=== PATIENT | female | born 1935 | race Caucasian/White ===

== ENCOUNTER → 2018-03-02 11:13 | Outpatient (CLI) | payer MEDICARE, OTHER, SELFPAY ==
[2018-03-02 14:13] LABS: Absolute Lymphocyte Count 1.22 X10^3/ul (0.83-4.51); Absolute Neutrophil Count 3.7 X10^3/uL (2.0-7.7); Basophil# 0.04 X10^3/uL; Basophil% 0.7 % (0-1); Eosinophil# 0.12 X10^3/uL; Eosinophils% 2.2 % (0-5); Hematocrit 35.4 % (37-47); Lymphocyte # 1.22 X10^3/ul (4.0); Lymphocyte % 21.9 % (19-41); Mean Corp Hgb Conc 31.1 g/gl (32-36); Mean Corpuscular Hgb 29.2 pg (27.0-32.0); Mean Corpuscular Volume 93.9 fL (81-99); Mean Platelet Vol. 10.4 fl (6.2-12.0); Monocyte# 0.52 X10^3/uL; Monocyte% 9.4 % (0-10); Neutrophil # 3.65 X10^3/uL (2.7-7.7); Neutrophil % 65.6 % (47-70); Platelet Count 183 K/mm3 (150-450); RBC Distribution Width CV 14.4 % (11.6-14.6); RBC Distribution Width SD 47.5 fl (35.1-43.9); Red Blood Count 3.77 M/mm3 (4.2-5.4); White Blood Count 5.6 K/mm3 (4.4-11.0)
[2018-03-02 14:16] LABS: POSITIVE COUNT NO; POSITIVE DIFFERENTIAL NO; POSITIVE MORPHOLOGY NO
[2018-03-02 14:40] LABS: ALB/GLOB Ratio 1.1 RATIO (0.9-2.4); AST(SGOT) 18 U/L (15-37); Alanine Aminotransfer ALT/SGPT 23 U/L (13-56); Albumin, Serum 3.8 g/dL (3.2-5.0); Alkaline Phosphatase 70 U/L (45-117); Anion Gap 8 (5-15); BUN 26 mg/dL (7-18); Calcium,Total 8.9 mg/dL (8.5-10.1); Chloride 106 mmol/L (98-107); Cholesterol 193 mg/dL (200); Creatinine, Serum 0.93 mg/dL (0.55-1.02); EST Glomerular Filtration Rate 61 mL/min (>60); Est Glom Filt Rate - Afr Amer 74 mL/min (>60); Globulin 3.5 g/dL (2.2-4.2); Glucose 104 mg/dL (74-106); High Density Lipoprotein 77 mg/dL; Protein, Total 7.3 g/dL (6.4-8.2); Sodium Level 142 mmol/L (136-145); Thyroid Stim Hormone (TSH) 1.25 uIU/mL (0.358-3.74); Triglycerides 66 mg/dL; Very Low Density Lipoprotein 13 mg/dL (5-40)
== END ==
PROVIDERS: Family Provider Family Medicine; PCP Family Medicine; Visit Provider Family Medicine
DX: Z02.9 Encounter for administrative examinations, unspecified (principal); E03.9 Hypothyroidism, unspecified; I10 Essential (primary) hypertension
CPT/HCPCS: 36415; 80053; 80061; 84443; 85025

== ENCOUNTER 2018-03-26 10:16 | Emergency (ER) | payer MEDICARE, OTHER, SELFPAY ==
[2018-03-26 10:18] VITALS: BP 164/95; PULSE 63; RESP 18; TEMP 36.3; O2SAT 97; BMI 37.1
--- NOTE | 2018-03-26 10:36 | ED.VISSUMM ---
- ER Visit Summary Date of Service: 03/26/18 Chief Complaint: [] Left knee pain History of Present Illness: The patient is a 83 F [] diabetes and hypertension all of which are stable, arthritis, she has chronic pain to the left knee she seen multiple physicians in the past including orthopedics was told to follow-up, she brought in by grandson no recent injury simply wants to be reevaluated for the knee pain she also complains of pain for over a year and her calf she has no history of DVT recent trauma no fever no cough usually walks with a cane she has angulation to both knees that is not new or different Physical Examination: [] Able to walk to the the bed her heart tones are distant the lungs are clear the abdomen is obese but soft nontender she only complaint is left knee her knee is angulated bilaterally she has full range of motion of both knees she has no real pain with movement of the knees there is some mild swelling there is no warmth or tenderness to suggest knee effusion infection she indicates the knees are usually to this degree she complains of pain to the calf is very mild the distal foot exam is unremarkable normal pulses capillary refill and sensation she is able dorsi and plantarflex at the ankle the toes are normal she is hip flexion extension is normal she able to stand and walk and she is a cane to support herself and her gait is stable and normal Test Results: [] Emergency Department Course and Treatment: [] Duplex scanning is not currently available at [facility] explained this to the patient her's grandson, do not wish to wait for the tach to be called in for the skin to be done, she has never had a DVT before, she is complaining of this calf pain for years, they prefer and understand need for outpatient management for this ultrasound to be obtained, x-rays obtained that shows DJD nothing acute Has been seen in the past by orthopedics for this condition cannot remember who saw her at this time will refer her back to her primary care physician, should have an outpatient duplex scan, she is referred to Dr. Levy adult secondary education instructor for orthopedics and return for change in symptoms, she continues Tylenol for her pain Treatment Plan: [] Disposition: [] Home stable Impression: [] Acute recurrent left knee pain history of arthritis This note was generated with [employer] software. It may contain incorrect words, spelling, and punctuation that were not noted in review of the chart prior to signing ED Disposition - Plan for ED Patient: Chief Complaint: Lower Extremity Injury Instructions: ED Meniscal Injury Knee Poss Referrals: Efrain Corbin MD [Primary Care Provider] - Maximus Levy MD [STAFF PHYSICIAN] -
--- NOTE | 2018-03-26 10:39 | ED.DCSUM_ITS ---
- ER Visit Summary Date of Service: 03/26/18 Chief Complaint: [] Left knee pain History of Present Illness: The patient is a 83 F [] diabetes and hypertension all of which are stable, arthritis, she has chronic pain to the left knee she seen multiple physicians in the past including orthopedics was told to follow-up , she brought in by grandson no recent injury simply wants to be reevaluated for the knee pain she also complains of pain for over a year and her calf she has no history of DVT recent trauma no fever no cough usually walks with a cane she has angulation to both knees that is not new or different Physical Examination: [] Able to walk to the the bed her heart tones are distant the lungs are clear the abdomen is obese but soft nontender she only complaint is left knee her knee is angulated bilaterally she has full range of motion of both knees she has no real pain with movement of the knees there is some mild swelling there is no warmth or tenderness to suggest knee effusion infection she indicates the knees are usually to this degree she complains of pain to the calf is very mild the distal foot exam is unremarkable normal pulses capillary refill and sensation she is able dorsi and plantarflex at the ankle the toes are normal she is hip flexion extension is normal she able to stand and walk and she is a cane to support herself and her gait is stable and normal Test Results: [] Emergency Department Course and Treatment: [] Duplex scanning is not currently available at [facility] explained this to the patient her's grandson, do not wish to wait for the tach to be called in for the skin to be done, she has never had a DVT before, she is complaining of this calf pain for years, they prefer and understand need for outpatient management for this ultrasound to be obtained, x-rays obtained that shows DJD nothing acute Has been seen in the past by orthopedics for this condition cannot remember who saw her at this time will refer her back to her primary care physician, should have an outpatient duplex scan, she is referred to Dr. Levy mounter [employer] for orthopedics and return for change in symptoms, she continues Tylenol for her pain Treatment Plan: [] Disposition: [] Home stable Impression: [] Acute recurrent left knee pain history of arthritis This note was generated with [employer] software. It may contain incorrect words, spelling, and punctuation that were not noted in review of the chart prior to signing ED Disposition - Plan for ED Patient: Chief Complaint: Lower Extremity Injury Instructions: ED Meniscal Injury Knee Poss Referrals: Efrain Corbin MD [Primary Care Provider] - Maximus eLvy MD [STAFF PHYSICIAN] -
--- NOTE | 2018-03-26 10:39 | ED.DEP ---
ED Disposition - Plan for ED Patient: Chief Complaint: Lower Extremity Injury Instructions: ED Meniscal Injury Knee Poss Referrals: Efrain Coribn MD [Primary Care Provider] - Maximus Levy MD [STAFF PHYSICIAN] -
--- NOTE | 2018-03-26 11:05 | RAD_ITS ---
STUDY: X-RAY - LEFT KNEE REASON FOR EXAM: Female, 83 years old. Chronic knee pain TECHNIQUE: 6 view(s) of the knee. COMPARISON: None. FINDINGS: There is demineralization of the visualized distal femur. There is demineralization of the tibia and fibula. There is arthrosis of the proximal tibiofibular articulation. There is severe degenerative arthrosis of the medial femorotibial compartment with severe joint space narrowing. There is severe degenerative arthrosis of the lateral femorotibial compartment with severe joint space narrowing. Normal patellofemoral articulation. There is a chronic remodeled compressed appearance of the lateral compartment. The soft tissue structures are unremarkable. RAD/Knee 4 or More Views IMPRESSION: Advanced left knee arthrosis. Chronic compression of the lateral compartment without acute fracture or obvious joint effusion. Electronically Signed: Nora Fagan MD at 11:31 EDT Tel , Service support ,
[2018-03-26 12:14] VITALS: BP 163/76; PULSE 68; RESP 18; O2SAT 95
== END 2018-03-26 12:14 | disposition home or self-care (01) ==
LOC: ED 11:34
PROVIDERS: Emergency Provider Emergency Medicine; Family Provider Family Medicine; PCP Family Medicine
DX: M17.12 Unilateral primary osteoarthritis, left knee (principal); G89.29 Other chronic pain; I10 Essential (primary) hypertension; E11.9 Type 2 diabetes mellitus without complications; Z79.82 Long term (current) use of aspirin; Z79.84 Long term (current) use of oral hypoglycemic drugs; Z79.899 Other long term (current) drug therapy
CPT/HCPCS: 73564; 99282

== ENCOUNTER → 2018-03-27 10:48 | Outpatient (CLI) | payer MEDICARE, OTHER, SELFPAY ==
--- NOTE | 2018-03-27 11:15 | VDLE_ITS ---
Reason For Study: Pain LLE Procedure LEFT Exam performed in department. GSV is normal. A preliminary report was called and/or faxed CFV is compressible, spontaneous, phasic, to Dr. Corbin. competent, and demonstrates normal augmentation. FV is compressible, spontaneous, phasic, competent and demonstrates normal augmentation. POP V is compressible, spontaneous, phasic, competent and demonstrates normal augmentation. T/P Trunk is compressible. PTV is compressible. LT PerV is compressible. Hypoechoic, non vascular structure noted Lt Pop Fossa measuring 3.60cm x 7.06cm and extending into the prox calf measuring 2.05cm x 7.08cm Lt SSV is partially compressible with bright intraluminal echoes consistent with chronic SVT. Interpretation Summary Deep veins of the left lower extremity are patent and compressible segmentally. There is no evidence of left lower extremity deep vein thrombosis. Valvular competence appears intact within the proximal deep venous system on the left . The left greater saphenous vein appears patent and compressible segmentally. Chronic venous changes are noted in the left small saphenous vein, which is partially compressible and demonstrates bright intraluminal echogenicity. A non-vascular, hypoechoic structure is noted in the left popliteal space, with measurements as documented above. This probably represents a popliteal cyst. Clinical correlation is advised. Ordering Physician: Miriam Massey Referring Physician: Efrain Villegas Performed By: Arielle Rivers, KELSY, RVT
== END ==
PROVIDERS: Family Provider Family Medicine; PCP Family Medicine; Visit Provider Emergency Medicine
DX: M79.662 Pain in left lower leg (principal)
CPT/HCPCS: 93971

== ENCOUNTER 2018-07-17 20:27 | Emergency (ER) | payer MEDICARE, OTHER, SELFPAY ==
[2018-07-17 20:29] VITALS: BP 149/78; PULSE 75; RESP 15; TEMP 36.8; O2SAT 97; BMI 35.5
--- NOTE | 2018-07-17 20:47 | ED.DEP ---
ED Disposition - Plan for ED Patient: Chief Complaint: Rash Instructions: Apixaban Oral tablet Referrals: Efrain Corbin MD [Primary Care Provider] -
--- NOTE | 2018-07-17 20:55 | ED.VISSUMM ---
- ER Visit Summary Date of Service: 07/17/18 Chief Complaint: Concern for rash History of Present Illness: The patient is a 83 F presenting with itching of her left ankle which started earlier today. She is concerned about a possibility of a rash on her left ankle. She started Eliquis recently and was advised to watch for rash. She has no difficulty breathing or swallowing. Itching on her ankle has now resolved. She has no fever. Denies chest pain or shortness of breath. Denies other complaints. Physical Examination: Vitals are stable. Patient is afebrile. Alert no acute distress. HEENT exam is unremarkable. No pharyngeal edema or tongue swelling. Neck is supple. Lungs are clear and equal bilaterally. Heart is regular rate and rhythm. Abdomen is soft nontender nondistended. Extremities are unremarkable. No rash. Normal distal pulses. Skin is warm and dry. No focal neurologic deficit. Remainder of exam is unremarkable. Emergency Department Course and Treatment: Her itching is now resolved. No rash is seen. Patient is advised signs and symptoms for which to return to the ED. She is advised to return to the ED if she has any worsening complaints. Advised follow-up with primary care physician. Disposition: Discharge home Impression: Left ankle itching, resolved This note was generated with [employer] dictation software. It may contain incorrect words, spelling, and punctuation that were not noted in review of the chart prior to signing ED Disposition - Plan for ED Patient: Chief Complaint: Rash Instructions: Apixaban Oral tablet Referrals: Efrain Corbin MD [Primary Care Provider] -
[2018-07-17 21:08] VITALS: BP 130/70
== END 2018-07-17 21:09 | disposition home or self-care (01) ==
LOC: ED 20:50
PROVIDERS: Emergency Provider Emergency Medicine; Family Provider Family Medicine; PCP Family Medicine
DX: L29.9 Pruritus, unspecified (principal); I10 Essential (primary) hypertension; E78.00 Pure hypercholesterolemia, unspecified; E11.9 Type 2 diabetes mellitus without complications; E03.9 Hypothyroidism, unspecified; Z79.82 Long term (current) use of aspirin; Z79.84 Long term (current) use of oral hypoglycemic drugs; Z79.899 Other long term (current) drug therapy
CPT/HCPCS: 99282

== ENCOUNTER → 2018-09-05 11:32 | Outpatient (CLI) | payer MEDICARE, OTHER, SELFPAY ==
[2018-09-05 14:18] LABS: AST(SGOT) 15 U/L (15-37); Alanine Aminotransfer ALT/SGPT 22 U/L (13-56); Albumin, Serum 3.7 g/dL (3.2-5.0); Alkaline Phosphatase 74 U/L (45-117); Anion Gap 9 (5-15); BUN 26 mg/dL (7-18); Bilirubin, Direct 0.19 mg/dL (0.00-0.30); Calcium,Total 9.5 mg/dL (8.5-10.1); Chloride 103 mmol/L (98-107); Cholesterol 227 mg/dL (200); Creatinine, Serum 1.04 mg/dL (0.55-1.02); EST Glomerular Filtration Rate 54 mL/min (>60); Est Glom Filt Rate - Afr Amer 65 mL/min (>60); Globulin 3.8 g/dL (2.2-4.2); Glucose 135 mg/dL (74-106); High Density Lipoprotein 90 mg/dL; Potassium 3.9 mmol/L (3.5-5.1); Protein, Total 7.5 g/dL (6.4-8.2); Sodium Level 141 mmol/L (136-145); Triglycerides 83 mg/dL; Very Low Density Lipoprotein 17 mg/dL (5-40)
[2018-09-05 14:34] LABS: Microalbumin:Creatinine Ratio 63.8 mg/g CRE (<30 mg/g CRE)
== END ==
PROVIDERS: Family Provider Family Medicine; PCP Family Medicine; Visit Provider Family Medicine
DX: E11.9 Type 2 diabetes mellitus without complications (principal)
CPT/HCPCS: 36415; 80048; 80061; 80076; 82043; 82570

== ENCOUNTER → 2019-02-09 12:16 | Outpatient (CLI) | payer MEDICARE, OTHER, SELFPAY ==
[2019-02-09 14:20] LABS: Anion Gap 7 (5-15); BUN 26 mg/dL (7-18); BUN/Creat Ratio 26.8 RATIO (10-20); Calcium,Total 9.5 mg/dL (8.5-10.1); Chloride 104 mmol/L (98-107); Creatinine, Serum 0.97 mg/dL (0.55-1.02); EST Glomerular Filtration Rate 58 mL/min (>60); Est Glom Filt Rate - Afr Amer 70 mL/min (>60); Glucose 127 mg/dL (74-106); Potassium 4.2 mmol/L (3.5-5.1); Sodium Level 141 mmol/L (136-145)
== END ==
PROVIDERS: Family Provider Family Medicine; PCP Family Medicine; Referring Provider Family Medicine; Visit Provider Family Medicine
DX: M79.89 Other specified soft tissue disorders (principal)
CPT/HCPCS: 36415; 80048

== ENCOUNTER 2019-05-20 15:34 | Inpatient (IN) | payer MEDICARE, OTHER, SELFPAY ==
[2019-05-20 15:36] VITALS: BP 156/83; PULSE 79; RESP 18; TEMP 37; O2SAT 97; BMI 34.8
--- NOTE | 2019-05-20 15:37 | RAD_ITS ---
STUDY: X-RAY - LEFT KNEE REASON FOR EXAM: Female, 84 years old. Fall, pain. TECHNIQUE: 3 view(s) of the knee. COMPARISON: None. FINDINGS: Normal visualized distal femur. Normal visualized proximal tibia and fibula. Normal proximal tibiofibular articulation. There is severe degenerative arthrosis of the medial femorotibial compartment with severe joint space narrowing. There is severe degenerative arthrosis of the lateral femorotibial compartment with severe joint space narrowing. There is severe degenerative arthrosis of the patellofemoral articulation. Moderate suprapatellar effusion is present. RAD/Knee 3 Views IMPRESSION: Severe tricompartmental osteoarthrosis with moderate suprapatellar effusion. No evidence of acute fracture. Electronically Signed: Carl Hernandez DO at 16:07 EDT , Service support ,
--- NOTE | 2019-05-20 16:50 | ED.DCSUM_ITS ---
- ER Visit Summary Date of Service: 05/20/19 Chief Complaint: Left knee injury History of Present Illness: The patient is a 84 F who was using her walker today trying to get around a fan that was in the door frame when she tripped over the cord and fell. She notes an injury to the left knee. EMS notes that the knee has been swelling since they have seen her. She is unable to get up off the floor on her own. Son called EMS. She denies any pain in the back of the neck of the head. No arm symptoms. Patient was recently placed on Ultram for severe arthritis in the knees but has not been taking it for the past couple days opting for Tylenol. Physical Examination: Afebrile vital signs are stable Gen: Well-nourished well-developed obese Head: Normocephalic atraumatic Eyes: Perrl EOMI ENT: TMs clear no rhinorrhea moist mucous membranes Neck: Supple no lymphadenopathy no JVD nontender CVS: Regular rate rhythm no murmurs normal S1-S2 Respiratory: No distress clear to auscultation bilaterally chest nontender Abdomen: Soft nontender nondistended normal bowel sounds no masses Back: Nontender Extremity: Extensor mechanism appears intact. Patient has tenderness over the anterior aspect of the knee. There appears to be some suprapatellar swelling. No breaks in the skin. No ice deformity. No obvious ligamentous laxity but the patient guards. Skin: Normal color no rash Neuro: alert orientated ?3 CN II-XII intact normal strength sensation reflexes gait cerebellar Psych: Normal affect normal mood Test Results: X-rays reveal severe tricompartmental arthritic changes but no fracture. No large joint effusion. Emergency Department Course and Treatment: Tom wrap was applied and attempted to ambulate the patient. She was unable to bear any weight. I informed the patient that we could admit her to observation but she would most likely need a rehab facility until she was able to care for herself and it may not be paid for given her insurance. Social work did see the patient and reiterated this as lorrie lynch. Impression: 1. Left knee contusion 2. Left knee suprapatellar traumatic bursitis 3. Inability to walk This note was generated with [employer] dictation software. It may contain incorrect words, spelling, and punctuation that were not noted in review of the chart prior to signing ED Disposition - Plan for ED Patient: Referrals: Efrain Corbin MD [Primary Care Provider] -
--- NOTE | 2019-05-20 17:09 | ED.RN ---
THIS RN AND DANIEL RN MADE AMBULATION ATTEMPT WITH PT. PT UNABLE TO STAND WITH WALKER STATING I CANNOT PUT ANY PRESSURE ON THIS KNEE. PT ASSISTED BACK INTO BED. DR. WILLINGHAM INFORMED.
--- NOTE | 2019-05-20 17:25 | CM.ED ---
Social Work Assessment Referral Date: 05/20/19 Date of Assessment: 05/20/19 Informant: NURSEITZEL AND DR. WILLINGHAM Reason for Consult: HALFWAY PLACEMENT Information obtained from: PATIENT AND PATIENT'S SON, SURAJ ([phone]) Living Arrangements: PATIENT LIVES HOME ALONE IN A 2 STORY HOME. DME: 2 WALKERS Employment/Financial: RETIRED/ OVER INCOME FOR MEDICAID Supports: LIMITED SUPPORT Social/Family Stressors: PATIENT HAD FALL THIS DAY, UNABLE TO AMBULATE. FAMILY UNABLE TO ASSIST WITH CARE. Mental Health History: PATIENT ADMITS TO OF ANXIETY AND STATES WAS PRESCRIBED MEDICATION IN THE PAST. Substance Abuse History: NONE Interventions: SOCIAL SERVICE ASSESSMENT REVIEWED LIST OF NURSING HOMES EDUCATION PROVIDED ON MEDICARE COVERAGE TO HALFWAY AND POSSIBLE PRIVATE PAY Assessment: PATIENT IS A 84 Y/O FEMALE WHO LIVES HOME ALONE. PATIENT REPORTS SUFFERED FROM A FALL THIS DAY AND IS UNABLE TO AMBULATE, UNABLE TO RETURN HOME. DISCUSSED HALFWAY PLACEMENT WITH PATIENT AND WITH DR. WILLINGHAM. ANTICIPATE ADMISSION. EDUCATION PROVIDED ON POSSIBLE NEED FOR PRIVATE PAY TO HALFWAY. PATIENT AND SON VERBALIZE UNDERSTANDING. CORPORATE VP ADVERTISING & ONLINE TO FOLLOW UP ON WEDNESDAY FOR SAFE AND APPROPRIATE D/C PLANNING. PATIENT REQUESTING REFERRAL TO [facility]. PLAN: ADMIT
[2019-05-20 17:43] LABS: Absolute Lymphocyte Count 1.41 X10^3/ul (0.83-4.51); Absolute Neutrophil Count 6.1 X10^3/uL (2.0-7.7); Basophil# 0.02 X10^3/uL; Basophil% 0.2 % (0-1); Eosinophil# 0.11 X10^3/uL; Eosinophils% 1.3 % (0-5); Hemoglobin 10.9 g/dl (12.0-15.0); Lymphocyte # 1.41 X10^3/ul (4.0); Lymphocyte % 17.1 % (19-41); Mean Corp Hgb Conc 31.1 g/gl (32-36); Mean Corpuscular Hgb 28.4 pg (27.0-32.0); Mean Corpuscular Volume 91.1 fL (81-99); Mean Platelet Vol. 10.1 fl (6.2-12.0); Monocyte# 0.65 X10^3/uL; Monocyte% 7.9 % (0-10); Neutrophil # 6.05 X10^3/uL (2.7-7.7); Neutrophil % 73.4 % (47-70); Platelet Count 184 K/mm3 (150-450); RBC Distribution Width SD 49.5 fl (35.1-43.9); Red Blood Count 3.84 M/mm3 (4.2-5.4); White Blood Count 8.3 K/mm3 (4.4-11.0)
[2019-05-20 17:47] LABS: POSITIVE COUNT NO; POSITIVE DIFFERENTIAL NO; POSITIVE MORPHOLOGY NO
[2019-05-20 17:58] LABS: Anion Gap 4 (5-15); BUN 19 mg/dL (7-18); BUN/Creat Ratio 20.2 RATIO (10-20); Calcium,Total 9.1 mg/dL (8.5-10.1); Chloride 107 mmol/L (98-107); Creatinine, Serum 0.94 mg/dL (0.55-1.02); EST Glomerular Filtration Rate 60 mL/min (>60); Est Glom Filt Rate - Afr Amer 73 mL/min (>60); Estimated Creatinine Clearance 46.56 ml/min; Glucose 140 mg/dL (74-106); Potassium 3.5 mmol/L (3.5-5.1); Sodium Level 141 mmol/L (136-145)
[2019-05-20 18:13] VITALS: BP 166/96; PULSE 89; RESP 18; TEMP 36.6; O2SAT 98
[2019-05-20 18:15] VITALS: BP 166/96; PULSE 89; RESP 16; TEMP 36.6; O2SAT 98
--- NOTE | 2019-05-20 18:51 | PCM.HP.STD ---
Problem List (1) Left knee pain Status: Acute Qualifiers: Chronicity: acute Qualified Code(s): M25.562 - Pain in left knee History of Present Illness Date of Admission: 05/20/19 Chief Complaint: left knee pain The patient is a 84 year old F who fell today when trying to walk around a fan and tripped over a cord and fell. Patient fell on her left knee. Patient had swelling. Presented to the emergency room and had an x-ray that showed possible effusion superior to the patella. The try to get her up but she was unable to do so. The talk to the patient, in the emergency room about going to a nursing home facility and stated that she would want to do so and stated that she was aware that she would have to be financially responsible to go to such a facility. The hospital service was contacted to bring the patient in and keep her here to facilitate transfer to a nursing home facility. [] Past Medical History Past Medical History (Chronic Problems): Chronic Problems (Last Reviewed 07/04/18 @ 11:00 by Solange Francois) Type 2 diabetes, controlled, with neuropathy (Chronic) No BG for review. Reports she had her labs done with Dr. Davis. A1c 7.2 which is good for her age and her being on meformin. No low BG readings reported. Cr and GFR normal. Is on asa daily BP controlled On maynor inhibitor On vit D On omega 3 Historically refused statin drugs Medical History: Medical History (Last Reviewed 05/20/19 @ 18:53 by Srini Ruvalcaba DO) Cataracts, bilateral H26.9 Diabetes type 1, controlled E10.9 Type 2 Dx : Last exacerbation : DKA : Hypoglycemic episode : ER visit : Gallstones K80.20 Heart murmur R01.1 Hyperlipidemia E78.5 Hypothyroid E03.9 IBS (irritable bowel syndrome) K58.9 Osteoarthritis M19.90 Seasonal allergies J30.2 HTN (hypertension) I10 Allergies Penicillins Allergy (Severe, Verified 05/20/19 15:35) Unknown red dye Allergy (Severe, Verified 05/20/19 15:35) Unknown Home Medications: Ambulatory Orders Medication Instructions Recorded aspirin 81 mg tablet,delayed 81 mg PO DAILY 11/18/17 release coenzyme Q10 200 mg capsule 200 mg PO QDAY 11/18/17 glucosamine 500 mg-msm 100 mg-vit 1 cap PO DAILY 11/18/17 C 20 ww-bmyqx-pxuk-primrose capsule lisinopril 20 1 tab PO QDAY 11/18/17 mg-hydrochlorothiazide 25 mg tablet metoprolol tartrate 50 mg tablet 50 mg PO QDAY 11/18/17 Cholecalciferol (Vitamin D3) 1,000 unit PO DAILY 03/26/18 [Vitamin D3] Cyanocobalamin (Vitamin B-12) 500 mcg PO DAILY 03/26/18 [Vitamin B-12] Loratadine [Claritin] 10 mg PO DAILY 03/26/18 [place]-3/Dha/Epa/Fish Oil [Fish Oil 1 ea PO DAILY 03/26/18 1,400 mg Softgel] Potassium 99 mg PO DAILY 03/26/18 blood sugar diagnostic strips See Dose Instructions .ROUTE 05/30/18 .MEDSUPPLY #120 ea apixaban 2.5 mg tablet 2.5 mg PO BID 07/04/18 losartan 50 mg-hydrochlorothiazide 1 tab PO QDAY 07/04/18 12.5 mg tablet meloxicam 15 mg tablet 15 mg PO QDAY 07/04/18 multivitamin chewable tablet 1 tab PO QDAY 07/04/18 vitamins A,C,K-yetz-koregp 14,320 1 cap PO QDAY cap 07/04/18 unit-226 mg-200 unit capsule Levothyroxine Sodium [Synthroid] 100 mcg PO DAILY 05/20/19 Lorazepam [Ativan] 0.5 mg PO TID PRN PRN 05/20/19 Metformin HCl 500 mg PO DINNER 05/20/19 metFORMIN HCl [Glucophage] 1,500 mg PO BREAKFAST 05/20/19 Surgical History: Surgical History (Last Reviewed 05/20/19 @ 18:54 by Srini Ruvalcaba DO) History of total abdominal hysterectomy Z98.890, Z90.710 Hx of cholecystectomy Z98.890, Z90.49 Lives: Alone Smoking Status: Never smoker Tobacco Use: Non-smoker Alcohol: None Drugs: None - *Family History Maternal Family History: Family History (Last Reviewed 05/20/19 @ 18:54 by Srini Ruvalcaba DO) Grandmother Cancer CVA (cerebral vascular accident) Mother Diabetes Heart disease Father Heart disease Review of Systems Constitutional: Denies: Chills, Fever, Weight Change Eyes: Denies: Blurred vision, Double vision HEENT: Denies: Head Aches, Sinus Congestion, Sinus Drainage Cardiovascular: Denies: Chest Pain, Palpitations Respiratory: Denies: Cough, Shortness of breath at rest, Sputum production Gastrointestinal: Denies: Abdominal Pain, Nausea, Vomiting Genitourinary: Denies: Dysuria Musculoskeletal: Reports: Neck Pain - Chronic, - - Left knee pain Skin: Denies: Rash, Wounds Neurological: Denies: Numbness, Tingling, Focal weakness Psychiatric: Denies: Anxiety, Depression Hematologic/ Lymphatic: Denies: Easy Bruising, Easy Bleeding, Hx of blood clot Comment: A 10 point review of systems were negative except as mentioned in the history of present illness and the other review of systems. VTE Information - Inpt Only VTE Present on Admission: No VTE Mechan Device Prophylaxis: None VTE Pharm Prophylaxis ordered?: No Reason prophylaxis not ordered:: Procedure Not Indicated Patient Problems: Active and Suspected Problems (Last Reviewed 07/04/18 @ 11:00 by Solange Francois) Left knee pain (Acute) - Physical Exam General: Alert, Cooperative, No apparent distress, - - [place] RESERVATION HEENT: Atraumatic, Normocephalic Oral: Moist Mucosa, No Gingival or Mucosal Lesions/ Ulcerations Neck: No Nodes, Thyroid Normal Size and Texture Lungs: Clear to auscultation, Normal air movement, No rhonchi, No wheeze, No rales Cardiovascular: Regular rate, Regular Rhythm, Normal S1, Normal S2, No murmurs Abdomen: Bowel Sounds Present, Soft, Non Tender, Non-Distended Extremities: No edema, No Calf Tenderness Skin: No rashes, No breakdown Musculoskeletal: - - Left knee pain and effusion. Bilateral knee effusions actually. Tender palpation anteriorly on the left knee. Psych/Mental Status: Normal Affect, Appropriate Vital Signs Temp Pulse Resp BP Pulse Ox 36.6 C 89 16 166/96 H 98 05/20/19 18:15 05/20/19 18:15 05/20/19 18:15 05/20/19 18:15 05/20/19 18:15 Oxygen Delivery Method Room Air Weight: 107.1 kg Body Mass Index (BMI) 34.8 Laboratory Tests Past 24 Hrs 05/20/19 05/20/19 17:26 17:26 WBC 8.3 RBC 3.84 L Hgb 10.9 L Hct 35.0 L MCV 91.1 MCH 28.4 MCHC 31.1 L RDW 15.0 H RDW Differential 49.5 H Plt Count 184 MPV 10.1 Immature Gran % (Auto) 0.100 Neut % (Auto) 73.4 H Lymph % (Auto) 17.1 L [place] % (Auto) 7.9 Eos % (Auto) 1.3 Baso % (Auto) 0.2 Absolute Neuts (auto) 6.1 Absolute Lymphs (auto) 1.41 Total Counted Not Reportable Sodium 141 Potassium 3.5 Chloride 107 Carbon Dioxide 30.0 Anion Gap 4 L BUN 19 H Creatinine 0.94 Estim Creat Clear Calc 46.56 Est GFR (MDRD) Af Amer 73 Est GFR (MDRD) Non-Af 60 BUN/Creatinine Ratio 20.2 H Glucose 140 H Calcium 9.1 Assessment/Plan All Active Problems (Last Reviewed 07/04/18 @ 11:00 by Solange Francois) Left knee pain (Acute) 1. Left knee contusion No fracture but may be a prepatellar bursitis Supportive management. Patient on tramadol at home and will continue. Patient was on meloxicam but that would be discontinued being the fact that she is already on aspirin and apixaban. PRN acetaminophen Ice and elevation 2. Debility: Secondary to above. Physical and occasional therapy evaluate and treat. Plan is for the patient to go to a nursing home facility. Patient and her son were made aware that she will be under observation status and likely will not meet the admission criteria for 3 midnights and they are aware that they will likely be financially responsible for going to a nursing home facility. 3. VTE prophylaxis: Patient is already anticoagulated on apixaban. I do not know why the patient is on apixaban I will see any records that indicate indication why. 4. Diabetes mellitus type 2: Continue with metformin and add sliding scale insulin for while she is here 5. Advanced care planning: Talked with patient about CPR and patient is unsure if she would want that or not. Encouraged her to talk further with her son and other family members about it. Patient will be full CODE STATUS at this time. Code Visit OBSV E&M: 79530 Initial observation care L2
[2019-05-20 18:59] VITALS: BMI 38.2; BMI 38.3
[2019-05-20] MEDS: MELATONIN 3 MG TABLET PO (21:56)
[2019-05-20] MEDS: traMADol 50 MG Tablet PO (21:56)
[2019-05-20] MEDS: APIXABAN 2.5 MG TABLET PO (21:57)
[2019-05-20 23:36] LABS: Bedside Glucose 184 mg/dL (70-110)
[2019-05-21] VITALS (7 sets, daily range): BP systolic 121–154; BP diastolic 67–87; PULSE 60–87; RESP 16–18; TEMP 36.5–36.9; O2SAT 95–97
[2019-05-21] MEDS: Acetaminophen 500 MG Tablet 1000 MG PO ×2 (03:33→09:41)
[2019-05-21] MEDS: Levothyroxine 100 MCG Tablet PO (07:00)
[2019-05-21 07:15] LABS: Bedside Glucose 147 mg/dL (70-110)
[2019-05-21] MEDS: metFORMIN HCl 500 MG Tablet 1500 MG PO (09:35)
[2019-05-21] MEDS: Aspirin E.C. 81 MG Tablet PO (09:35)
[2019-05-21] MEDS: APIXABAN 2.5 MG TABLET PO (09:36)
[2019-05-21] MEDS: Losartan Potassium 50 MG Tablet PO (09:36)
[2019-05-21] MEDS: Loratadine 10 MG Tablet PO (09:36)
[2019-05-21] MEDS: Multivitamins,Therapeutic Tablet 1 TABLET PO (09:36)
[2019-05-21] MEDS: hydroCHLOROthiazide 12.5mg 12.5 MG PO (09:37)
[2019-05-21] MEDS: Omega-3 Acid Ethyl Esters 1 GM Capsule PO (09:37)
[2019-05-21] MEDS: Multivitamin (Healthy Eyes) Capsule 1 CAP PO (09:37)
[2019-05-21] MEDS: Metoprolol Tartrate 50 MG Tablet PO (09:37)
[2019-05-21] MEDS: Cyanocobalamin 500 MCG Tablet PO (09:38)
[2019-05-21] MEDS: traMADol 50 MG Tablet PO ×2 (09:42→15:16)
--- NOTE | 2019-05-21 11:40 | PCM.PN.HOSP ---
Patient Problems: Active and Suspected Problems (Last Reviewed 05/20/19 @ 18:53 by Srini Ruvalcaba DO) Left knee pain (Acute) Subjective: Patient has increased pain and swelling of left knee than her baseline. Patient able to bend only 15 to 30 degrees left knee. Right knee chronic degenerative changes Vitals/I&O's: Vital Signs Temp Pulse Resp BP Pulse Ox 98.1 F 80 18 150/85 H 97 05/21/19 09:33 05/21/19 09:37 05/21/19 09:33 05/21/19 09:33 05/21/19 09:33 Oxygen Delivery Method Room Air Weight: 237 lb Body Mass Index (BMI) 38.2 Intake and Output for Last 24 Hours 05/19/19 05/20/19 05/21/19 23:59 23:59 23:59 Intake Total 338 / 338 Balance 338 / 338 General: Alert, Oriented x3, Cooperative HEENT: Atraumatic, PERRLA, EOMI, Normocephalic, - - Very hard of hearing Neck: Supple, No JVD, Negative Carotid Bruits Lungs: Clear to auscultation, Normal air movement, No rhonchi, No wheeze, No rales Cardiovascular: Regular rate, Regular Rhythm, Normal S1, Normal S2, No murmurs Abdomen: Bowel Sounds Present, Soft, Non Tender, Non-Distended Extremities: No edema, Capillary Refill Less than 3 Seconds Skin: No rashes, No breakdown Musculoskeletal: No Tenderness to Palpation of Joints or Extremities, Arthritic Changes, Tenderness - Tenderness present of left knee. Left knee is swollen, tender and fluid palpable over prepatellar bursa. Does not have redness or erythema or other features suggestive of septic bursitis. Neurological: Cranial nerves II-XII grossly intact, Deep Tendon Reflexes 2+/4 and Symmetrical, Neuro grossly intact Psych/Mental Status: Normal Affect, Appropriate Laboratory Results 05/20/19 17:26: WBC 8.3, RBC 3.84 L, Hgb 10.9 L, Hct 35.0 L, MCV 91.1, MCH 28.4, MCHC 31.1 L, RDW 15.0 H, RDW Differential 49.5 H, Plt Count 184, MPV 10.1, Immature Gran % (Auto) 0.100, Neut % (Auto) 73.4 H, Lymph % (Auto) 17.1 L, [place] % (Auto) 7.9, Eos % (Auto) 1.3, Baso % (Auto) 0.2, Absolute Neuts (auto) 6.1, Absolute Lymphs (auto) 1.41, Total Counted Not Reportable 05/20/19 17:26: Sodium 141, Potassium 3.5, Chloride 107, Carbon Dioxide 30.0, Anion Gap 4 L, BUN 19 H, Creatinine 0.94, Estim Creat Clear Calc 46.56, Est GFR (MDRD) Af Amer 73, Est GFR (MDRD) Non-Af 60, BUN/Creatinine Ratio 20.2 H, Glucose 140 H, Calcium 9.1 05/20/19 22:02: POC Glucose 184 H 05/21/19 06:58: POC Glucose 147 H Current Medications Acetaminophen (Tylenol) 1,000 mg PO Q6H PRN PRN PRN Reason: Mild Pain (1-3)/Temp > 100.7 F Last Admin: 05/21/19 09:41 Dose: 1,000 mg Documented by: Apixaban (Eliquis) 2.5 mg PO BID [facility] Last Admin: 05/21/19 09:36 Dose: 2.5 mg Documented by: Aspirin (Ecotrin) 81 mg PO DAILYCM [facility] Last Admin: 05/21/19 09:35 Dose: 81 mg Documented by: Bisacodyl (Dulcolax) 5 mg PO DAILY PRN PRN PRN Reason: Constipation Cholecalciferol (Vitamin D) 1,000 unit PO DAILY [facility] Last Admin: 05/21/19 09:37 Dose: 1,000 unit Documented by: Cyanocobalamin (Vitamin B12) 500 mcg PO DAILY [facility] Last Admin: 05/21/19 09:38 Dose: 500 mcg Documented by: Dextrose (D50w Syringe) 0 gm IV X1 PRN; Protocol PRN Reason: Hypoglycemia Famotidine (Pepcid) 20 mg PO DAILY [facility] Glucagon () 1 mg IM .X1 PRN PRN Reason: Hypoglycemia Lisinopril/HCTZ (Zestoretic 20/25 Tablet) tablet PO QDAY [facility] Hydrochlorothiazide () 12.5 mg PO DAILY [facility] Last Admin: 05/21/19 09:37 Dose: 12.5 mg Documented by: Ibuprofen (Motrin) 400 mg PO Q8 [facility] Stop: 05/23/19 11:26 Insulin Human Lispro (Humalog Kwikpen (Bkc)) 0 unit SC TIDAC [facility]; Protocol Last Admin: 05/21/19 06:59 Dose: Not Given Documented by: Levothyroxine Sodium (Synthroid) 100 mcg PO DAILY@0600 [facility] Last Admin: 05/21/19 07:00 Dose: 100 mcg Documented by: Loratadine (Claritin) 10 mg PO DAILY [facility] Last Admin: 05/21/19 09:36 Dose: 10 mg Documented by: Losartan Potassium (Cozaar) 50 mg PO DAILY [facility] Last Admin: 05/21/19 09:36 Dose: 50 mg Documented by: Melatonin (Melatonin) 3 mg PO QHS PRN PRN PRN Reason: INSOMNIA Last Admin: 05/20/19 21:56 Dose: 3 mg Documented by: Metformin HCl (Glucophage) 1,500 mg PO BREAKFAST [facility] Last Admin: 05/21/19 09:35 Dose: 1,500 mg Documented by: Metformin HCl (Glucophage) 500 mg PO DINNER [facility] Metoprolol Tartrate (Lopressor (Beta Trevin)) 50 mg PO DAILY [facility] Last Admin: 05/21/19 09:37 Dose: 50 mg Documented by: Multivit[facility] ([facility]itamin) [facility] Last Admin: 05/21/19 09:36 Dose: 1 tablet Documented by: Multivitamins/Minerals (Healthy Eyes) 1 capsule PO DAILY [facility] Last Admin: 05/21/19 09:37 Dose: 1 capsule Documented by: [id number] Ethyl Esters (Lovaza) 1 gm PO DAILY [facility] Last Admin: 05/21/19 09:37 Dose: 1 gm Documented by: Ondansetron HCl (Zofran) 4 mg IV Q8H PRN PRN PRN Reason: NAUSEA/VOMITING Sodium Chloride () 10 - 40 ml IV UD PRN PRN Reason: SALINE FLUSH Tramadol HCl (Ultram) 50 mg PO TID PRN PRN PRN Reason: MODERATE PAIN (4-5/10) Last Admin: 05/21/19 09:42 Dose: 50 mg Documented by: Medical Necessity - Tobacco Use Smoking Status: Never smoker Tobacco Use: Non-smoker Assessment/Plan All Active Problems (Last Reviewed 05/20/19 @ 18:53 by Srini Jopperi, DO) Left knee pain (Acute) The patient is a 84 year old F with history of severe bilateral knee arthritis, on walker/cane at home fell down in bedroom on the left side. The patient lives alone and there is no weakness as well as some she tripped over the cord a friend and fell down. Left knee is more tender and swollen than her baseline swelling. Patient has moderate tricompartmental knee arthritis and gets steroid injection by Dr. Levy. 1. Fall with left knee contusion with swelling most probably prepatellar swelling/bursitis: It seems patient has accumulated more fluid in the prepatellar bursa after fall, most probably reactive does not seem to be infected/septic bursitis. I think it needs therapeutic aspiration to relieve the pressure, tenderness and increased range of motion. Dr. Levy is been consulted. Pain control PT and OT. Need SNF placement. 2. Diabetes mellitus type 2: Check Accu-Cheks before meals and at bedtime. Continue on metformin and sliding scale insulin. 3. DVT prophylaxis: Patient is on Eliquis. On review of records, there is no good indication for Eliquis. Continue Eliquis 2.5 mg twice daily. 4. Patient is very hard of hearing and has poor discrimination score even on getting hearing aid. Need further outpatient audiometry and adjustment of hearing aid. 5. Debility, poor functional capacity and recurrent fall: As mentioned above. Code Visit Inpatient E&M: 07254 Subs Hosp L2
[2019-05-21 12:11] LABS: Bedside Glucose 201 mg/dL (70-110)
[2019-05-21] MEDS: Ibuprofen 400 MG Tablet PO (13:11)
[2019-05-21] MEDS: Famotidine 20 MG Tablet PO (13:13)
--- NOTE | 2019-05-21 14:35 | CON.PCM_ITS ---
Reason for Consult Date of Consultation: 05/21/19 Reason for Consultation: Knee pain, effusion status post fall. Requested by Dr. Andrews History of Present Illness: The patient is a 84 year old F with history of severe left knee osteoarthritis previously treated by me in the office. Patient has had a previous history of corticosteroid injections which did offer some relief. She is also had recent treatment for a left foot fracture which appears to have healed well. Patient notes that yesterday she was walking around the house in her room when she tripped over a cord she fell and hit her knee. After that she had severe swelling of the knee and difficulty with bearing weight. She was brought to the emergency department where she was unable to bear weight and ambulate. She was admitted to the hospital to arrange fpc rehabilitation. Patient notes that today her pain is less than yesterday and her swelling is not as severe. She still notes difficulty with weightbearing. She has associated swelling of the knee. She is able to bend and straighten her knee more than yesterday but has limited range of motion. No fevers chills or night sweats. She is on apixaban for an unknown reason, in fact she question me as to why she was on it and is not in her chart. Patient does report that her swelling, pain and range of motion have improved since admission yesterday. Past Medical History Past Medical History (Chronic Problems): Chronic Problems (Last Reviewed 05/20/19 @ 18:53 by Srini Ruvalcaba DO) Type 2 diabetes, controlled, with neuropathy (Chronic) No BG for review. Reports she had her labs done with Dr. Davis. A1c 7.2 which is good for her age and her being on meformin. No low BG readings reported. Cr and GFR normal. Is on asa daily BP controlled On maynor inhibitor On vit D On omega 3 Historically refused statin drugs Medical History: Medical History (Last Reviewed 05/20/19 @ 18:53 by Srini Ruvalcaba DO) Cataracts, bilateral H26.9 Diabetes type 1, controlled E10.9 Type 2 Dx : Last exacerbation : DKA : Hypoglycemic episode : ER visit : Gallstones K80.20 Heart murmur R01.1 Hyperlipidemia E78.5 Hypothyroid E03.9 IBS (irritable bowel syndrome) K58.9 Osteoarthritis M19.90 Seasonal allergies J30.2 HTN (hypertension) I10 Allergies Penicillins Allergy (Severe, Verified 05/20/19 19:30) Unknown red dye Allergy (Severe, Verified 05/20/19 19:30) Unknown Home Medications: Ambulatory Orders Medication Instructions Recorded coenzyme Q10 200 mg capsule 200 mg PO QDAY 11/18/17 glucosamine 500 mg-msm 100 mg-vit 1 cap PO DAILY 11/18/17 C 20 ku-uawmi-lyrs-primrose capsule lisinopril 20 1 tab PO QDAY 11/18/17 mg-hydrochlorothiazide 25 mg tablet metoprolol tartrate 50 mg tablet 50 mg PO QDAY 11/18/17 Cholecalciferol (Vitamin D3) 1,000 unit PO DAILY 03/26/18 [Vitamin D3] Cyanocobalamin (Vitamin B-12) 500 mcg PO DAILY 03/26/18 [Vitamin B-12] Loratadine [Claritin] 10 mg PO DAILY 03/26/18 [place]-3/Dha/Epa/Fish Oil [Fish Oil 1 ea PO DAILY 03/26/18 1,400 mg Softgel] Potassium 99 mg PO DAILY 03/26/18 blood sugar diagnostic strips See Dose Instructions .ROUTE 05/30/18 .MEDSUPPLY #120 ea apixaban 2.5 mg tablet 2.5 mg PO BID 07/04/18 losartan 50 mg-hydrochlorothiazide 1 tab PO QDAY 07/04/18 12.5 mg tablet meloxicam 15 mg tablet 15 mg PO QDAY 07/04/18 multivitamin chewable tablet 1 tab PO QDAY 07/04/18 vitamins A,C,C-zrrj-iruusg 14,320 1 cap PO QDAY cap 07/04/18 unit-226 mg-200 unit capsule Levothyroxine Sodium [Synthroid] 100 mcg PO DAILY 05/20/19 Lorazepam [Ativan] 0.5 mg PO TID PRN PRN 05/20/19 Metformin HCl 500 mg PO DINNER 05/20/19 metFORMIN HCl [Glucophage] 1,500 mg PO BREAKFAST 05/20/19 Surgical History: Surgical History (Last Reviewed 05/20/19 @ 18:54 by Srini Ruvalcaba DO) History of total abdominal hysterectomy Z98.890, Z90.710 Hx of cholecystectomy Z98.890, Z90.49 Lives: Alone Smoking Status: Never smoker Tobacco Use: Non-smoker Alcohol: None Drugs: None - *Family History Maternal Family History: Family History (Last Reviewed 05/20/19 @ 18:54 by Srini Ruvalcaba DO) Grandmother Cancer CVA (cerebral vascular accident) Mother Diabetes Heart disease Father Heart disease Review of Systems Constitutional: Denies: Chills, Fever, Weight Change HEENT: Reports: Hard of Hearing. Denies: Head Aches, Sinus Congestion, Sinus Drainage Cardiovascular: Denies: Chest Pain, Palpitations Respiratory: Denies: Cough, Shortness of breath at rest, Sputum production Gastrointestinal: Denies: Abdominal Pain, Nausea, Vomiting Genitourinary: Denies: Dysuria Musculoskeletal: Reports: Joint Pain, Joint stiffness, Joint swelling, Joint Tenderness Skin: Denies: Rash, Wounds Neurological: Denies: Numbness, Tingling, Focal weakness Psychiatric: Denies: Anxiety, Depression, Homicidal Ideations, Suicidal Ideations Hematologic/ Lymphatic: Denies: Easy Bruising, Easy Bleeding Patient Problems: Active and Suspected Problems (Last Reviewed 05/20/19 @ 18:53 by Srini Ruvalcaba DO) Left knee pain (Acute) Objective: Left knee x-rays show severe tricompartmental osteoarthritis with large osteophytes and bony erosions. No acute fractures or bony lesions are noted. - Physical Exam General: Alert, Oriented x3, Cooperative Extremities: - - Left lower extremity: Large effusion of the left knee. Tenderness with range of motion. Range of motion is 20-90. Minimal overlying ecchymosis. Neurovascular intact distally. Vital Signs Temp Pulse Resp BP Pulse Ox 98.1 F 80 18 150/85 H 97 05/21/19 09:33 05/21/19 09:37 05/21/19 09:33 05/21/19 09:33 05/21/19 09:33 Oxygen Delivery Method Room Air Weight: 237 lb Body Mass Index (BMI) 38.2 Intake and Output for Last 24 Hours 05/19/19 05/20/19 05/21/19 23:59 23:59 23:59 Intake Total 338 / 338 Balance 338 / 338 Laboratory Tests Past 24 Hrs 05/20/19 05/20/19 17:26 17:26 WBC 8.3 RBC 3.84 L Hgb 10.9 L Hct 35.0 L MCV 91.1 MCH 28.4 MCHC 31.1 L RDW 15.0 H RDW Differential 49.5 H Plt Count 184 MPV 10.1 Immature Gran % (Auto) 0.100 Neut % (Auto) 73.4 H Lymph % (Auto) 17.1 L [place] % (Auto) 7.9 Eos % (Auto) 1.3 Baso % (Auto) 0.2 Absolute Neuts (auto) 6.1 Absolute Lymphs (auto) 1.41 Total Counted Not Reportable Sodium 141 Potassium 3.5 Chloride 107 Carbon Dioxide 30.0 Anion Gap 4 L BUN 19 H Creatinine 0.94 Estim Creat Clear Calc 46.56 Est GFR (MDRD) Af Amer 73 Est GFR (MDRD) Non-Af 60 BUN/Creatinine Ratio 20.2 H Glucose 140 H Calcium 9.1 POC Glucose 05/21/19 05/21/19 05/20/19 12:08 06:58 22:02 POC Glucose 201 H 147 H 184 H Assessment/Plan All Active Problems (Last Reviewed 05/20/19 @ 18:53 by Srini Ruvalcaba DO) Left knee pain (Acute) Severe left knee osteoarthritis with acute hemarthrosis. Acute hemarthrosis likely due to her mild trauma but associated with history of treatment with apixaban and blood thinners. I discussed the patient natural history of the disease process and treatment options. We discussed acute asp iration versus mobilization and physical therapy versus corticosteroid injection for relief of pain. Based on the patient's x-ray showing a large hemarthrosis I do not feel now is an appropriate time for corticosteroid injections with resolution and likely decreased effectiveness. Based on her improvement over the last 24 hours I recommend physical therapy with mobilization. If possible it will benefit patient to discontinue blood thinners if not medically necessary. Patient can be weightbearing as tolerated. I would like to reevaluate the patient in 2 weeks to see how her mobility is improving. We have elected not to aspirate the patient as she has made reported improvements over the last 24 hours. Plan will be for her to be discharged to a rehabilitation facility until her mobility is improved as she lives at home alone. We also discussed possibility that long-term she may need increased assistance. Patient may also benefit from a short course of oral corticosteroids (Medrol Dosepak). Please call orthopedics with any further questions. Disposition: Physical therapy, weightbearing as tolerated, range of motion as tolerated. Pain management per primary service. Consider Medrol Dosepak. Follow-up with orthopedics in 2 weeks. RAD[facility] Office:
[2019-05-21] MEDS: 0.9% NaCl Peripheral Flush Adult/Peds IV ×2 (16:49→21:00)
[2019-05-21 16:51] LABS: Bedside Glucose 149 mg/dL (70-110)
[2019-05-21 20:55] LABS: Bedside Glucose 223 mg/dL (70-110)
[2019-05-22 02:24] VITALS: BP 139/73; PULSE 77; RESP 18; TEMP 36.9; O2SAT 95
[2019-05-22] MEDS: Levothyroxine 100 MCG Tablet PO (06:01)
[2019-05-22] MEDS: 0.9% NaCl Peripheral Flush Adult/Peds IV (06:02)
[2019-05-22 06:50] LABS: Bedside Glucose 177 mg/dL (70-110)
[2019-05-22] MEDS: Omega-3 Acid Ethyl Esters 1 GM Capsule PO (08:45)
[2019-05-22 08:46] VITALS: PULSE 73
[2019-05-22] MEDS: Loratadine 10 MG Tablet PO (08:46)
[2019-05-22] MEDS: Losartan Potassium 50 MG Tablet PO (08:46)
[2019-05-22] MEDS: Famotidine 20 MG Tablet PO (08:46)
[2019-05-22] MEDS: Multivitamins,Therapeutic Tablet 1 TABLET PO (08:46)
[2019-05-22] MEDS: Metoprolol Tartrate 50 MG Tablet PO (08:46)
[2019-05-22] MEDS: hydroCHLOROthiazide 12.5mg 12.5 MG PO (08:46)
[2019-05-22] MEDS: Multivitamin (Healthy Eyes) Capsule 1 CAP PO (08:47)
[2019-05-22] MEDS: Cyanocobalamin 500 MCG Tablet PO (08:47)
[2019-05-22 08:50] VITALS: BP 143/76; PULSE 73; RESP 18; TEMP 36.8; O2SAT 96
[2019-05-22] MEDS: Acetaminophen 500 MG Tablet 1000 MG PO ×2 (09:00→22:57)
[2019-05-22 12:10] LABS: Bedside Glucose 269 mg/dL (70-110)
--- NOTE | 2019-05-22 13:54 | PCM.PN.HOSP ---
Patient Problems: Active and Suspected Problems (Last Reviewed 05/20/19 @ 18:53 by Srini Ruvalcaba DO) Left knee pain (Acute) Subjective: Talk to the patient's daughter DEBROH and discussed about the patient medications. Patient had a concern about Eliquis but she is on from home . When I asked what is the indication of anticoagulant Eliquis, she could not tell me and was told that it was started by outside physician and [facility]. She denies history of A. fib, DVT/PE or arterial thrombosis. She has history of murmur. Vitals/I&O's: Vital Signs Temp Pulse Resp BP Pulse Ox 98.2 F 73 18 143/76 H 96 05/22/19 08:50 05/22/19 08:50 05/22/19 08:50 05/22/19 08:50 05/22/19 08:50 Oxygen Delivery Method Room Air Weight: 237 lb Body Mass Index (BMI) 38.2 Intake and Output for Last 24 Hours 05/20/19 05/21/19 05/22/19 23:59 23:59 23:59 Intake Total 338 / 338 610 / 610 Balance 338 / 338 610 / 610 General: Alert, Oriented x3, Cooperative HEENT: Atraumatic, PERRLA, EOMI, Normocephalic Oral: No Gingival or Mucosal Lesions/ Ulcerations Neck: Supple, No JVD, Negative Carotid Bruits Lungs: Clear to auscultation, No rhonchi, No wheeze, No rales, Diminished - Air entry is diminished bilaterally in lung bases Cardiovascular: Regular rate, Regular Rhythm, Normal S1, Normal S2, Murmur Abdomen: Bowel Sounds Present, Soft, Non Tender Extremities: No edema, Capillary Refill Less than 3 Seconds Skin: No rashes, No breakdown Musculoskeletal: No Tenderness to Palpation of Joints or Extremities, Arthritic Changes Neurological: Cranial nerves II-XII grossly intact, Deep Tendon Reflexes 2+/4 and Symmetrical, Neuro grossly intact Psych/Mental Status: Normal Affect, Appropriate Laboratory Results 05/21/19 16:40: POC Glucose 149 H 05/21/19 20:42: POC Glucose 223 H 05/22/19 06:42: POC Glucose 177 H 05/22/19 11:45: POC Glucose 269 H Current Medications Acetaminophen (Tylenol) 1,000 mg PO Q6H PRN PRN PRN Reason: Mild Pain (1-3)/Temp > 100.7 F Last Admin: 05/22/19 09:00 Dose: 1,000 mg Documented by: Bisacodyl (Dulcolax) 5 mg PO DAILY PRN PRN PRN Reason: Constipation Cholecalciferol (Vitamin D) 1,000 unit PO DAILY [facility] Last Admin: 05/21/19 09:37 Dose: 1,000 unit Documented by: Cyanocobalamin (Vitamin B12) 500 mcg PO DAILY [facility] Last Admin: 05/22/19 08:47 Dose: 500 mcg Documented by: Dextrose (D50w Syringe) 0 gm IV X1 PRN; Protocol PRN Reason: Hypoglycemia Famotidine (Pepcid) 20 mg PO DAILY [facility] Last Admin: 05/22/19 08:46 Dose: 20 mg Documented by: Glipizide (Glucotrol) 5 mg PO BIDAC [facility] Glucagon () 1 mg IM .X1 PRN PRN Reason: Hypoglycemia Hydrochlorothiazide () 12.5 mg PO DAILY [facility] Last Admin: 05/22/19 08:46 Dose: 12.5 mg Documented by: Insulin Glargine (Lantus (Bkc)) 8 units SC QHS [facility] Last Admin: 05/21/19 21:02 Dose: Not Given Documented by: Insulin Human Lispro (Humalog Kwikpen (Bkc)) 0 unit SC TIDAC [facility]; Protocol Last Admin: 05/22/19 12:28 Dose: Not Given Documented by: Levothyroxine Sodium (Synthroid) 100 mcg PO DAILY@0600 [facility] Last Admin: 05/22/19 06:01 Dose: 100 mcg Documented by: Loratadine (Claritin) 10 mg PO DAILY [facility] Last Admin: 05/22/19 08:46 Dose: 10 mg Documented by: Losartan Potassium (Cozaar) 50 mg PO DAILY [facility] Last Admin: 05/22/19 08:46 Dose: 50 mg Documented by: Melatonin (Melatonin) 3 mg PO QHS PRN PRN PRN Reason: INSOMNIA Last Admin: 05/20/19 21:56 Dose: 3 mg Documented by: Metformin [facility] (Glucophage) [facility] Metoprolol Tartrate (Lopressor (Beta Trevin)) 50 mg PO DAILY [facility] Last Admin: 05/22/19 08:46 Dose: 50 mg Documented by: Multivitamins (Multivitamin) [facility] Last Admin: 05/22/19 08:46 Dose: 1 tablet Documented by: Multivitamins/Minerals (Healthy Eyes) 1 capsule PO DAILY [facility] Last Admin: 05/22/19 08:47 Dose: 1 capsule Documented by: [id number] Ethyl Esters (Lovaza) 1 gm PO DAILY [facility] Last Admin: 05/22/19 08:45 Dose: 1 gm Documented by: Ondansetron HCl (Zofran) 4 mg IV Q8H PRN PRN PRN Reason: NAUSEA/VOMITING Oxycodone HCl (Oxyir) 10 mg PO Q4H PRN PRN PRN Reason: SEVERE PAIN (6-10/10) Prednisone () 40 mg PO DAILY@0800 [facility] Sodium Chloride () 10 - 40 ml IV UD PRN PRN Reason: SALINE FLUSH Last Admin: 05/22/19 06:02 Dose: 10 ml Documented by: Tramadol HCl (Ultram) 50 mg PO TID PRN PRN PRN Reason: MODERATE PAIN (4-5/10) Last Admin: 05/21/19 15:16 Dose: 50 mg Documented by: Medical Necessity - Tobacco Use Smoking Status: Never smoker Tobacco Use: Non-smoker Assessment/Plan All Active Problems (Last Reviewed 05/20/19 @ 18:53 by Srini Ruvalcaba DO) Left knee pain (Acute) The patient is a 84 year old F with history of severe bilateral knee arthritis, on walker/cane at home fell down in bedroom on the left side. The patient lives alone and there is no weakness as well as some she tripped over the cord a friend and fell down. Left knee is more tender and swollen than her baseline swelling. Patient has moderate tricompartmental knee arthritis and gets steroid injection by Dr. Levy. 1. Fall with left knee contusion with swelling most probably prepatellar swelling/bursitis: The patient was seen by Dr. Levy. His impression is likely hemarthrosis as the patient was on Eliquis, meloxicam at home. The patient preferred steroid treatment with physical therapy and immobilization. Range of motion has improved. Eliquis and NSAIDs have already been discontinued. Discussed with the patient's daughter Nora and she is unclear about the indication of anticoagulant. It was started in the outside hospital probably in [facility] about 1 or 2 years ago. She denies history of A. fib, DVT/PE arterial thrombosis. Medroxyprogesterone suggested by Dr. Levy started. Plan continue PT OT and discharge to SNF. 2. Diabetes mellitus type 2 with hyperglycemia secondary to Solu-Medrol: Check Accu-Cheks before meals and at bedtime. The patient is refusing for insulin. Subsequently patient started on glipizide 500 mg twice daily and metformin and titrate the dose according to Accu-Cheks. 3. DVT prophylaxis: Patient is on Eliquis. On review of records, there is no good indication for Eliquis. Liquids discontinued. Bilateral SCDs 4. Patient is very hard of hearing and has poor discrimination score even on hearing aid. Need further outpatient audiometry and adjustment of hearing aid. 5. Debility, poor functional capacity and recurrent fall: As mentioned above. Laboratory Results 05/21/19 16:40: POC Glucose 149 H 05/21/19 20:42: POC Glucose 223 H 05/22/19 06:42: POC Glucose 177 H 05/22/19 11:45: POC Glucose 269 H Code Visit Inpatient E&M: 33355 Subs Hosp L3
--- NOTE | 2019-05-22 14:46 | CASEMGMT ---
Social Work Note LINDA met with pt and pt's daughter Anabel present in room. Pt gave this worker permission to speak to her in front of her guest. Pt and Anabel confirm that pt would like to go to [facility] at discharge. SW explained three midnight requirement and that per physician pt is going to be at [facility] until Wednesday. SW explained Medicare guidelines at [facility] and explained that this worker will have to make referral to [facility] to confirm if they are able to accept pt. Pt and Anabel state understanding. Anabel asked about speaking to physician regarding pt's current medications that pt is on. SW informed Anabel that this worker can relay the message to the physician that she would like to speak to physician. Anabel states understanding, provided number [phone]. Anabel does state that pt's son Heladio is HCPOA. LINDA faxed referral to Mary at [facility] and placed a call to Mary regarding referral. SW received message from Mary at [facility] stating she is able to accept pt Wednesday. LINDA attempted to update pt, pt currently with [facility]. LINDA attempted to call pt's son Heladio but no answer and voicemail is full. LINDA placed a call to pt's daughter Anabel and updated her on acceptance to [facility] and that this worker attempted to call Heladio but there was no answer. Anabel states Heladio is currently at work and she will try to call Heladio later today to update him. Plan: [facility] Wednesday Lola Campbell [employer], [employer]
--- NOTE | 2019-05-22 15:17 | CHAPLAIN ---
Type of Pastoral Visit _x__ Initial Visit ___ Follow-up Visit ___ On-call Visit ___ General Patient Visit ___ Spiritual Assessment ___ Family Conference ___ Bereavement ___ Rapid Response ___ Code Blue ___ Other (describe below) Pastoral Care Referral From _x__ Patient ___ Family ___ Nurse ___ Physician ___ Operations Manager Station ___ Motion Picture Scene Builder ___ Other (describe below) Sacrament/Intervention _x__ Active listening ___ Anointing ___ Mandaeism ___ Bereavement ___ Communion _x__ Tiffany exploration ___ _x__ Life review _x__ Prayer ___ Reconciliation ___ Sacrament of Sick _x__ Supportive presence ___ Wedding ___ Other (describe below) Pastoral Comments patient talks about being harassed by phone scammers, not being able to do her steps into home safely and mowing my own lawn; pt repeats several times that [place] [facility]; pt is connected to a local quaker but has not been there in years and no one checks on her; pt is hard of hearing; pt says she has a somewhat strained relationship with her only daughter; pt relies on her son for many things but adds he has his own health problems too
[2019-05-22 15:23] VITALS: BP 135/73; PULSE 64; RESP 18; TEMP 36.5; O2SAT 98
[2019-05-22 16:16] LABS: Bedside Glucose 254 mg/dL (70-110)
[2019-05-22] MEDS: metFORMIN HCl 500 MG Tablet PO (16:16)
[2019-05-22] MEDS: glipiZIDE 5 MG Tablet PO (16:16)
[2019-05-22 20:45] VITALS: BP 113/79; PULSE 69; RESP 18; TEMP 36.7; O2SAT 95
[2019-05-22 22:01] LABS: Bedside Glucose 143 mg/dL (70-110)
[2019-05-23 02:20] VITALS: BP 98/52; PULSE 60; RESP 18; TEMP 36.8; O2SAT 95
[2019-05-23 06:31] LABS: Absolute Lymphocyte Count 2.49 X10^3/ul (0.83-4.51); Absolute Neutrophil Count 6.2 X10^3/uL (2.0-7.7); Basophil# 0.02 X10^3/uL; Basophil% 0.2 % (0-1); Eosinophil# 0.08 X10^3/uL; Eosinophils% 0.8 % (0-5); Hematocrit 33.8 % (37-47); Hemoglobin 10.7 g/dl (12.0-15.0); Lymphocyte # 2.49 X10^3/ul (4.0); Lymphocyte % 25.7 % (19-41); Mean Corp Hgb Conc 31.7 g/gl (32-36); Mean Corpuscular Hgb 28.7 pg (27.0-32.0); Mean Corpuscular Volume 90.6 fL (81-99); Mean Platelet Vol. 9.9 fl (6.2-12.0); Monocyte# 0.87 X10^3/uL; Neutrophil # 6.21 X10^3/uL (2.7-7.7); Neutrophil % 64.1 % (47-70); Platelet Count 185 K/mm3 (150-450); RBC Distribution Width SD 49.2 fl (35.1-43.9); Red Blood Count 3.73 M/mm3 (4.2-5.4); White Blood Count 9.7 K/mm3 (4.4-11.0)
[2019-05-23 06:32] LABS: POSITIVE COUNT NO; POSITIVE DIFFERENTIAL NO; POSITIVE MORPHOLOGY NO
[2019-05-23] MEDS: Levothyroxine 100 MCG Tablet PO (06:39)
[2019-05-23 06:45] LABS: Bedside Glucose 135 mg/dL (70-110)
[2019-05-23 06:50] LABS: Anion Gap 8 (5-15); BUN 38 mg/dL (7-18); BUN/Creat Ratio 37.6 RATIO (10-20); Chloride 106 mmol/L (98-107); Creatinine, Serum 1.01 mg/dL (0.55-1.02); EST Glomerular Filtration Rate 56 mL/min (>60); Est Glom Filt Rate - Afr Amer 67 mL/min (>60); Estimated Creatinine Clearance 38.82 ml/min; Glucose 138 mg/dL (74-106); Potassium 3.6 mmol/L (3.5-5.1); Sodium Level 142 mmol/L (136-145)
[2019-05-23] MEDS: glipiZIDE 5 MG Tablet PO (07:30)
[2019-05-23] MEDS: metFORMIN HCl 500 MG Tablet PO ×2 (07:30→17:40)
[2019-05-23 07:56] VITALS: PULSE 61
[2019-05-23] MEDS: predniSONE 20 MG Tablet 40 MG PO (07:56)
[2019-05-23] MEDS: Multivitamin (Healthy Eyes) Capsule 1 CAP PO (07:56)
[2019-05-23] MEDS: Multivitamins,Therapeutic Tablet 1 TABLET PO (07:56)
[2019-05-23] MEDS: Metoprolol Tartrate 50 MG Tablet PO (07:56)
[2019-05-23] MEDS: Famotidine 20 MG Tablet PO (07:56)
[2019-05-23] MEDS: hydroCHLOROthiazide 12.5mg 12.5 MG PO (07:57)
[2019-05-23] MEDS: Omega-3 Acid Ethyl Esters 1 GM Capsule PO (07:57)
[2019-05-23] MEDS: Loratadine 10 MG Tablet PO (07:57)
[2019-05-23] MEDS: Cyanocobalamin 500 MCG Tablet PO (07:57)
[2019-05-23] MEDS: Losartan Potassium 50 MG Tablet PO (07:57)
[2019-05-23] MEDS: Acetaminophen 500 MG Tablet 1000 MG PO (08:03)
[2019-05-23 08:20] VITALS: BP 139/69; PULSE 61; RESP 18; TEMP 36.7; O2SAT 94
[2019-05-23 11:51] LABS: Bedside Glucose 205 mg/dL (70-110)
--- NOTE | 2019-05-23 12:08 | CASEMGMT ---
Social Work Note LINDA met with pt and pt's daughter Anabel present in room. SW updated pt on acceptance to [facility] and that pt will be discharged to [facility] tomorrow. Pt states that she will need transportation arranged. LINDA informed pt and Anabel that pt should be able to be transported via wheelchair van and pt's insurance doesn't pay for wheelchair van so pt will get a bill for wheelchair van transportation. Anabel states that she should be able to transport pt tomorrow to SNF. Plan: [facility] skilled tomorrow Lola Campbell UG DESIGNER, GEM TECHNICIAN
[2019-05-23 14:20] VITALS: BP 149/79; PULSE 65; RESP 18; TEMP 36.7; O2SAT 95
--- NOTE | 2019-05-23 15:13 | PN_ITS ---
Patient Problems: Active and Suspected Problems (Last Reviewed 05/20/19 @ 18:53 by Srini Ruvalcaba DO) Left knee pain (Acute) Subjective: Patient left knee swelling and pain is much better. Discussed with the patient's daughter, Ms. Melendez patient in the bedroom. Patient blood sugar is much better controlled. Vitals/I&O's: Vital Signs Temp Pulse Resp BP Pulse Ox 98.0 F 61 18 139/69 H 94 05/23/19 08:20 05/23/19 08:20 05/23/19 08:20 05/23/19 08:20 05/23/19 08:20 Oxygen Delivery Method Room Air Weight: 237 lb Body Mass Index (BMI) 38.2 Intake and Output for Last 24 Hours 05/21/19 05/22/19 05/23/19 23:59 23:59 23:59 Intake Total 338 / 338 610 / 810 400 / 400 Balance 338 / 338 610 / 810 400 / 400 General: Alert, Oriented x3, Cooperative HEENT: Atraumatic, PERRLA, EOMI, Normocephalic Neck: Supple, No JVD, Negative Carotid Bruits Lungs: Clear to auscultation, No rhonchi, No wheeze, No rales, Diminished Cardiovascular: Regular rate, Regular Rhythm, Normal S1, Normal S2, Murmur - Systolic murmur present. Abdomen: Bowel Sounds Present, Soft, Non Tender, Non-Distended Extremities: No edema, Capillary Refill Less than 3 Seconds Skin: No rashes, No breakdown Musculoskeletal: No Tenderness to Palpation of Joints or Extremities, Arthritic Changes, Muscle Wasting, - - Bilateral knee arthritis. Left knee swelling has decreased. Range of motion has improved. Neurological: Cranial nerves II-XII grossly intact Psych/Mental Status: Normal Affect, Appropriate Laboratory Results 05/22/19 16:09: POC Glucose 254 H 05/22/19 21:48: POC Glucose 143 H 05/23/19 06:20: WBC 9.7, RBC 3.73 L, Hgb 10.7 L, Hct 33.8 L, MCV 90.6, MCH 28.7, MCHC 31.7 L, RDW 15.0 H, RDW Differential 49.2 H, Plt Count 185, MPV 9.9, Immature Gran % (Auto) 0.200, Neut % (Auto) 64.1, Lymph % (Auto) 25.7, [place] % (Auto) 9.0, Eos % (Auto) 0.8, Baso % (Auto) 0.2, Absolute Neuts (auto) 6.2, Absolute Lymphs (auto) 2.49, Total Counted Not Reportable 05/23/19 06:20: Sodium 142, Potassium 3.6, Chloride 106, Carbon Dioxide 28.0, Anion Gap 8, BUN 38 H, Creatinine 1.01, Estim Creat Clear Calc 38.82, Est GFR (MDRD) Af Amer 67, Est GFR (MDRD) Non-Af 56 L, BUN/Creatinine Ratio 37.6 H, Glucose 138 H, Calcium 9.0 05/23/19 06:37: POC Glucose 135 H 05/23/19 11:36: POC Glucose 205 H Current Medications Acetaminophen (Tylenol) 1,000 mg PO Q6H PRN PRN PRN Reason: Mild Pain (1-3)/Temp > 100.7 F Last Admin: 05/23/19 08:03 Dose: 1,000 mg Documented by: Bisacodyl (Dulcolax) 5 mg PO DAILY PRN PRN PRN Reason: Constipation Cholecalciferol (Vitamin D) 1,000 unit PO DAILY [facility] Last Admin: 05/23/19 07:58 Dose: 1,000 unit Documented by: Cyanocobalamin (Vitamin B12) 500 mcg PO DAILY [facility] Last Admin: 05/23/19 07:57 Dose: 500 mcg Documented by: Dextrose (D50w Syringe) 0 gm IV X1 PRN; Protocol PRN Reason: Hypoglycemia Famotidine (Pepcid) 20 mg PO DAILY [facility] Last Admin: 05/23/19 07:56 Dose: 20 mg Documented by: Glipizide (Glucotrol) 5 mg PO BIDAC [facility] Last Admin: 05/23/19 07:30 Dose: 5 mg Documented by: Glucagon () 1 mg IM .X1 PRN PRN Reason: Hypoglycemia Hydrochlorothiazide () 12.5 mg PO DAILY [facility] Last Admin: 05/23/19 07:57 Dose: 12.5 mg Documented by: Insulin Human Lispro (Humalog Kwikpen (Bkc)) 0 unit SC TIDAC [facility]; Protocol Last Admin: 05/23/19 11:40 Dose: Not Given Documented by: Levothyroxine Sodium (Synthroid) 100 mcg PO DAILY@0600 [facility] Last Admin: 05/23/19 06:39 Dose: 100 mcg Documented by: Loratadine (Claritin) 10 mg PO DAILY [facility] Last Admin: 05/23/19 07:57 Dose: 10 mg Documented by: Losartan Potassium (Cozaar) 50 mg PO DAILY [facility] Last Admin: 05/23/19 07:57 Dose: 50 mg Documented by: Melatonin (Melatonin) 3 mg PO QHS PRN PRN PRN Reason: INSOMNIA Last Admin: 05/20/19 21:56 Dose: 3 mg Documented by: Met[facility] ([facility]ucophage) [facility] Last Admin: 05/23/19 07:30 Dose: 500 mg Documented by: Metoprolol Tartrate (Lopressor (Beta Trevin)) 50 mg PO DAILY [facility] Last Admin: 05/23/19 07:56 Dose: 50 mg Documented by: Multivitamins (Multivitamin) [facility] Last Admin: 05/23/19 07:56 Dose: 1 tablet Documented by: Multivitamins/Minerals (Healthy Eyes) 1 capsule PO DAILY [facility] Last Admin: 05/23/19 07:56 Dose: 1 capsule Documented by: Ohebr-9-Cbrh Ethyl Esters (Lovaza) 1 gm PO DAILY [facility] Last Admin: 05/23/19 07:57 Dose: 1 gm Documented by: Ondansetron HCl (Zofran) 4 mg IV Q8H PRN PRN PRN Reason: NAUSEA/VOMITING Oxycodone HCl (Oxyir) 10 mg PO Q4H PRN PRN PRN Reason: SEVERE PAIN (6-10/10) Prednisone () 40 mg PO DAILY@0800 [facility] Last Admin: 05/23/19 07:56 Dose: 40 mg Documented by: Sodium Chloride () 10 - 40 ml IV UD PRN PRN Reason: SALINE FLUSH Last Admin: 05/22/19 06:02 Dose: 10 ml Documented by: Tramadol HCl (Ultram) 50 mg PO TID PRN PRN PRN Reason: MODERATE PAIN (4-5/10) Last Admin: 05/21/19 15:16 Dose: 50 mg Documented by: Medical Necessity - Tobacco Use Smoking Status: Never smoker Tobacco Use: Non-smoker Assessment/Plan All Active Problems (Last Reviewed 05/20/19 @ 18:53 by Srini Ruvalcaba DO) Left knee pain (Acute) The patient is a 84 year old F with history of severe bilateral knee arthritis, on walker/cane at home fell down in bedroom on the left side. The patient lives alone and there is no weakness as well as some she tripped over the cord a friend and fell down. Left knee is more tender and swollen than her baseline swelling. Patient has moderate tricompartmental knee arthritis and gets steroid injection by Dr. Levy. 1. Fall with left knee contusion with swelling most probably prepatellar swelling/bursitis: The patient was seen by Dr. Levy. His impression is likely hemarthrosis as the patient was on Eliquis, meloxicam at home. The patient preferred steroid treatment with physical therapy and immobilization. Range of motion has improved. Eliquis and NSAIDs have already been discontinued. Discussed with the patient's daughter Nora and she is unclear about the indication of anticoagulant. It was started in the outside hospital probably in [facility] about 1 or 2 years ago. She denies history of A. fib, DVT/PE arterial thrombosis. Solu-Medrol changed to prednisone secondary to hyperglycemia. Plan continue PT OT and discharge to SNF. 2. Diabetes mellitus type 2 with hyperglycemia secondary to Solu-Medrol: Check Accu-Cheks before meals and at bedtime. The patient is refusing for insulin. Subsequently patient started on glipizide 500 mg twice daily and metformin and titrate the dose according to Accu-Cheks. 3. DVT prophylaxis: Patient is on Eliquis. On review of records, there is no good indication for Eliquis. Liquids discontinued. Bilateral SCDs 4. Patient is very hard of hearing and has poor discrimination score even on hearing aid. Need further outpatient audiometry and adjustment of hearing aid. 5. Debility, poor functional capacity and recurrent fall: As mentioned above. Laboratory Results 05/22/19 16:09: POC Glucose 254 H 05/22/19 21:48: POC Glucose 143 H 05/23/19 06:20: WBC 9.7, RBC 3.73 L, Hgb 10.7 L, Hct 33.8 L, MCV 90.6, MCH 28.7, MCHC 31.7 L, RDW 15.0 H, RDW Differential 49.2 H, Plt Count 185, MPV 9.9, Immature Gran % (Auto) 0.200, Neut % (Auto) 64.1, Lymph % (Auto) 25.7, [place] % (Auto) 9.0, Eos % (Auto) 0.8, Baso % (Auto) 0.2, Absolute Neuts (auto) 6.2, Absolute Lymphs (auto) 2.49, Total Counted Not Reportable 05/23/19 06:20: Sodium 142, Potassium 3.6, Chloride 106, Carbon Dioxide 28.0, Anion Gap 8, BUN 38 H, Creatinine 1.01, Estim Creat Clear Calc 38.82, Est GFR (MDRD) Af Amer 67, Est GFR (MDRD) Non-Af 56 L, BUN/Creatinine Ratio 37.6 H, Glucose 138 H, Calcium 9.0 05/23/19 06:37: POC Glucose 135 H 05/23/19 11:36: POC Glucose 205 H Code Visit Inpatient E&M: 78380 Subs Hosp L3
[2019-05-23 16:40] LABS: Bedside Glucose 271 mg/dL (70-110)
[2019-05-23] MEDS: glipiZIDE 5 MG Tablet 10 MG PO (17:40)
[2019-05-23 20:20] VITALS: BP 147/83; PULSE 69; RESP 16; TEMP 37.1; O2SAT 98
[2019-05-23 23:11] LABS: Bedside Glucose 190 mg/dL (70-110)
[2019-05-24] MEDS: traMADol 50 MG Tablet PO (05:34)
[2019-05-24] MEDS: Levothyroxine 100 MCG Tablet PO (05:34)
[2019-05-24 05:40] VITALS: BP 155/84; PULSE 59; RESP 16; TEMP 36.6; O2SAT 98
[2019-05-24 06:50] LABS: Bedside Glucose 127 mg/dL (70-110)
[2019-05-24] MEDS: glipiZIDE 5 MG Tablet 10 MG PO (07:53)
[2019-05-24] MEDS: Loratadine 10 MG Tablet PO (07:53)
[2019-05-24] MEDS: hydroCHLOROthiazide 12.5mg 12.5 MG PO (07:53)
[2019-05-24 07:54] VITALS: PULSE 64
[2019-05-24] MEDS: Cyanocobalamin 500 MCG Tablet PO (07:54)
[2019-05-24] MEDS: Multivitamins,Therapeutic Tablet 1 TABLET PO (07:54)
[2019-05-24] MEDS: Famotidine 20 MG Tablet PO (07:54)
[2019-05-24] MEDS: Metoprolol Tartrate 50 MG Tablet PO (07:54)
[2019-05-24] MEDS: metFORMIN HCl 500 MG Tablet PO (07:54)
[2019-05-24] MEDS: Multivitamin (Healthy Eyes) Capsule 1 CAP PO (07:55)
[2019-05-24] MEDS: Omega-3 Acid Ethyl Esters 1 GM Capsule PO (07:55)
[2019-05-24] MEDS: predniSONE 20 MG Tablet PO (07:55)
[2019-05-24] MEDS: Losartan Potassium 50 MG Tablet PO (07:55)
--- NOTE | 2019-05-24 10:12 | PCM.TXEXTCAR ---
- Diet 05/20/19 18:57 Diet: Calorie Controlled Food consistency:: Regular Liquid Consistency:: Regular/Thin Is pt able to select menu?: No Diet Comments: pt so LUCAS that she will not be able to communicate via phone How many daily calories?: 1800 calorie - Routine Orders/Code Status Suppository Type: Dulcolax 10mg Suppository Frequency: Daily PRN Routine Lab Work: BMP - in 1 week 05/30/19 Code Status: Full Code - Therapies Weight Bearing: Weight bearing as tolerated Extremity Affected:: Bilateral Lower Physical Therapy: Eval and Treat Occupational Therapy: Eval and Treat Speech Therapy: Eval and Treat - Allergies/Procedures Done in Hospital Allergies/Adverse Reactions: Allergies Penicillins Allergy (Severe, Verified 05/20/19 19:30) Unknown red dye Allergy (Severe, Verified 05/20/19 19:30) Unknown - Type of Care/Length of Stay Estimated LOS: Convalescent Care Less Than 30 days Type of Care Needed: Skilled Rehab Potential: Good Prognosis: Good - Additional Orders/Day of Discharge Day of Discharge: 05/24/19 - Follow Up Care Primary Care Physician: Efrain Corbin MD [Primary Care Provider] - Please follow up with your Primary Care Physician in: in 2 week Please Follow Up With: Maximus Levy MD When: in 2 weeks
--- NOTE | 2019-05-24 10:32 | CASEMGMT ---
No LW/POA on chart. LINDA spoke w/son and daughter in room, they state grandson Collins is POA([phone]) is POA and to call him, he will likely have the papers. SW called Collins, asked him about POA forms. He states he thinks pt's son Heladio(Collins's dad) is POA, but is not sure, says that the papers are at the estate planning attorney's office, [employer], and to call there. SW called estate planning attorney's office and left message. If the office calls back, LINDA will request LW/POA papers. HUMBERTO Kenney
[2019-05-24 10:47] VITALS: BP 137/77; PULSE 58; RESP 18; TEMP 36.7; O2SAT 94
--- NOTE | 2019-05-24 11:13 | PCM.DC.SUM ---
Discharge Date and Diagnosis Date of Admission: 05/20/19 Date of Discharge: 05/24/19 - Primary Discharge Diagnosis Active and Suspected Problems (Last Reviewed 05/20/19 @ 18:53 by Srini Ruvalcaba DO) Left knee pain (Acute) - Secondary Discharge Diagnosis Chronic Problems (Last Reviewed 05/20/19 @ 18:53 by Srini Ruvalcaba DO) Type 2 diabetes, controlled, with neuropathy (Chronic) No BG for review. Reports she had her labs done with Dr. Davis. A1c 7.2 which is good for her age and her being on meformin. No low BG readings reported. Cr and GFR normal. Is on asa daily BP controlled On maynor inhibitor On vit D On omega 3 Historically refused statin drugs Hospital Course and Treatment Summary of Care Provided: [] The patient is a 84 year old F with history of severe bilateral knee arthritis, on walker/cane at home fell down in bedroom on the left side. The patient lives alone and there is no weakness as well as some she tripped over the cord a friend and fell down. Left knee is more tender and swollen than her baseline swelling. Patient has moderate tricompartmental knee arthritis and gets steroid injection by Dr. Lvey. 1. Fall with left knee contusion with swelling most probably prepatellar swelling/bursitis: The patient was seen by Dr. Levy. His impression is likely hemarthrosis as the patient was on Eliquis, meloxicam at home. The patient preferred steroid treatment with physical therapy and immobilization. Range of motion has improved. Eliquis and NSAIDs have already been discontinued. Discussed with the patient's daughter Nora and she is unclear about the indication of anticoagulant. It was started in the outside hospital probably in [facility] about 1 or 2 years ago. She denies history of A. fib, DVT/PE arterial thrombosis. Solu-Medrol was changed to prednisone. Advised tapering dose of prednisone 20 mg daily for 5 more days changed to 10 mg once daily for 7 days and then stop follow-up Dr. Levy in 2 weeks. 2. Diabetes mellitus type 2 with hyperglycemia secondary to Solu-Medrol/prednisone: Check Accu-Cheks before meals and at bedtime. The patient is refusing for insulin. Subsequently patient started on glipizide 5 mg twice daily and metformin 500 mg and titrate the dose according to Accu-Cheks. Gradually increased to 10 mg twice daily to control the sugar. Patient is being discharged on prednisone 20 mg daily. Advised Accu-Chek before meals and at bedtime and titrate the dose of glipizide accordingly. 3. DVT prophylaxis: Patient is on Eliquis. On review of records, there is no good indication for Eliquis. Eliquis discontinued. Bilateral SCDs 4. Patient is very hard of hearing and has poor discrimination score even on hearing aid. Need further outpatient audiometry and adjustment of hearing aid. 5. Debility, poor functional capacity and recurrent fall: As mentioned above. Discharge medication reconciliation done. Discharge follow-up instructions completed. Discharge process discussed with the patient and her daughter, Ms. Melendez and all questions were answered to patient's satisfaction. Eliquis is discontinued. Patient is being discharged to SNF. Total time spent, exact 35 minutes on discharge meds reconciliation, examination, review of imaging and blood test and discussion with the patient on follow-up instructions. Subjective: Discussed with the patient's daughter and son present in the room. Patient left knee swelling is decreased. Patient participated in physical therapy. Blood sugars are controlled. Objective: General: Alert, Oriented x3, Cooperative HEENT: Atraumatic, PERRLA, EOMI, Normocephalic Neck: Supple, No JVD, Negative Carotid Bruits Lungs: Clear to auscultation, No rhonchi, No wheeze, No rales, Diminished Cardiovascular: Regular rate, Regular Rhythm, Normal S1, Normal S2, Murmur Systolic murmur present over aortic area. Abdomen: Bowel Sounds Present, Soft, Non Tender, Non-Distended Extremities: No edema, Capillary Refill Less than 3 Seconds Skin: No rashes, No breakdown Musculoskeletal: Arthritic Changes, Muscle Wasting, Bilateral knee arthritis. Tenderness and left knee swelling has decreased. Range of motion has improved. Neurological: Cranial nerves II-XII grossly intact Psych/Mental Status: Normal Affect, Appropriate - Physical Exam Vital Signs Temp Pulse Resp BP Pulse Ox 98.0 F 58 L 18 137/77 H 94 05/24/19 10:47 05/24/19 10:47 05/24/19 10:47 05/24/19 10:47 05/24/19 10:47 Oxygen Delivery Method Room Air Weight: 237 lb Body Mass Index (BMI) 38.2 Intake and Output for Last 24 Hours 05/22/19 05/23/19 05/24/19 23:59 23:59 23:59 Intake Total 610 / 810 400 / 700 300 / 300 Balance 610 / 810 400 / 700 300 / 300 POC Glucose 05/24/19 05/23/19 05/23/19 06:43 23:04 16:36 POC Glucose 127 H 190 H 271 H 05/23/19 11:36 POC Glucose 205 H Home Medications: Medications to take at Discharge coenzyme Q10 200 mg capsule 200 mg PO QDAY 11/18/17 glucosamine 500 mg-msm 100 mg-vit C 20 zo-gjhyh-dijl-primrose capsule 1 cap PO DAILY 11/18/17 metoprolol tartrate 50 mg tablet 50 mg PO QDAY 11/18/17 Cholecalciferol (Vitamin D3) [Vitamin D3] 1,000 unit PO DAILY 03/26/18 Cyanocobalamin (Vitamin B-12) [Vitamin B-12] 500 mcg PO DAILY 03/26/18 Loratadine [Claritin] 10 mg PO DAILY 03/26/18 [place]-3/Dha/Epa/Fish Oil [Fish Oil 1,400 mg Softgel] 1 ea PO DAILY 03/26/18 Potassium 99 mg PO DAILY 03/26/18 blood sugar diagnostic strips See Dose Instructions .ROUTE .MEDSUPPLY #120 ea 05/30/18 apixaban 2.5 mg tablet 2.5 mg PO BID 07/04/18 losartan 50 mg-hydrochlorothiazide 12.5 mg tablet 1 tab PO QDAY 07/04/18 multivitamin chewable tablet 1 tab PO QDAY 07/04/18 vitamins A,C,F-eltj-qapoge 14,320 unit-226 mg-200 unit capsule 1 cap PO QDAY cap 07/04/18 Levothyroxine Sodium [Synthroid] 100 mcg PO DAILY 05/20/19 Lorazepam [Ativan] 0.5 mg PO TID PRN PRN 05/20/19 Metformin HCl 500 mg PO DINNER 05/20/19 metFORMIN HCl [Glucophage] 1,500 mg PO BREAKFAST 05/20/19 Acetaminophen [Tylenol] 1,000 mg PO Q6H PRN PRN tab 05/24/19 Bisacodyl [Dulcolax] 5 mg PO DAILY PRN PRN #0 tab 05/24/19 Meloxicam 7.5 mg PO DAILY PRN PRN #0 05/24/19 Prednisone 10 mg PO UD #17 tab 05/24/19 glipiZIDE [Glucotrol] 10 mg PO BIDAC tab 05/24/19 traMADol [Ultram] 50 mg PO TID PRN PRN #14 tab 05/24/19 Following Prescrptions Were Given to Patient: Prednisone 10 mg PO UD #17 tab Prescription Printed traMADol [Ultram] 50 mg PO TID PRN PRN #14 tab PRN Reason: Moderate Pain (4-5/10) Prescription Printed Primary Care Physician: Efrain Corbin MD [Primary Care Provider] - Please follow up with your Primary Care Physician in: in 2 week Please Follow Up With: Maximus Levy MD When: in 2 weeks Medical Necessity - Tobacco Use Smoking Status: Never smoker Tobacco Use: Non-smoker Meaningful Use Info Meaningful Use Diagnoses (Choose all that apply): None applicable Code Visit Inpatient E&M: 19345 Disch Hosp
[2019-05-24 11:35] LABS: Bedside Glucose 251 mg/dL (70-110)
--- NOTE | 2019-05-24 11:47 | CASEMGMT ---
Social Work Note Marly HUMBERTO spoke with pt and pt's daughter Anabel regarding advanced directives and Marly was informed that pt's daughter Anabel is going to transport pt to [facility] today after lunch. LINDA faxed completed discharge paperwork to Mary at [facility] including transfer to extended care facility, signed medication list and any scripts. Original in SNF folder and copy on pt's chart. LINDA completed convalescent [facility] in [place]. Original in SNF folder and copy on pt's chart. LINDA placed a call to Mary at [facility] and left her a message informing her that pt will be discharged today after pt eats lunch and pt's daughter Anabel will be transporting pt. Plan: [facility] skilled today with family transporting via private vehicle Lola Campbell MSW, ADMINISTRATIVE SPECIALIST
--- NOTE | 2019-05-24 15:16 | NURSING ---
CHITO Louis updated that new med list was faxed to [phone] Andrews wishes to stop eliquis
== END 2019-05-24 12:33 | disposition skilled nursing facility (03) | DRG 605 ==
LOC: ED 16:43 → MS3 18:35
PROVIDERS: Emergency Provider Emergency Medicine; Family Provider Family Medicine; PCP Family Medicine; Visit Provider Internal Medicine
DX: S80.02XA Contusion of left knee, initial encounter (principal); M25.062 Hemarthrosis, left knee; W18.09XA Striking against other object with subsequent fall, initial encounter; Y93.01 Activity, walking, marching and hiking; Y92.003 Bedroom of unspecified non-institutional (private) residence as the place of occurrence of the external cause; M70.42 Prepatellar bursitis, left knee; R29.6 Repeated falls; M17.0 Bilateral primary osteoarthritis of knee; E11.40 Type 2 diabetes mellitus with diabetic neuropathy, unspecified; R53.81 Other malaise; H91.90 Unspecified hearing loss, unspecified ear; I10 Essential (primary) hypertension; E03.9 Hypothyroidism, unspecified; Z79.84 Long term (current) use of oral hypoglycemic drugs; Z79.82 Long term (current) use of aspirin; Z79.01 Long term (current) use of anticoagulants; Z79.899 Other long term (current) drug therapy
CPT/HCPCS: 36415; 73562; 80048; 82962; 85025; 97162; 97165; 97530; 97535; 99285; J7030; A4216

== ENCOUNTER → 2019-08-14 16:01 | Outpatient (CLI) | payer MEDICARE, OTHER, SELFPAY ==
[2019-05-20 18:59] VITALS: BMI 38.2
[2019-08-14 17:53] LABS: Anion Gap 8 (5-15); BUN 26 mg/dL (7-18); Calcium,Total 9.4 mg/dL (8.5-10.1); Chloride 106 mmol/L (98-107); Cholesterol 213 mg/dL (200); EST Glomerular Filtration Rate 64 mL/min (>60); Est Glom Filt Rate - Afr Amer 77 mL/min (>60); Free T3 2.1 pg/mL (2.18-3.98); Glucose 127 mg/dL (74-106); High Density Lipoprotein 93 mg/dL; Potassium 3.8 mmol/L (3.5-5.1); Sodium Level 141 mmol/L (136-145); T4 Total, Thyroxin 10.2 ug/dL (4.8-13.9); Thyroid Stim Hormone (TSH) 1.33 uIU/mL (0.358-3.74); Triglycerides 83 mg/dL; Very Low Density Lipoprotein 17 mg/dL (5-40)
[2019-08-14 18:19] LABS: Hemoglobin A1c 7.4 % (4.2-6.3)
== END ==
PROVIDERS: Family Provider Family Medicine; PCP Family Medicine; Visit Provider Family Medicine
DX: E03.9 Hypothyroidism, unspecified (principal); E11.40 Type 2 diabetes mellitus with diabetic neuropathy, unspecified
CPT/HCPCS: 36415; 80048; 80061; 83036; 84436; 84443; 84481

== ENCOUNTER → 2019-08-30 12:47 | Outpatient (CLI) | payer MEDICARE, OTHER, SELFPAY ==
[2019-05-20 18:59] VITALS: BMI 38.2
--- NOTE | 2019-08-30 12:53 | ECHOD_ITS ---
Reason For Study: aortic stenosis Procedure This was a 2D Doppler, Color Flow transthoracic echocardiogram. Exam performed in department. Left Ventricle Moderately dilated left ventricle. The estimated ejection fraction is 60 %. Unable to assess diastolic dysfunction due to arrhythmia. No regional wall motion abnormalities noted. Right Ventricle Mildly dilated right ventricle. Normal systolic function. Atria The left atrium is severely enlarged. Normal right atrium. Normal atrial septum. Mitral Valve Mild diffuse mitral valve thickening. Mild mitral annular calcification extending into the posterior leaflet. Mild (1+) mitral valve insufficiency. Tricuspid Valve Normal tricuspid valve. Moderate (2+) tricuspid valve insufficiency. Right ventricular systolic pressure estimated to be 64 mmHg. Severe pulmonary hypertension. Aortic Valve Trisinus/trileaflet aortic valve. Severe focal aortic valve thickening. Moderate restriction of the aortic valve. Moderate aortic stenosis. Peak aortic valve gradient 45 mmHg. Mean aortic valve gradient 30 mmHg. Calculated aortic valve area (continuity equation) is 1.2 cm2. Trivial aortic valve insufficiency. Pulmonic Valve Normal pulmonic valve. Trivial pulmonic valve insufficiency. Great Vessels Mild atherosclerosis of the ascending aorta. Mild atherosclerosis of the aortic arch. The inferior vena cava is dilated. No collapse of the inferior vena cava. Pericardium/Pleural No pericardial effusion. MMode/2D Measurements & Calculations LVIDd: 5.6 cm IVSd: 1.0 cm LVOT diam: 2.2 cm LVIDs: 3.9 cm LVPWd: 1.0 cm LVOT area: 3.8 cm2 RVDd: 3.6 cm FS: 29.7 % Ao root diam: 3.9 cm LAV(MOD-bp): 122.3 ml Aortic Valve Planimetry: 1.2 cm2 LAV(MOD-bp) Indexed: 55.6 ml/m2 LAV(MOD-sp2): 115.6 ml LAV(MOD-sp4): 125.8 ml LA dimension(2D): 5.1 cm LA A4 area: 32.0 cm2 RA A4 area: 21.3 cm2 Doppler Measurements & Calculations MV E max lyn: 118.7 cm/sec Ao V2 max: 341.3 cm/sec LV V1 max: 115.0 cm/sec Ao max P.0 mmHg LV V1 max P.3 mmHg Ao V2 mean: 259.7 cm/sec LV V1 mean P.0 mmHg Ao mean P.1 mmHg LV V1 mean: 83.1 cm/sec Ao V2 VTI: 73.0 cm LV V1 VTI: 21.1 cm ABRAHAM(I,D): 1.1 cm2 ABRAHAM(V,D): 1.3 cm2 SV(LVOT): 80.9 ml PA V2 max: 111.1 cm/sec TR max lyn: 331.3 cm/sec TR max P.1 mmHg Interpretation Summary Moderately dilated left ventricle. The estimated ejection fraction is 60 %. Unable to assess diastolic dysfunction due to arrhythmia. Mildly dilated right ventricle. The left atrium is severely enlarged. Mild (1+) mitral valve insufficiency. Moderate (2+) tricuspid valve insufficiency. Right ventricular systolic pressure estimated to be 64 mmHg. Severe pulmonary hypertension. Moderate to severe restriction of the aortic valve. Moderate to severe aortic stenosis. Peak aortic valve gradient 45 mmHg. Mean aortic valve gradient 30 mmHg. Calculated aortic valve area (continuity equation) is 1.2 cm2. Trivial aortic valve insufficiency. Compared to echo report dated 10/04/2007, LV function has remained the same, but pt now has moderate to severe aortic stenosis superimposed on severe pulmonary HTN. Pt also appears to be in atrial fibrillation. Ordering Physician: Ludy Sahu Referring Physician: Efrain Corbin Performed By: Lolly Sneed RDCS, RVT
== END ==
PROVIDERS: Family Provider Family Medicine; PCP Family Medicine; Referring Provider Nurse Practitioner Family; Visit Provider Nurse Practitioner Family
DX: I35.0 Nonrheumatic aortic (valve) stenosis (principal)
CPT/HCPCS: 93306

== ENCOUNTER 2019-11-10 10:22 | Emergency (ER) | payer MEDICARE, OTHER, SELFPAY ==
[2019-05-20 18:59] VITALS: BMI 38.2
[2019-11-10 10:24] VITALS: BP 108/63; PULSE 92; RESP 18; TEMP 36.6; O2SAT 97; BMI 38.7
--- NOTE | 2019-11-10 10:42 | ED.VIS.GEN ---
History of Present Illness Chief Complaint: Nosebleed Informant: Patient, Family Onset: Today Context: Sudden Onset - spontaneous Timing: Continuous Quality: brisk oozing Location: right naris only Current Severity: gone Maximum Severity: Severe Worsened by: nothing in particular Relieved by: holding pressure Associated Symptoms: congestion/rhinorrhea causing her to blow her nose a lot last couple days Narrative: Patient has been on Eliquis for chronic atrial fibrillation. She has not had a nosebleed in 3 years or so, had a minor one yesterday and a major one today that now is better with holding pressure with a nasal clip. She denies any systemic symptoms of anemia. She has had some nasal congestion and blowing her nose a lot lately but not right before the bleeding started. Family member states there was a significant amount of bleeding at home. - Past Medical History (1) Chronic atrial fibrillation Status: Chronic (2) Type 2 diabetes, controlled, with neuropathy Status: Chronic Comment: No BG for review. Reports she had her labs done with Dr. Davis. A1c 7.2 which is good for her age and her being on meformin. No low BG readings reported. Cr and GFR normal. Is on asa daily BP controlled On maynor inhibitor On vit D On omega 3 Historically refused statin drugs Past Medical History - Allergies and Home Meds Allergies/Adverse Reactions: Allergies Penicillins Allergy (Severe, Verified 11/10/19 10:23) Unknown red dye Allergy (Severe, Verified 11/10/19 10:23) Unknown Primary Care Physician: Efrain Corbin MD [Primary Care Provider] - Lives: With Family Smoking Status: Never smoker Review of Systems ROS: Unable to Obtain - Limited eval due to extremely hard of hearing with hearing aids in place ENT: Reports: Rhinorrhea - And congestion. Denies: Bilateral ear pain, Sore throat Cardiovascular: Denies: Chest pain, Palpitations Respiratory: Denies: Dyspnea, Orthopnea Gastrointestinal: Denies: Nausea, Vomiting, Diarrhea, Hematochezia Hematologic: Reports: Easy bruising, Easy bleeding. Denies: Lymphadenopathy Physical Exam Vital Signs/Narrative: Vital Signs Temp Pulse Resp BP Pulse Ox 11/10/19 10:24 97.8 F 92 18 108/63 97 Inital Vital Signs reviewed: Yes General: Well nourished, Well developed, Obese, No Acute Distress Head: Normocephalic, Atraumatic Eyes: Perrl, EOMI ENT: Moist mucous membranes, - - No active nasal bleeding. Small amount of blood in posterior oropharynx, no active bleeding. On the right, she appears to have a nasal septal perforation. However on the contralateral side, there is no communication. Bleeding appears to have come from the area of the perforation as there is some fresh clot there on the right. Neck: Supple, Nontender Respiratory: No distress Neurological: Alert, Oriented x3, Cranial nerves II-XII grossly intact, Normal Strength, Normal Sensation, Normal Gait Psychological: Normal affect, Normal Mood Diagnostic/Tx/Re-eval Laboratory Tests 11/10/19 Range/Units 10:50 WBC 7.3 (4.4-11.0) K/mm3 RBC 3.93 L (4.2-5.4) M/mm3 Hgb 11.2 L (12.0-15.0) g/dL Hct 36.1 L (37-47) % MCV 91.9 (81-99) fL MCH 28.5 (27.0-32.0) pg MCHC 31.0 L (32-36) g/dL RDW Std Deviation 46.9 H (35.1-43.9) fl RDW Coeff of Yane 14.0 (11.6-14.6) % Plt Count 254 (150-450) K/mm3 MPV 9.3 (6.2-12.0) fl - Medical Decision Making Blood counts are stable, see the procedure note for treatment. Discharged in stable condition. Discussed reasons to return. Procedures Procedure(s): Nasal chemical cautery/epistaxis treatment --the patient blew large clot out of her nose, then I inspected her nose and it was not actively bleeding but there is evidence of recent bleeding on the right. In reality, her septum is nonperforated which was not visible until we were able to clear everything out on reevaluation after placing a pledget with Tur[place] solution. It was an eroded area in between chronically distorted tissue on her septum. There is no perforation. There is a punctate area that appears to be the source of bleeding. It was lightly cauterized with silver nitrate. No perforation was cause. She remained bleeding-free. ED Disposition - Plan for ED Patient: Disposition: Home or Assisted Living Diagnosis: Acute anterior epistaxis Instructions: Nosebleed Referrals: Efrain Corbin MD [Primary Care Provider] - As Needed (Or return to ER)
[2019-11-10] MEDS: Mixture 30 ML Bottle 5 ML TOPICAL (10:54)
[2019-11-10 11:01] LABS: Hematocrit 36.1 % (37-47); Hemoglobin 11.2 g/dL (12.0-15.0); Mean Corpuscular Hgb 28.5 pg (27.0-32.0); Mean Corpuscular Volume 91.9 fL (81-99); Mean Platelet Vol. 9.3 fl (6.2-12.0); Platelet Count 254 K/mm3 (150-450); RBC Distribution Width SD 46.9 fl (35.1-43.9); Red Blood Count 3.93 M/mm3 (4.2-5.4); White Blood Count 7.3 K/mm3 (4.4-11.0)
[2019-11-10 13:18] VITALS: BP 130/63; PULSE 85; RESP 18; TEMP 36.8; O2SAT 93
[2019-11-10] MEDS: Silver Nitrate (BKC) 1 EACH TOPICAL (13:27)
== END 2019-11-10 13:29 | disposition home or self-care (01) ==
PROVIDERS: Emergency Provider Emergency Medicine; Family Provider Family Medicine; PCP Family Medicine
DX: R04.0 Epistaxis (principal); I48.20 Chronic atrial fibrillation, unspecified; E11.40 Type 2 diabetes mellitus with diabetic neuropathy, unspecified; E66.9 Obesity, unspecified; Z68.38 Body mass index [BMI] 38.0-38.9, adult; Z79.01 Long term (current) use of anticoagulants; Z79.82 Long term (current) use of aspirin; Z79.84 Long term (current) use of oral hypoglycemic drugs; Z79.899 Other long term (current) drug therapy
CPT/HCPCS: 30901; 36415; 85027; 99282

== ENCOUNTER → 2019-12-07 12:03 | Outpatient (CLI) | payer MEDICARE, OTHER, SELFPAY ==
[2019-11-10 10:24] VITALS: BMI 38.7
[2019-12-07 14:16] LABS: Anion Gap 6 (5-15); BUN 23 mg/dL (7-18); BUN/Creat Ratio 24.8 RATIO (10-20); Calcium,Total 9.9 mg/dL (8.5-10.1); Chloride 105 mmol/L (98-107); Cholesterol 233 mg/dL (200); Creatinine, Serum 0.93 mg/dL (0.55-1.02); EST Glomerular Filtration Rate 61 mL/min (>60); Est Glom Filt Rate - Afr Amer 74 mL/min (>60); Glucose 137 mg/dL (74-106); High Density Lipoprotein 88 mg/dL; Potassium 3.8 mmol/L (3.5-5.1); Sodium Level 141 mmol/L (136-145); Triglycerides 75 mg/dL; Very Low Density Lipoprotein 15 mg/dL (5-40)
[2019-12-07 14:23] LABS: Hemoglobin A1c 7.6 % (4.2-6.3)
== END ==
PROVIDERS: PCP Family Medicine; Referring Provider Family Medicine; Visit Provider Family Medicine
DX: E11.40 Type 2 diabetes mellitus with diabetic neuropathy, unspecified (principal)
CPT/HCPCS: 36415; 80048; 80061; 83036

== ENCOUNTER → 2020-12-18 15:34 | Outpatient (CLI) | payer MEDICARE, OTHER, SELFPAY ==
[2020-12-18 18:53] LABS: Anion Gap 8 (5-15); BUN 29 mg/dL (7-18); BUN/Creat Ratio 22.7 RATIO (10-20); Calcium,Total 9.9 mg/dL (8.5-10.1); Chloride 104 mmol/L (98-107); Cholesterol 215 mg/dL (200); Creatinine, Serum 1.28 mg/dL (0.55-1.02); EST Glomerular Filtration Rate 42 mL/min (>60); Est Glom Filt Rate - Afr Amer 51 mL/min (>60); Glucose 145 mg/dL (74-106); High Density Lipoprotein 80 mg/dL; Potassium 3.9 mmol/L (3.5-5.1); Sodium Level 141 mmol/L (136-145); T4 Free Direct 1.29 ng/dL (0.76-1.46); Thyroid Stim Hormone (TSH) 0.87 uIU/mL (0.358-3.74); Triglycerides 92 mg/dL; Very Low Density Lipoprotein 18 mg/dL (5-40)
[2020-12-19 14:33] LABS: Hemoglobin A1c 6.6 % (3.8-5.6)
== END ==
PROVIDERS: PCP Family Medicine; Referring Provider Family Medicine; Visit Provider Family Medicine
DX: E11.40 Type 2 diabetes mellitus with diabetic neuropathy, unspecified (principal); E03.9 Hypothyroidism, unspecified
CPT/HCPCS: 36415; 80048; 80061; 83036; 84439; 84443; 84481

== ENCOUNTER 2021-06-25 11:24 | Emergency (ER) | payer MEDICARE, OTHER, SELFPAY ==
[2021-04-02 15:13] VITALS: BMI 32.5
[2021-06-25 11:25] VITALS: BP 180/106; PULSE 72; RESP 18; TEMP 36.6; O2SAT 98; BMI 32.4
[2021-06-25 11:27] VITALS: BP 180/106; PULSE 72; RESP 18; TEMP 36.6; O2SAT 98
--- NOTE | 2021-06-25 11:43 | EDS_ITS ---
HPI HPI - GI History of Present Illness Chief Complaint: GI Bleed Detail of Chief Complaint: Concerned about black stool for 2 months Informant: patient and family Narrative Narrative: Patient presents to the emergency department with her daughter stating that she has had black stool for [address] Corbin's office who referred her to the emergency department. Patient is on Eliquis for history of chronic A. fib. Patient has no complaints. Patient states she feels great. He does not have history of bleeding ulcer. Patient states that she drank some pop a few months ago and it gave her diarrhea so she took Pepto- Bismol. Patient states that a couple weeks ago she started having more loose stool so she took more Pepto-Bismol. Patient does not take iron. Patient denies abdominal pain. Prior similar symptoms: No PFSH PFSH Medical History Cataracts, bilateral Essential (primary) hypertension Gallstones Hyperlipidemia Hypothyroid IBS (irritable bowel syndrome) Longstanding persistent atrial fibrillation Non-ischemic cardiomyopathy Non-rheumatic tricuspid valve insufficiency Nonrheumatic aortic (valve) stenosis Obesity Osteoarthritis Seasonal allergies Secondary pulmonary arterial hypertension Type 2 diabetes, controlled, with neuropathy Home Medications coenzyme Q10 200 mg capsule 200 mg PO QDAY 11/18/17 [History Last Taken 05/19/19 08:00 200 mg] glucosamine 500 mg-msm 100 mg-vit C 20 bp-swtkz-rhqj-primrose capsule 1 cap PO DAILY 11/18/17 [History Last Taken Unknown] cholecalciferol (vitamin D3) 1,000 unit PO DAILY 03/26/18 [History Last Taken 05/16/19 08:00 1,000 unit] cyanocobalamin (vitamin B-12) 500 mcg PO DAILY 03/26/18 [History Last Taken 05/11/19 08:00 500 mcg] potassium 99 mg PO DAILY 03/26/18 [History Last Taken Unknown] blood sugar diagnostic #120 ea 05/30/18 [Rx Last Taken Unknown] losartan 50 mg-hydrochlorothiazide 12.5 mg tablet 1 tab PO QDAY 07/04/18 [History Last Taken Unknown] multivitamin 1 tab PO QDAY 07/04/18 [History Last Taken 05/09/19 08:00 1 tab] levothyroxine 100 mcg PO DAILY 05/20/19 [History Last Taken 05/20/19 06:00 100 mcg] lorazepam 0.5 mg PO TID PRN PRN 05/20/19 [History Last Taken Unknown] metformin 1,500 mg PO BREAKFAST 05/20/19 [History Last Taken 05/20/19 08:00 1500 mg] metformin 500 mg PO DINNER 05/20/19 [History Last Taken Unknown] bisacodyl 5 mg PO DAILY PRN PRN #0 tab 05/24/19 [Rx Last Taken Unknown] tramadol 50 mg PO TID PRN PRN #14 tab 05/24/19 [Rx Last Taken Unknown] apixaban 2.5 mg tablet 2.5 mg PO BID 03/17/21 [History Last Taken Unknown] furosemide 40 mg tablet 40 mg PO DAILY #90 tab 04/02/21 [Rx Last Taken Unknown] metoprolol succinate 25 mg tablet,extended release 24 hr 25 mg PO DAILY tab 04/02/21 [History Last Taken Unknown] Allergy/AdvReac Type Severity Reaction Status Date / Time Penicillins Allergy Severe Unknown Verified 06/25/21 11:28 red dye Allergy Severe Unknown Verified 06/25/21 11:28 Family History Grandmother Cancer CVA (cerebral vascular accident) Mother Diabetes Heart disease Father Heart disease Surgical History History of total abdominal hysterectomy Hx of cholecystectomy Social History Smoking Status: Never smoker second hand exposure: No alcohol intake: never substance use type: does not use ROS ROS ED Constitutional Constitutional ED: Reports systems reviewed and no addt'l complaints, except as documented; Denies body ache(s), change in weight or chills Eyes Eyes: Denies acute decrease in peripheral vision, change in vision, double vision or loss of vision ENT ENT ED: Reports none; Denies ear pain, lip swelling, loss taste/smell, neck pain, otalgia or sore throat Cardiovascular Cardiovascular: Reports none; Denies abdominal pain, chest pain with activity, leg edema, lightheadedness, palpitations, rapid heart rate or syncope Respiratory/Chest Respiratory/Chest: Reports none; Denies change in mental status, dry cough, dyspnea, hemoptysis, shortness of breath at rest or shortness of breath with exertion Gastrointestinal Gastrointestinal: Reports none and melena; Denies abdominal pain, change in stool character, diarrhea, hematemesis, hematochezia, rectal bleeding or vomiting Genitourinary Genitourinary ED: Reports none; Denies abdominal discomfort, anuria, dysuria, genital pain or polyuria Musculoskeletal Musculoskeletal: Reports none; Denies arthralgias, back pain, difficulty walking, extremity pain, muscle weakness or myalgias Integumentary Reports none; Denies abscess or rash Neurologic Neurologic: Reports none; Denies abnormal gait, confusion, focal weakness, frequent falls, headache(s), loss of vision, numbness, paresthesias, radicular pain, vertigo or weakness Psychiatric Psychiatric: Reports systems reviewed and no addt'l complaints, except as documented and none; Denies behavioral changes, confusion, difficulty concentrating, hallucinations, suicidal ideation, tactile hallucinations or visual hallucinations Endocrine Endocrinology: Denies none, cold intolerance, excessive sweating, fatigue or heat intolerance Hematologic/Lymphatic Hematologic/Lymphatic: Reports none; Denies anemia, easy bleeding or easy bruising Allergic/Immunologic Allergic/Immunologic ED: Denies as per HPI, none, lip swelling, mouth swelling, throat swelling, tongue swelling or hives EXAM Physical Exam Const Vital Signs: 06/25/21 11:25 06/25/21 11:27 Temperature 98 F 98 F Temperature Source Temporal Temporal Pulse Rate 72 72 Respiratory Rate 18 18 Blood Pressure 180/106 H 180/106 H Blood Pressure Mean 130 130 Pulse Ox 98 98 Oxygen Delivery Method Room Air Room Air Positive well nourished and well developed General Appearance ED: well developed and NAD HEENT Reports TM's clear and moist mucous membranes normocephalic and atraumatic; Negative for trauma or tenderness Tympanic Membrane ED: Yes TM's clear Eyes PERRL and EOMs intact bilaterally General Eye ED: Negative for pale conjunctiva or scleral icterus Neck no lymphadenopathy, supple and no JVD General: Negative for tenderness Chest Wall inspection of chest normal and palpation of chest normal Chest: Negative for tenderness Resp normal respiratory effort and clear to auscultation bilaterally Effort and Inspection: Negative for respiratory distress or pain with movement Auscultation: Negative for rhonchi, wheezes or diminished lung sounds Cardio regular rate, regular rhythm, S1 normal heart sound, S2 normal heart sound and no murmurs Peripheral Pulses: pulses 2+ throughout GI normal to inspection, nondistended, normoactive bowel sounds, soft to palpation, non-tender, non-distended and no masses GI Narrative: On rectal exam-patient has brown stool. No rectal masses noted. No fissures noted. Back/Spine no CVA tenderness and no thoracic nor lumbar tenderness Extremity normal to inspection General Extremety ED: Negative for edema General Extremity: Negative for edema Neuro oriented x3, CN's II-XII intact bilaterally, no sensory deficits noted and gait normal Sensorium / Orientation: awake, alert, oriented to person, oriented to place and oriented to time Motor Exam: strength 5/5 throughout and strength abnormal Psych mental status grossly normal Skin no rashes or lesions noted and no wounds MDM MDM MDM Narrative Medical decision making narrative: Patient had brown stool on rectal exam however her Hemoccult was positive. Her hemoglobin today was 10.7 in the last one half to compare to from 2019 was just over 11. Patient's BUN is only 20 and is chronically slightly elevated. I do not feel patient has a acute GI bleed that would need further intervention. I will discuss case with patient's primary care physician to arrange close follow-up. Patient feels well otherwise. Advised to return if black stool, lightheadedness, abdominal pain, hematemesis, or condition should worsen anyway. Lab Data Labs: Laboratory Results - last 24 hr 06/25/21 06/25/21 11:55 11:55 WBC 6.5 RBC 3.72 L Hgb 10.7 L Hct 35.1 L MCV 94.4 MCH 28.8 MCHC 30.5 L RDW Std Deviation 53.4 H RDW Coeff of Yane 15.5 H Plt Count 217 MPV 9.9 Immature Gran % (Auto) 0.500 Neut % (Auto) 72.0 H Lymph % (Auto) 17.5 L Woodward % (Auto) 7.4 Eos % (Auto) 2.0 Baso % (Auto) 0.6 Absolute Neuts (auto) 4.7 Absolute Lymphs (auto) 1.13 Nucleated RBC % 0 Sodium 141 Potassium 3.8 Chloride 105 Carbon Dioxide 28.0 Anion Gap 8 BUN 20 H Creatinine 0.92 Estim Creat Clear Calc 39.50 Est GFR (MDRD) Af Amer 74 Est GFR (MDRD) Non-Af 62 BUN/Creatinine Ratio 21.7 H Glucose 160 H Calcium 9.6 Discharge Plan Triage Chief Complaint: GI Bleed ED Provider: Stalin Bridges Dx/Rx/DC Orders Clinical Impression: GI bleed Instructions: ED Lower GI Bleeding (Stable), ED Upper GI Bleeding (Stable) Prescriptions: No Action [id number] [Joint Support Complex] 180-525-12-0.5 mg capsule 1 cap PO DAILY RF: 0 coenzyme Q10 [Co Q-10] 200 mg capsule 200 mg PO QDAY RF: 0 multivitamin chewable tablet tablet,chewable 1 tab PO QDAY RF: 0 losartan-hydrochlorothiazide 50-12.5 mg tablet 1 tab PO QDAY RF: 0 Eliquis 2.5 mg tablet 2.5 mg PO BID RF: 0 metoprolol succinate 25 mg tablet extended release 24 hr 25 mg PO DAILY RF: 0 furosemide [Lasix] 40 mg tablet 40 mg PO DAILY Qty: 90 RF: 2 potassium 99 MG tablet 99 mg PO DAILY RF: 0 cyanocobalamin (vitamin B-12) 500 MCG tablet 500 mcg PO DAILY RF: 0 cholecalciferol (vitamin D3) 1,000 UNIT capsule 1,000 unit PO DAILY RF: 0 levothyroxine 100 MCG tablet 100 mcg PO DAILY RF: 0 metformin 500 MG tablet 500 mg PO DINNER RF: 0 lorazepam 0.5 MG tablet 0.5 mg PO TID PRN PRN (Reason: Anxiety) RF: 0 metformin 1,000 MG tablet 1,500 mg PO BREAKFAST RF: 0 tramadol 50 MG tablet 50 mg PO TID PRN PRN (Reason: Moderate Pain (4-5/10)) Qty: 14 RF: 0 bisacodyl 5 MG tablet 5 mg PO DAILY PRN PRN (Reason: Constipation) Qty: 0 RF: 0 (DME) blood sugar diagnostic [Contour Next Test Strips] strip See Dose Instructions .ROUTE .MEDSUPPLY Qty: 120 RF: 11 Primary Care Provider: Efrain Corbin Referrals: Efrain Corbin MD [Primary Care Provider] - 2 Days Disposition Disposition: Home, Self Care
[2021-06-25 12:06] LABS: Absolute Lymphocyte Count 1.13 X10^3/uL (0.83-4.51); Absolute Neutrophil Count 4.7 X10^3/uL (2.0-7.7); Basophil# 0.04 X10^3/uL; Basophil% 0.6 % (0-1); Eosinophil# 0.13 X10^3/uL; Hematocrit 35.1 % (37-47); Hemoglobin 10.7 g/dL (12.0-15.0); Lymphocyte # 1.13 X10^3/ul (0.83-4.51); Lymphocyte % 17.5 % (19-41); Mean Corp Hgb Conc 30.5 g/dL (32-36); Mean Corpuscular Hgb 28.8 pg (27.0-32.0); Mean Corpuscular Volume 94.4 fL (81-99); Mean Platelet Vol. 9.9 fl (6.2-12.0); Monocyte# 0.48 X10^3/uL; Monocyte% 7.4 % (0-10); NRBC Flagged by Analyzer 0 % (0-5); Neutrophil # 4.66 X10^3/uL (2.7-7.7); Platelet Count 217 K/mm3 (150-450); RBC Distribution Width CV 15.5 % (11.6-14.6); RBC Distribution Width SD 53.4 fl (35.1-43.9); Red Blood Count 3.72 M/mm3 (4.2-5.4); White Blood Count 6.5 K/mm3 (4.4-11.0)
[2021-06-25 12:14] LABS: Anion Gap 8 (5-15); BUN 20 mg/dL (7-18); BUN/Creat Ratio 21.7 RATIO (10-20); Calcium,Total 9.6 mg/dL (8.5-10.1); Chloride 105 mmol/L (98-107); Creatinine, Serum 0.92 mg/dL (0.55-1.02); EST Glomerular Filtration Rate 62 mL/min (>60); Est Glom Filt Rate - Afr Amer 74 mL/min (>60); Glucose 160 mg/dL (74-106); Potassium 3.8 mmol/L (3.5-5.1); Sodium Level 141 mmol/L (136-145)
[2021-06-25 13:29] VITALS: BP 174/74; PULSE 70; RESP 18; O2SAT 96
== END 2021-06-25 13:30 | disposition home or self-care (01) ==
PROVIDERS: Emergency Provider Emergency Medicine; PCP Family Medicine
DX: K92.2 Gastrointestinal hemorrhage, unspecified (principal); I10 Essential (primary) hypertension; I27.21 Secondary pulmonary arterial hypertension; I48.11 Longstanding persistent atrial fibrillation; I35.0 Nonrheumatic aortic (valve) stenosis; E11.40 Type 2 diabetes mellitus with diabetic neuropathy, unspecified; E78.5 Hyperlipidemia, unspecified; E03.9 Hypothyroidism, unspecified; E66.9 Obesity, unspecified; M19.90 Unspecified osteoarthritis, unspecified site; Z68.32 Body mass index [BMI] 32.0-32.9, adult; Z79.01 Long term (current) use of anticoagulants; Z79.84 Long term (current) use of oral hypoglycemic drugs; Z79.899 Other long term (current) drug therapy
CPT/HCPCS: 80048; 82274; 85025; 99283; A4216

== ENCOUNTER → 2021-06-27 11:28 | Outpatient (CLI) | payer MEDICARE, OTHER, SELFPAY ==
[2021-06-25 11:25] VITALS: BMI 32.4
[2021-06-27 15:36] LABS: Hematocrit 35.8 % (37-47); Hemoglobin 10.9 g/dL (12.0-15.0); Mean Corp Hgb Conc 30.4 g/dL (32-36); Mean Corpuscular Hgb 28.9 pg (27.0-32.0); Mean Platelet Vol. 10.5 fl (6.2-12.0); Platelet Count 255 K/mm3 (150-450); RBC Distribution Width CV 15.5 % (11.6-14.6); Red Blood Count 3.77 M/mm3 (4.2-5.4); White Blood Count 7.6 K/mm3 (4.4-11.0)
== END ==
PROVIDERS: PCP Family Medicine; Visit Provider Family Medicine
DX: K92.2 Gastrointestinal hemorrhage, unspecified (principal)
CPT/HCPCS: 36415; 85027

== ENCOUNTER → 2021-07-25 11:43 | Outpatient (CLI) | payer MEDICARE, OTHER, SELFPAY ==
[2021-07-25 15:16] LABS: Cholesterol 190 mg/dL (200); High Density Lipoprotein 64 mg/dL; T4 Free Direct 1.16 ng/dL (0.76-1.46); Thyroid Stim Hormone (TSH) 1.79 uIU/mL (0.358-3.74); Triglycerides 87 mg/dL; Very Low Density Lipoprotein 17 mg/dL (5-40)
== END ==
PROVIDERS: PCP Family Medicine; Referring Provider Family Medicine; Visit Provider Family Medicine
DX: E11.40 Type 2 diabetes mellitus with diabetic neuropathy, unspecified (principal); E03.9 Hypothyroidism, unspecified
CPT/HCPCS: 36415; 80061; 84439; 84443; 84481

== ENCOUNTER 2021-09-09 14:11 | Observation (INO) | payer MEDICARE, OTHER, SELFPAY ==
[2021-09-09 14:13] VITALS: BP 185/76; PULSE 64; RESP 18; TEMP 36.6; O2SAT 97; BMI 27.4
--- NOTE | 2021-09-09 14:49 | RAD_ITS ---
STUDY: X-RAY - LEFT KNEE REASON FOR EXAM: Female, 86 years old. Left knee pain TECHNIQUE: 4 view(s) of the knee. COMPARISON: Comparison is made with prior study dated 05/20/2019. FINDINGS: Normal visualized distal femur. Normal visualized proximal tibia and fibula. Normal proximal tibiofibular articulation. There is severe degenerative arthrosis of the medial femorotibial compartment with severe joint space narrowing. There is severe degenerative arthrosis of the lateral femorotibial compartment with severe joint space narrowing. There is severe degenerative arthrosis of the patellofemoral articulation. Moderate size joint effusion. Vascular calcification. RAD/Knee 4 or More Views IMPRESSION: Moderate in degree of the 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 Electronically Signed: Shantanu Newell MD at 15:09 EDT , Service support ,
--- NOTE | 2021-09-09 16:11 | CT_ITS ---
STUDY: CT BRAIN WITHOUT CONTRAST REASON FOR EXAM: Female, 86 years old. Headache after a fall, patient on blood thinner RADIATION DOSAGE (If Supplied By Facility): CTDIvol = ( 44.99 ) mGy, DLP = ( 796.11 ) mGycm TECHNIQUE: Transaxial CT imaging of the brain was performed without administration of intravenous contrast material. Individualized dose optimization techniques were used for this CT. COMPARISON: No relevant priors. FINDINGS: There is a likely benign expansile lesion in the left frontal/temporal region. This is not related to patient''s fall but may represent sequela from previous trauma or inflammation. There is mild cerebral atrophy with widening of the extra-axial spaces and ventricular dilatation. There are areas of decreased attenuation within the white matter tracts of the supratentorial brain, consistent with microvascular disease changes. Normal basal ganglia and thalami. Normal brainstem. There is mild cerebellar atrophy. There is no intracranial hemorrhage. There are no findings of an acute ischemic infarction. Normal visualized paranasal sinuses. CT/Brain/Head without Contrast IMPRESSION: Chronic involutional changes of the brain. No acute hemorrhage Expansile lesion in the left frontal/temporal region with subtle scalloping. I suspect this is a benign bony lesion, not related to patient''s fall. Electronically Signed: Prince Saunders MD at 17:17 EDT , Service support ,
--- NOTE | 2021-09-09 16:11 | RAD_ITS ---
STUDY: X-RAY - PELVIS REASON FOR EXAM: Female, 86 years old. Pain after a fall TECHNIQUE: Two views of the pelvis were obtained. COMPARISON: None. FINDINGS: There is a non-specific bowel gas pattern. Normal visualized soft tissue structures. There is diffuse demineralization of the osseous structures. There is narrowing with cortical sclerosis and osteophyte formation of the sacroiliac joint consistent with degenerative osteoarthritic changes. Normal visualized bilateral superior and inferior pubic rami. Normal pubic symphysis. Normal ischial tuberosities. Normal visualized right femoral head. Normal right acetabulum. There is moderate articular joint space narrowing of the right hip. Normal visualized left femoral head. Normal left acetabulum. There is moderate articular joint space narrowing of the left hip. RAD/Pelvis 1 or 2 Views IMPRESSION: Age consistent hip and SI joint arthrosis, no demonstrated fracture or suspicious osseous lesion. However, hip and pelvic fractures in patients of this age can be subtle, if there is strong clinical suspicion of a fracture, recommend further evaluation with CT Electronically Signed: Prince Saunders MD at 17:11 EDT , Service support ,
--- NOTE | 2021-09-09 16:35 | RAD_ITS ---
STUDY: X-RAY - LEFT FOOT CLINICAL: Female, 86 years old. Pain and swelling TECHNIQUE: 4 view(s) of the foot. COMPARISON: None. FINDINGS: Bones are diffusely demineralized. Degenerative arthrosis noted at all visualized joint spaces without evidence of an acute fracture. There is a lateral drift of the MTP joints. No demonstrated suspicious soft tissue swelling or foreign body. There are dense vascular calcifications, lateral view suggests pes planus. RAD/Foot min 3 Views IMPRESSION: Diffuse osteopenia with polyarticular arthrosis, no demonstrated fracture Vascular calcifications Pes planus Electronically Signed: Prince Saunders MD at 17:10 EDT , Service support ,
[2021-09-09] MEDS: HYDROcodone Bitartrate/Apap 5/325 Tablet PO (17:04)
[2021-09-09 17:05] VITALS: BP 180/89; PULSE 63; RESP 15; O2SAT 97
--- NOTE | 2021-09-09 19:27 | PCM.HP.STD ---
HPI - General General Date of Service: 09/09/21 Chief Complaint: Mechanical fall, weakness. HPI Narrative The patient is an 86 y/o F walker dependent, extremely hard of hearing w/ PMHx: Valvular Heart Disease, Diabetes mellitus type II with neuropathy, HTN, HLD, Chronic atrial fibrillation, Hypothyroidism, IBS, Non-ischemic cardiomyopathy/Systolic CHF who presents to the [facility] ED on 09/09/21 with history of getting out of the shower this AM with loss of balance with fall with ongoing pain primarily to the hips, knees with concern for safety caring for herself at home where she lives alone. She notes feeling weak and uncomfortable later in the day prompting eventual ED evaluation. Work-up in the ED included T 97.8, heart rate 64, BP 185/76, respiratory rate 16, 97% on room air, plain film of the left foot with diffuse osteopenia with polyarticular arthrosis with no demonstrated fracture, plain film of the pelvis with age consistent hip and SI joint arthroses with no demonstrated fracture or suspicious osseous lesions, CT the brain with chronic involutional changes with no acute hemorrhage with noted expansile lesion in the left frontotemporal region with subtle scalloping likely secondary to benign bony lesion, plain film of the left knee with moderate degree of 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 In the ED patient administered hydrocodone tablet x1. Family very concerned about patient possible return to home secondary to difficulty even caring for self and fall risk currently. Patient is amenable to transition including likely need for assisted living long-term. [facility] Medical History Cataracts, bilateral Essential (primary) hypertension Gallstones Hyperlipidemia Hypothyroid IBS (irritable bowel syndrome) Longstanding persistent atrial fibrillation Non-ischemic cardiomyopathy Non-rheumatic tricuspid valve insufficiency Nonrheumatic aortic (valve) stenosis Obesity Osteoarthritis Seasonal allergies Secondary pulmonary arterial hypertension Type 2 diabetes, controlled, with neuropathy Home Medications coenzyme Q10 200 mg capsule 200 mg PO QDAY 11/18/17 [History Last Taken 05/19/19 08:00 200 mg] glucosamine 500 mg-msm 100 mg-vit C 20 sj-ectdy-oeys-primrose capsule 1 cap PO DAILY 11/18/17 [History Last Taken Unknown] cholecalciferol (vitamin D3) 1,000 unit PO DAILY 05/05/18 [History Last Taken 05/16/19 08:00 1,000 unit] cyanocobalamin (vitamin B-12) 500 mcg PO DAILY 03/26/18 [History Last Taken 05/11/19 08:00 500 mcg] losartan 50 mg-hydrochlorothiazide 12.5 mg tablet 1 tab PO QDAY 07/04/18 [History Last Taken Unknown] levothyroxine 100 mcg PO DAILY 05/20/19 [History Last Taken 05/20/19 06:00 100 mcg] metformin 1,500 mg PO BREAKFAST 05/20/19 [History Last Taken 05/20/19 08:00 1500 mg] apixaban 2.5 mg tablet 2.5 mg PO BID 03/17/21 [History Last Taken Unknown] furosemide 20 mg PO DAILY 09/09/21 [History Last Taken 09/09/21] metoprolol tartrate 50 mg PO DAILY 09/09/21 [History Last Taken 09/09/21] Allergy/AdvReac Type Severity Reaction Status Date / Time Penicillins Allergy Severe Unknown Verified 09/09/21 14:31 red dye Allergy Severe Unknown Verified 09/09/21 14:31 Family History Grandmother Cancer CVA (cerebral vascular accident) Mother Diabetes Heart disease Father Heart disease Surgical History History of total abdominal hysterectomy Hx of cholecystectomy Social History (Updated 09/09/21 @ 19:[address] Gail Walter MD) household members: none Smoking Status: Never smoker second hand exposure: No alcohol intake: never substance use type: does not use ROS ROS Narrative Admission Review of Systems: CONSTITUTIONAL: No weight loss, fever, chills, + weakness or fatigue. HEENT: Eyes: No visual loss, blurred vision, double vision or yellow sclerae. Ears, Nose, Throat: No hearing loss, sneezing, congestion, runny nose or sore throat. SKIN: No rash or itching, lesions, wounds. CARDIOVASCULAR: + Chronic bilateral lower extremity swelling, no chest pain, chest pressure or chest discomfort, palpitations, orthopnea, syncopal events. RESPIRATORY: No shortness of breath, cough or sputum, wheezing, hemoptysis. GASTROINTESTINAL: No anorexia, nausea, vomiting or diarrhea, abdominal pain, melena, BRBPR. GENITOURINARY: No dysuria, frequency, urgency or retention. NEUROLOGICAL: + Fall, no headache, dizziness, syncope, paralysis, ataxia, numbness or tingling in the extremities, focal weakness, change in bowel or bladder control, seizure. MUSCULOSKELETAL: + muscle, back pain, joint pain or stiffness. HEMATOLOGIC: + anemia, bleeding or bruising. LYMPHATICS: No enlarged nodes. No history of splenectomy. PSYCHIATRIC: + history of depression or anxiety. ENDOCRINOLOGIC: No reports of sweating, cold or heat intolerance. No polyuria or polydipsia. ALLERGIES: No history of asthma, hives, eczema or rhinitis. Vital Signs Vital Signs Vital Signs: 09/09/21 14:13 09/09/21 15:49 09/09/21 17:05 Temperature 97.8 F Temperature Source Temporal Pulse Rate 64 63 Respiratory Rate 18 15 Respiratory Effort Normal Respiratory Depth Normal Respiratory Pattern Normal Blood Pressure 185/76 H 180/89 H Blood Pressure Mean 112 119 Pulse Ox 97 97 Oxygen Delivery Method Room Air Room Air Room Air Weight Weight: 170 lb Body Mass Index (BMI) 27.4 Physical Exam Narrative Physical Examination: General: Awake, alert, oriented x 3 however very difficult to communicate as severely hard of hearing, better in the right ear, remains cooperative, seated upright in the ED bed, no acute distress, notes still has some aches from her recent fall. Skin: Normal color, normal turgor, no icterus, no cyanosis. HEENT: AT/NC, EOMI, PERRLA, MMM, no carotid bruits or marked JVD noted. Lungs: Mildly diminished, greater bases, appropriate effort, no rales, ronchi or wheezing. Heart: Irregular; no gallop, rub audible, notable + SM. Abdomen: Soft, overweight, NTTP, ND, distant normal BS, no obvious evidence of HSM. Extremities: No cyanosis, no clubbing, bilateral lower extremity pedal to mid goodman 1-2+ pitting edema, chronic. Neurological: Patient awake, alert, oriented as noted, cognitive function appears baseline intact with severe hearing deficits as noted; pupils equally reactive to light and accommodation, cranial nerves grossly normal, moving all 4 extremities, no focal deficits, strength moderately to severely global decreased. Psychiatric: Affect appears mildly fatigued otherwise normal, no acute evidence of depressive or anxiety feelings. Results Radiology Impression Knee X-Ray 09/09/21 14:49 IMPRESSION: Moderate in degree of the 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 Electronically Signed: Shantanu Newell MD at 15:09 EDT , Service support , Brain CT 09/09/21 16:11 IMPRESSION: Chronic involutional changes of the brain. No acute hemorrhage Expansile lesion in the left frontal/temporal region with subtle scalloping. I suspect this is a benign bony lesion, not related to patient''s fall. Electronically Signed: Prince Saunders MD at 17:17 EDT , Service support , Pelvis X-Ray 09/09/21 16:11 IMPRESSION: Age consistent hip and SI joint arthrosis, no demonstrated fracture or suspicious osseous lesion. However, hip and pelvic fractures in patients of this age can be subtle, if there is strong clinical suspicion of a fracture, recommend further evaluation with CT Electronically Signed: Prince Saunders MD at 17:11 EDT , Service support , Foot X-Ray 09/09/21 16:35 IMPRESSION: Diffuse osteopenia with polyarticular arthrosis, no demonstrated fracture Vascular calcifications Pes planus Electronically Signed: Prince Saunders MD at 17:10 EDT , Service support , Assessment & Plan Assessment/Plan (1) Fall: QUALIFIERS: Encounter type: initial encounter Qualified Code(s): W19.XXXA - Unspecified fall, initial encounter (2) Failure to thrive in adult: PLAN: The patient is an 86 y/o F walker dependent w/ PMHx: Valvular Heart Disease, Diabetes mellitus type II with neuropathy, HTN, HLD, Chronic atrial fibrillation, Hypothyroidism, IBS, Non-ischemic cardiomyopathy/Systolic CHF who presents to the [facility] ED on 09/09/21 with history of getting out of the shower this AM with loss of balance with fall with ongoing pain primarily to the hips, knees with concern for safety caring for herself at home where she lives alone. 1. Mechanical fall with weakness, failure to thrive, adult: Patient with no obvious injury on plain films and CT imaging in the ED, will admit to medical surgical floor, maintain on fall precautions, offloading as needed, as needed pain topicals, PRN tramadol, PT/OT/case management consultations for discharge planning, if ongoing pain may need to consider CT of the hip to be cautious. Will obtain admission CBC, CMP given plan as needed medication usage. Will defer any aggressive hydration especially given underlying notable valvular disease and cardiomyopathy/CHF history. Likely will need placement however per ED social work unable to be placed on day of presentation. 2. Chronic atrial fibrillation: We will continue patient home metoprolol regimen as well as apixaban however given fall history and noted falls prior may need to consider discontinuation. 3. Nonischemic cardiomyopathy, Chronic Systolic CHF: We will continue patient home apixaban cautiously as noted, metoprolol, losartan, Lasix with hold parameters as needed, not on statin therapy. 4. Valvular heart disease: 02/07/2021 echocardiogram with moderately increased LV size, mildly increased wall thickness, systolic function normal, EF 25 to 30%, dyskinesis of the septal myocardium with inability to assess diastolic function, severe aortic stenosis, RV mildly increased in size, mildly reduced systolic function, systolic pressure moderately increased, RVSP 65 mmHg, mild pulmonary regurgitation, moderate to severe tricuspid valve regurgitation, moderately dilated right atrium. Patient following w/ Cardiology and has declined recommendation for aortic valve surgery or a TAVR with planned ongoing medical management. 5. Diabetes mellitus type II with neuropathy: Hold oral home regimen, ADA diet, accu checks w/ ISS. 6. Hypertension: Continue home regimen including Lasix, losartan, hydrochlorothiazide, metoprolol with hold parameters as needed, PRN hydralazine. 7. Hyperlipidemia: Not on regimen, defer to outpatient. 8. Hypothyroidism: Continue home synthroid regimen, TSH pending. 9. Anxiety and depression: Patient outpatient is on low-dose 3 times daily lorazepam, may be contributing to fall history, will judiciously continue to avoid withdrawal but would strongly benefit from alternate regimens. 10. DVT prophylaxis: SCDs, will continue patient home apixaban regimen however given fall history may consider discontinuation if risk outweighs benefit. Did discuss with family these concerns. 11. CODE status: Patient family present for discussions. Discussed CODE status at length including difference between FULL code, DNR-CCA and DNR-CC status. Following discussions about the differences in these status, requested DNR-CCA, no intubation status. Advanced Care Planning Face to Face Time: 16 minutes. Charges/Coding Visit Charges OBSV E&M: 44208 Initial observation care L3 Procedures Hospitalists Procedures: 70923 Advncd Care Plan 30 Min
--- NOTE | 2021-09-09 19:28 | CM.ED ---
LINDA Note Referral Source: MD Referral Reason: Patient and Family report they don't feel patient is safe to go home. LINDA sent text to [facility]. TCU has no beds available. LINDA met with patient and her grandson, Oliver. lOiver said that patient was taking a shower this morning and she slipped and went down. Oliver said that he called patient at noon and patient was unable to walk or stand up. Oliver said that there is no way she can care for herself. Oliver said that there are family members but her house is not conducive to anyone staying with her and helping as he said that patient would be on the toilet and family would be unable to assist her. Patient was asked if she could go home and she said there is no way I can get around. Oliver said that patient, whenever she was moved today, broke down in tears whenever she moved. Oliver said that patient is currently is medicated so is not in pain. Oliver said that patient has a wheeled walker at home. Patient said that she is unable to balance or stand up. LINDA provided list of SNF in [facility]. Oliver said that patient has been to [facility] in the past and would prefer to go back there. Patient asked if she could have a bigger room at [facility] and this advertising copywriter explained that [facility] makes the room determination. Oliver said that patient did not like her room at [facility] as it was too cold. Patient did stated that she would only go to [facility] and when asked about a option B patient said that she would not go anywhere else. Oliver and patient voiced that they did not feel patient would be safe to go home tonight. LINDA updated MD. LINDA will send daily report updating assigned social research assistant. Plan: SNF [facility]
[2021-09-09 19:54] VITALS: BP 136/66; PULSE 62; RESP 20; O2SAT 96
--- NOTE | 2021-09-09 19:57 | EX.ED.DYSGE1 ---
HPI History of Present Illness Chief Complaint: Fall Narrative Narrative: Patient is an 86-year-old female who lives at home alone. Reportedly she was in the bathroom today and slipped and fell. She denies hitting her head or any loss of consciousness but states she has had difficulty ambulating since the fall secondary to knee pain. She states she was able to get back up and sat in a chair but after sitting for a few hours had worsening pain to the point where she could not ambulate and secondary to this was brought in for evaluation [facility] Medical History Cataracts, bilateral Essential (primary) hypertension Gallstones Hyperlipidemia Hypothyroid IBS (irritable bowel syndrome) Longstanding persistent atrial fibrillation Non-ischemic cardiomyopathy Non-rheumatic tricuspid valve insufficiency Nonrheumatic aortic (valve) stenosis Obesity Osteoarthritis Seasonal allergies Secondary pulmonary arterial hypertension Type 2 diabetes, controlled, with neuropathy Home Medications coenzyme Q10 200 mg capsule 200 mg PO QDAY 11/18/17 [History Last Taken 05/19/19 08:00 200 mg] glucosamine 500 mg-msm 100 mg-vit C 20 wf-mrveo-gxlv-primrose capsule 1 cap PO DAILY 11/18/17 [History Last Taken Unknown] cholecalciferol (vitamin D3) 1,000 unit PO DAILY 03/26/18 [History Last Taken 05/16/19 08:00 1,000 unit] cyanocobalamin (vitamin B-12) 500 mcg PO DAILY 03/26/18 [History Last Taken 05/11/19 08:00 500 mcg] losartan 50 mg-hydrochlorothiazide 12.5 mg tablet 1 tab PO QDAY 07/04/18 [History Last Taken Unknown] levothyroxine 100 mcg PO DAILY 05/20/19 [History Last Taken 05/20/19 06:00 100 mcg] metformin 1,500 mg PO BREAKFAST 05/20/19 [History Last Taken 05/20/19 08:00 1500 mg] apixaban 2.5 mg tablet 2.5 mg PO BID 03/17/21 [History Last Taken Unknown] furosemide 20 mg PO DAILY 09/09/21 [History Last Taken 09/09/21] metoprolol tartrate 50 mg PO DAILY 09/09/21 [History Last Taken 09/09/21] Allergy/AdvReac Type Severity Reaction Status Date / Time Penicillins Allergy Severe Unknown Verified 09/09/21 14:31 red dye Allergy Severe Unknown Verified 09/09/21 14:31 Family History Grandmother Cancer CVA (cerebral vascular accident) Mother Diabetes Heart disease Father Heart disease Surgical History History of total abdominal hysterectomy Hx of cholecystectomy Social History (Updated 09/09/21 @ 19:[address] Gail Walter MD) household members: none Smoking Status: Never smoker second hand exposure: No alcohol intake: never substance use type: does not use ROS ROS ED Constitutional Constitutional ED: Denies chills or fever(s) ENT ENT ED: Denies sore throat Cardiovascular Cardiovascular: Denies chest pain Respiratory/Chest Respiratory/Chest: Denies cough or dyspnea Gastrointestinal Gastrointestinal: Denies abdominal pain, diarrhea, nausea or vomiting Genitourinary Genitourinary ED: Denies dysuria Musculoskeletal Musculoskeletal: Reports arthralgias; Denies back pain, myalgias or neck pain Integumentary Denies Abrasions or rash Neurologic Neurologic: Denies headache(s) Hematologic/Lymphatic Hematologic/Lymphatic: Reports easy bleeding and easy bruising EXAM Physical Exam Const Vital Signs: 09/09/21 14:13 09/09/21 15:49 09/09/21 17:05 Temperature 97.8 F Temperature Source Temporal Pulse Rate 64 63 Respiratory Rate 18 15 Respiratory Effort Normal Respiratory Depth Normal Respiratory Pattern Normal Blood Pressure 185/76 H 180/89 H Blood Pressure Mean 112 119 Pulse Ox 97 97 Oxygen Delivery Method Room Air Room Air Room Air Positive well nourished and well developed General Appearance ED: well developed HEENT Reports moist mucous membranes HEENT Narrative: No signs of depressed or basilar skull fracture Eyes PERRL and EOMs intact bilaterally Neck supple Neck Narrative: No midline pain with palpation no bony deformity or step-off of the cervical spine Chest Wall palpation of chest normal Resp normal respiratory effort and clear to auscultation bilaterally Cardio regular rate and regular rhythm GI normal to inspection, nondistended, normoactive bowel sounds, non-tender, non-distended and no masses Auscultation: normoactive bowel sounds Palpation: soft Back/Spine Back/Spine Narrative: No bony deformity or step-off of the thoracic or lumbar spine no midline pain with palpation Extremity Extremity Narrative: Pelvis is stable there is no shortening or external rotation of either lower extremity. Patient does have mild soft tissue swelling to the anterior aspect of the left knee without obvious bony deformity or joint effusion. Knee ligaments are stable and patellar tendon is intact Neuro oriented x3 and CN's II-XII intact bilaterally Sensorium / Orientation: alert Psych mental status grossly normal Skin no rashes or lesions noted MDM MDM MDM Narrative Medical decision making narrative: Patient presented to the ER awake and alert at baseline mental status with no signs of head injury. Moreover she reported a mechanical fall so I felt no need for cardiac or syncope work-up. With her report of blood thinner use I did elect to scan her head to rule out underlying brain trauma which was negative and x-rays were obtained of the areas that were painful. X-rays revealed no acute traumatic finding. However with pain medication patient can still not walk. Therefore she is unsafe to return to her home. She was evaluated by social work and at this time plan is for placement in [facility] tomorrow. However as we cannot facilitate the transfer until tomorrow she will need to stay in the hospital overnight secondary to her inability to ambulate Radiography Diagnostic Testing: Clinical Impression(s) from Imaging Studies Knee X-Ray 09/09/21 14:49 IMPRESSION: Moderate in degree of the 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 Electronically Signed: Shantanu Newell MD at 15:09 EDT , Service support , Brain CT 09/09/21 16:11 IMPRESSION: Chronic involutional changes of the brain. No acute hemorrhage Expansile lesion in the left frontal/temporal region with subtle scalloping. I suspect this is a benign bony lesion, not related to patient''s fall. Electronically Signed: Prince Saunders MD at 17:17 EDT , Service support , Pelvis X-Ray 09/09/21 16:11 IMPRESSION: Age consistent hip and SI joint arthrosis, no demonstrated fracture or suspicious osseous lesion. However, hip and pelvic fractures in patients of this age can be subtle, if there is strong clinical suspicion of a fracture, recommend further evaluation with CT Electronically Signed: Prince Saunders MD at 17:11 EDT , Service support , Foot X-Ray 09/09/21 16:35 IMPRESSION: Diffuse osteopenia with polyarticular arthrosis, no demonstrated fracture Vascular calcifications Pes planus Electronically Signed: Prince Saunders MD at 17:10 EDT , Service support , Discharge Plan Triage Chief Complaint: Fall ED Provider: Fercho Craig Dx/Rx/DC Orders Clinical Impression: Inability to ambulate due to multiple joints, Acute pain of left knee, Accidental fall Prescriptions: No Action fixzu-fgs-M-oetty-ndym-euo [Joint Support Complex] [id number] mg capsule 1 cap PO DAILY RF: 0 coenzyme Q10 [Co Q-10] 200 mg capsule 200 mg PO QDAY RF: 0 multivitamin chewable tablet tablet,chewable 1 tab PO QDAY RF: 0 losartan-hydrochlorothiazide 50-12.5 mg tablet 1 tab PO QDAY RF: 0 Eliquis 2.5 mg tablet 2.5 mg PO BID RF: 0 metoprolol succinate 25 mg tablet extended release 24 hr 25 mg PO DAILY RF: 0 furosemide [Lasix] 40 mg tablet 40 mg PO DAILY Qty: 90 RF: 2 potassium 99 MG tablet 99 mg PO DAILY RF: 0 cyanocobalamin (vitamin B-12) 500 MCG tablet 500 mcg PO DAILY RF: 0 cholecalciferol (vitamin D3) 1,000 UNIT capsule 1,000 unit PO DAILY RF: 0 levothyroxine 100 MCG tablet 100 mcg PO DAILY RF: 0 metformin 500 MG tablet 500 mg PO DINNER RF: 0 lorazepam 0.5 MG tablet 0.5 mg PO TID PRN PRN (Reason: Anxiety) RF: 0 metformin 1,000 MG tablet 1,500 mg PO BREAKFAST RF: 0 tramadol 50 MG tablet 50 mg PO TID PRN PRN (Reason: Moderate Pain (4-5/10)) Qty: 14 RF: 0 bisacodyl 5 MG tablet 5 mg PO DAILY PRN PRN (Reason: Constipation) Qty: 0 RF: 0 (DME) blood sugar diagnostic [Contour Next Test Strips] strip See Dose Instructions .ROUTE .MEDSUPPLY Qty: 120 RF: 11 Primary Care Provider: Efrain Corbin Referrals: Efrain Corbin MD [Primary Care Provider] - Disposition Disposition: Acute Care Hospital [facility]
[2021-09-09 20:33] VITALS: BP 136/67; PULSE 63; RESP 18; TEMP 37.1; O2SAT 95
[2021-09-09 20:59] VITALS: BMI 32.7
[2021-09-09 21:11] VITALS: BP 144/67; PULSE 67; RESP 18; TEMP 36.6; O2SAT 96
[2021-09-09 21:21] LABS: Absolute Lymphocyte Count 1.12 X10^3/uL (0.83-4.51); Absolute Neutrophil Count 7.1 X10^3/uL (2.0-7.7); Basophil# 0.03 X10^3/uL; Basophil% 0.3 % (0-1); Eosinophil# 0.02 X10^3/uL; Eosinophils% 0.2 % (0-5); Hematocrit 32.9 % (37-47); Hemoglobin 10.1 g/dL (12.0-15.0); Lymphocyte # 1.12 X10^3/ul (0.83-4.51); Lymphocyte % 12.6 % (19-41); Mean Corp Hgb Conc 30.7 g/dL (32-36); Mean Corpuscular Hgb 28.3 pg (27.0-32.0); Mean Corpuscular Volume 92.2 fL (81-99); Mean Platelet Vol. 10.3 fl (6.2-12.0); Monocyte# 0.59 X10^3/uL; Monocyte% 6.7 % (0-10); NRBC Flagged by Analyzer 0 % (0-5); Neutrophil # 7.07 X10^3/uL (2.7-7.7); Neutrophil % 79.7 % (47-70); Platelet Count 206 K/mm3 (150-450); RBC Distribution Width CV 15.5 % (11.6-14.6); RBC Distribution Width SD 52.5 fl (35.1-43.9); Red Blood Count 3.57 M/mm3 (4.2-5.4); White Blood Count 8.9 K/mm3 (4.4-11.0)
[2021-09-09 21:27] LABS: ALB/GLOB Ratio 0.9 RATIO (0.9-2.4); AST(SGOT) 21 U/L (15-37); Alanine Aminotransfer ALT/SGPT 18 U/L (13-56); Albumin, Serum 3.4 g/dL (3.2-5.0); Alkaline Phosphatase 57 U/L (45-117); Anion Gap 7 (5-15); BUN 22 mg/dL (7-18); Calcium,Total 9.4 mg/dL (8.5-10.1); Chloride 102 mmol/L (98-107); Creatinine, Serum 0.92 mg/dL (0.55-1.02); EST Glomerular Filtration Rate 62 mL/min (>60); Est Glom Filt Rate - Afr Amer 75 mL/min (>60); Estimated Creatinine Clearance 36.31 ml/min; Globulin 3.7 g/dL (2.2-4.2); Glucose 207 mg/dL (74-106); Potassium 3.6 mmol/L (3.5-5.1); Protein, Total 7.1 g/dL (6.4-8.2); Sodium Level 140 mmol/L (136-145)
[2021-09-09] MEDS: Arthritis Pain Compound 60 CLICK TUBE TOPICAL (22:05)
[2021-09-09 22:26] LABS: Bedside Glucose 166 mg/dL (70-110)
--- NOTE | 2021-09-09 22:59 | PCS.PANDOC ---
PANDEMIC DOCUMENTATION INITIATED: Date: 09/09/2021 Time: 2100
[2021-09-10 03:10] VITALS: BP 117/66; PULSE 61; RESP 16; TEMP 37; O2SAT 96
[2021-09-10 05:44] LABS: Absolute Lymphocyte Count 1.22 X10^3/uL (0.83-4.51); Basophil# 0.04 X10^3/uL; Basophil% 0.6 % (0-1); Eosinophil# 0.09 X10^3/uL; Eosinophils% 1.3 % (0-5); Hematocrit 32.4 % (37-47); Hemoglobin 10.2 g/dL (12.0-15.0); Lymphocyte # 1.22 X10^3/ul (0.83-4.51); Lymphocyte % 17.2 % (19-41); Mean Corp Hgb Conc 31.5 g/dL (32-36); Mean Corpuscular Hgb 28.5 pg (27.0-32.0); Mean Corpuscular Volume 90.5 fL (81-99); Mean Platelet Vol. 9.9 fl (6.2-12.0); Monocyte# 0.71 X10^3/uL; NRBC Flagged by Analyzer 0 % (0-5); Neutrophil # 5.02 X10^3/uL (2.7-7.7); Neutrophil % 70.6 % (47-70); Platelet Count 203 K/mm3 (150-450); RBC Distribution Width CV 15.5 % (11.6-14.6); RBC Distribution Width SD 51.7 fl (35.1-43.9); Red Blood Count 3.58 M/mm3 (4.2-5.4); White Blood Count 7.1 K/mm3 (4.4-11.0)
[2021-09-10 06:20] LABS: ALB/GLOB Ratio 0.8 RATIO (0.9-2.4); AST(SGOT) 18 U/L (15-37); Alanine Aminotransfer ALT/SGPT 15 U/L (13-56); Alkaline Phosphatase 53 U/L (45-117); Anion Gap 7 (5-15); BUN 21 mg/dL (7-18); BUN/Creat Ratio 25.8 RATIO (10-20); Chloride 102 mmol/L (98-107); Creatinine, Serum 0.82 mg/dL (0.55-1.02); EST Glomerular Filtration Rate 71 mL/min (>60); Est Glom Filt Rate - Afr Amer 86 mL/min (>60); Estimated Creatinine Clearance 40.74 ml/min; Globulin 3.8 g/dL (2.2-4.2); Glucose 141 mg/dL (74-106); Potassium 3.7 mmol/L (3.5-5.1); Protein, Total 6.8 g/dL (6.4-8.2); Sodium Level 140 mmol/L (136-145); Thyroid Stim Hormone (TSH) 1.19 uIU/mL (0.358-3.74)
[2021-09-10] MEDS: Levothyroxine 100 MCG Tablet PO (06:24)
[2021-09-10 06:31] LABS: Bedside Glucose 153 mg/dL (70-110)
--- NOTE | 2021-09-10 07:52 | PN.HOSP_ITS ---
Subjective Subjective Patient is an 86-year-old lady admitted with recurrent falls. Did experience new contusion imaging studies did not show any fracture admitted to regular nursing floor for further Management Objective Data Objective Data Vital Signs: Vital Signs Temp Pulse Resp BP Pulse Ox 98.6 F 61 16 117/66 96 09/10/21 03:10 09/10/21 03:10 09/10/21 03:10 09/10/21 03:10 09/10/21 03:10 Oxygen Delivery Method Room Air Weight: 84.8 kg Body Mass Index (BMI) 32.7 Intake & Output: Intake and Output for Last 24 Hours 09/08/21 09/09/21 09/10/21 23:59 23:59 23:59 Intake Total 100 / 100 120 / 120 Output Total 200 / 200 Balance 100 / 100 -80 / -80 Lab / Micro Data Result Diagrams: 09/10/21 05:06 09/10/21 05:06 Labs: Laboratory Results - last 24 hr 09/09/21 19:50: Magnesium 2.0 09/09/21 19:50: WBC 8.9, RBC 3.57 L, Hgb 10.1 L, Hct 32.9 L, MCV 92.2, MCH 28.3, MCHC 30.7 L, RDW Std Deviation 52.5 H, RDW Coeff of Yane 15.5 H, Plt Count 206, MPV 10.3, Immature Gran % (Auto) 0.500, Neut % (Auto) 79.7 H, Lymph % (Auto) 12.6 L, [place] % (Auto) 6.7, Eos % (Auto) 0.2, Baso % (Auto) 0.3, Absolute Neuts (auto) 7.1, Absolute Lymphs (auto) 1.12, Nucleated RBC % 0 09/09/21 19:50: Sodium 140, Potassium 3.6, Chloride 102, Carbon Dioxide 31.0, Anion Gap 7, BUN 22 H, Creatinine 0.92, Estim Creat Clear Calc 36.31, Est GFR (MDRD) Af Amer 75, Est GFR (MDRD) Non-Af 62, BUN/Creatinine Ratio 24.0 H, Glucose 207 H, Calcium 9.4, Total Bilirubin 0.80, AST 21, ALT 18, Alkaline Phosphatase 57, Total Protein 7.1, Albumin 3.4, Globulin 3.7, Albumin/Globulin Ratio 0.9 09/09/21 22:07: POC Glucose 166 H 09/10/21 05:06: WBC 7.1, RBC 3.58 L, Hgb 10.2 L, Hct 32.4 L, MCV 90.5, MCH 28.5, MCHC 31.5 L, RDW Std Deviation 51.7 H, RDW Coeff of Yane 15.5 H, Plt Count 203, MPV 9.9, Immature Gran % (Auto) 0.300, Neut % (Auto) 70.6 H, Lymph % (Auto) 17.2 L, [place] % (Auto) 10.0, Eos % (Auto) 1.3, Baso % (Auto) 0.6, Absolute Neuts (auto) 5.0, Absolute Lymphs (auto) 1.22, Nucleated RBC % 0 09/10/21 05:06: Sodium 140, Potassium 3.7, Chloride 102, Carbon Dioxide 31.0, Anion Gap 7, BUN 21 H, Creatinine 0.82, Estim Creat Clear Calc 40.74, Est GFR (MDRD) Af Amer 86, Est GFR (MDRD) Non-Af 71, BUN/Creatinine Ratio 25.8 H, Glucose 141 H, Calcium 9.0, Total Bilirubin 1.00, AST 18, ALT 15, Alkaline Phosphatase 53, Total Protein 6.8, Albumin 3.0 L, Globulin 3.8, Albumin/Globulin Ratio 0.8 L, TSH 1.19 09/10/21 06:23: POC Glucose 153 H Radiography Diagnostic Testing: Radiology Impression Knee X-Ray 09/09/21 14:49 IMPRESSION: Moderate in degree of the 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 Electronically Signed: Shantanu Newell MD at 15:09 EDT , Service support , Brain CT 09/09/21 16:11 IMPRESSION: Chronic involutional changes of the brain. No acute hemorrhage Expansile lesion in the left frontal/temporal region with subtle scalloping. I suspect this is a benign bony lesion, not related to patient''s fall. Electronically Signed: Prince Saunders MD at 17:17 EDT , Service support , Pelvis X-Ray 09/09/21 16:11 IMPRESSION: Age consistent hip and SI joint arthrosis, no demonstrated fracture or suspicious osseous lesion. However, hip and pelvic fractures in patients of this age can be subtle, if there is strong clinical suspicion of a fracture, recommend further evaluation with CT Electronically Signed: Prince Saunders MD at 17:11 EDT , Service support , Foot X-Ray 09/09/21 16:35 IMPRESSION: Diffuse osteopenia with polyarticular arthrosis, no demonstrated fracture Vascular calcifications Pes planus Electronically Signed: Prince Saunders MD at 17:10 EDT , Service support , Physical Exam Narrative GENERAL: cooperative HEENT: Atraumatic; EYES; Anicteric, Normal Conjunctiva NECK; supple, normal thyroid, RESPIRATORY: Diminished to auscultation CARDIOVASCULAR: Irregular S1 S2, GI: soft, normoactive bowel sounds, : No Renal angle tenderness; EXTREMITIES: No edema, no clubbing, MUSCULOSKELETAL: no muscle waisting NEURO: Awake; no lateralizing signs. SKIN: No Rash PSYCH; Flat affect Assessment & Plan Assessment/Plan (1) Fall: QUALIFIERS: Encounter type: initial encounter Qualified Code(s): W19.XXXA - Unspecified fall, initial encounter (2) Failure to thrive in adult: PLAN: Patient is an 86-year-old lady admitted with recurrent falls. Did experience new contusion imaging studies did not show any fracture admitted to regular nursing floor for further Management 1. Adult failure to thrive ?With recurrent falls. Admitted to regular nursing floor with consultation placed to PT OT for eval and treatment and socially responsible investment adviser to assist with discharge planning. 2. Chronic A. fib ?Rate controlled on metoprolol also on systemic anticoagulation with apixaban given patient advanced age as well as recurrent falls patient stands as a significant risk for bleeding complications 3. Chronic congestive heart failure with reduced ejection fraction ?Patient has known EF of 25 to 30% from an echo obtained on 02/07/2021 4.Pulmonary hypertension ?Patient has known RVSP of 65 mmHg plan is to treat symptomatically 5. Hypertension - Blood pressure controlled, home medications continued with dose adjustment as needed 6. Severe aortic stenosis ?Patient apparently declined recommendation for valve surgery/TAVR 7. Diabetes mellitus type II -patient's oral hypoglycemics held. Placed on long acting insulin, Accu-Cheks a.c. and at bedtime and covered with sliding scale insulin. 8. Hypothyroidism - Patient is on levothyroxine home dose continuedtinue patient home metoprolol regimen as well as apixaban however given fall history and noted falls prior may need to consider discontinuation. 9. Anemia (normocytic anemia) - Secondary to chronic disorder monitoring H&H and transfuse if patient becomes symptomatic or hemoglobin falls below 7 10 DVT prophylaxis -Apixaban for now Charges/Coding Visit Charges OBSV E&M: 31137 Subsequent observation care L3
[2021-09-10] MEDS: Arthritis Pain Compound 60 CLICK TUBE TOPICAL (08:17)
[2021-09-10 09:10] VITALS: BP 117/62; PULSE 70; RESP 16; TEMP 36.7; O2SAT 91
[2021-09-10 09:30] VITALS: BP 117/62; PULSE 70
[2021-09-10] MEDS: Metoprolol(XL)Succ 25 MG Tablet PO (09:30)
[2021-09-10] MEDS: APIXABAN 2.5 MG TABLET PO (09:30)
[2021-09-10] MEDS: Cyanocobalamin 500 MCG Tablet PO (09:30)
[2021-09-10] MEDS: Furosemide 40 MG Tablet PO (09:30)
[2021-09-10] MEDS: hydroCHLOROthiazide 12.5mg 12.5 MG PO (09:30)
[2021-09-10] MEDS: Cholecalciferol (VIT D3) 25 MCG TABLET (1,000 UNITS) PO (09:30)
--- NOTE | 2021-09-10 10:06 | CASEMGMT ---
Social Work SW to room to meet with patient for initial assessment and discharge planning. Pt resting in bed in no distress at this time. Pt is A/O at this time and answers all questions appropriately. PCP: Dr. Corbin Insurance: Medicare and AARP Prescription Benefit: Yes Living Will/HPOA: Pt states she does have a living will and health care POA naming her grandson Collins Barriga. Documents are not on file. LNOK: Collins Barriga, grandson and Heladio Barriga, son Living Arrangements: pt lives in a one story home with ramped entrance. Pt states she has been independent with all ADLs and is able to do laundry and make meals. Transportation: Pt is unable to drive but family does provide assist. DME: Pt has a walker, cane, walk in shower with seat, ramp, lift chair HHC/SNF: previous at [facility] Pt stating that she does not feel she can return home at this time and would like to go to [facility] for short term rehab. VM left with Tracy at [facility] informing of referral. Will await return call and fax referral once confirmed that [facility] has beds available. VINNY Boggs
[2021-09-10] MEDS: Losartan Potassium 50 MG Tablet PO (11:06)
[2021-09-10 11:11] LABS: Bedside Glucose 230 mg/dL (70-110)
--- NOTE | 2021-09-10 13:17 | DS.PCM_ITS ---
Providers Date of Admission: 09/09/21 Primary Care Physician: Dr. Efrain Corbin MD Reason For Visit: FALL, FTT ADULT Diagnosis Discharge Diagnosis (1) Fall: Status: Acute Code(s): W19.XXXA - Unspecified fall, initial encounter Qualifiers: Encounter type: initial encounter Qualified Code(s): W19.XXXA - Unspecified fall, initial encounter (2) Failure to thrive in adult: Status: Acute Code(s): R62.7 - Adult failure to thrive Medications at Discharge Home Medications coenzyme Q10 200 mg capsule 200 mg PO QDAY 11/18/17 glucosamine 500 mg-msm 100 mg-vit C 20 nn-rttwx-xwac-primrose capsule 1 cap PO DAILY 11/18/17 cholecalciferol (vitamin D3) 1,000 unit PO DAILY 03/26/18 cyanocobalamin (vitamin B-12) 500 mcg PO DAILY 03/26/18 losartan 50 mg-hydrochlorothiazide 12.5 mg tablet 1 tab PO DAILY 07/04/18 levothyroxine 100 mcg PO DAILY 05/20/19 metformin 500 mg PO TID 05/20/19 apixaban 2.5 mg tablet 2.5 mg PO DAILY 03/17/21 furosemide 20 mg PO DAILY 09/09/21 Arthritis Pain Compound 0 click TOPICAL BID #0 09/10/21 acetaminophen [Tylenol] 650 mg PO Q4H PRN PRN #0 tab 09/10/21 alum-mag hydroxide-simeth [Mag-Al Plus Extra Strength] 30 ml PO Q6H PRN PRN #0 ml 09/10/21 bisacodyl 5 mg PO DAILY PRN PRN #0 tab 09/10/21 insulin lispro [Humalog KwikPen Insulin] See Protocol SUBCUT ACHS #0 ml 09/10/21 melatonin 3 mg PO QHS PRN PRN #0 tab 09/10/21 oxycodone 5 mg PO Q6H PRN 2 Days #8 cap 09/10/21 Hospital Course Procedures None Summary of Care Provided Minutes Spent on Discharge: 35 Hospital Course: Patient is an 86-year-old lady admitted with recurrent falls. Did experience new contusion imaging studies did not show any fracture admitted to regular nursing floor for further Management 1. Adult failure to thrive ?With recurrent falls. Admitted to regular nursing floor with consultation placed to PT OT for eval and treatment and social welfare administrator to assist with discharge planning. 2. Chronic A. fib ?Rate controlled on metoprolol also on systemic anticoagulation with apixaban given patient advanced age as well as recurrent falls patient stands as a sig nificant risk for bleeding complications if her falls continues at which point may need to be discontinued 3. Chronic congestive heart failure with reduced ejection fraction ?Patient has known EF of 25 to 30% from an echo obtained on 02/07/2021 4.Pulmonary hypertension ?Patient has known RVSP of 65 mmHg plan is to treat symptomatically 5. Hypertension - Blood pressure controlled, home medications continued with dose adjustment as needed 6. Severe aortic stenosis ?Patient apparently declined recommendation for valve surgery/TAVR 7. Diabetes mellitus type II -patient's oral hypoglycemics held. Placed on long acting insulin, Accu-Cheks a.c. and at bedtime and covered with sliding scale insulin. 8. Hypothyroidism - Patient is on levothyroxine home dose continuedtinue patient home metoprolol regimen as well as apixaban however given fall history and noted falls prior may need to consider discontinuation. 9. Anemia (normocytic anemia) - Secondary to chronic disorder monitoring H&H and transfuse if patient becomes symptomatic or hemoglobin falls below 7 10 DVT prophylaxis -Apixaban for now Physical Exam Narrative GENERAL: cooperative HEENT: Atraumatic; EYES; Anicteric, Normal Conjunctiva NECK; supple, normal thyroid, RESPIRATORY: Diminished to auscultation CARDIOVASCULAR: Irregular S1 S2, GI: soft, normoactive bowel sounds, : No Renal angle tenderness; EXTREMITIES: No edema, no clubbing, MUSCULOSKELETAL: no muscle waisting NEURO: Awake; no lateralizing signs. SKIN: No Rash PSYCH; Flat affect Weight / BMI Weight Weight: 84.8 kg Body Mass Index (BMI) 32.7 ABG / Lab / Microbiology Data Result Diagrams: 09/10/21 05:06 09/10/21 05:06 Laboratory: Laboratory Results - last 24 hr 09/09/21 19:50: Magnesium 2.0 09/09/21 19:50: WBC 8.9, RBC 3.57 L, Hgb 10.1 L, Hct 32.9 L, MCV 92.2, MCH 28.3, MCHC 30.7 L, RDW Std Deviation 52.5 H, RDW Coeff of Yane 15.5 H, Plt Count 206, MPV 10.3, Immature Gran % (Auto) 0.500, Neut % (Auto) 79.7 H, Lymph % (Auto) 12.6 L, [place] % (Auto) 6.7, Eos % (Auto) 0.2, Baso % (Auto) 0.3, Absolute Neuts (auto) 7.1, Absolute Lymphs (auto) 1.12, Nucleated RBC % 0 09/09/21 19:50: Sodium 140, Potassium 3.6, Chloride 102, Carbon Dioxide 31.0, Anion Gap 7, BUN 22 H, Creatinine 0.92, Estim Creat Clear Calc 36.31, Est GFR (MDRD) Af Amer 75, Est GFR (MDRD) Non-Af 62, BUN/Creatinine Ratio 24.0 H, Glucose 207 H, Calcium 9.4, Total Bilirubin 0.80, AST 21, ALT 18, Alkaline Phosphatase 57, Total Protein 7.1, Albumin 3.4, Globulin 3.7, Albumin/Globulin Ratio 0.9 09/09/21 22:07: POC Glucose 166 H 09/10/21 05:06: WBC 7.1, RBC 3.58 L, Hgb 10.2 L, Hct 32.4 L, MCV 90.5, MCH 28.5, MCHC 31.5 L, RDW Std Deviation 51.7 H, RDW Coeff of Yane 15.5 H, Plt Count 203, MPV 9.9, Immature Gran % (Auto) 0.300, Neut % (Auto) 70.6 H, Lymph % (Auto) 17.2 L, [place] % (Auto) 10.0, Eos % (Auto) 1.3, Baso % (Auto) 0.6, Absolute Neuts (au to) 5.0, Absolute Lymphs (auto) 1.22, Nucleated RBC % 0 09/10/21 05:06: Sodium 140, Potassium 3.7, Chloride 102, Carbon Dioxide 31.0, Anion Gap 7, BUN 21 H, Creatinine 0.82, Estim Creat Clear Calc 40.74, Est GFR (MDRD) Af Amer 86, Est GFR (MDRD) Non-Af 71, BUN/Creatinine Ratio 25.8 H, Glucose 141 H, Calcium 9.0, Total Bilirubin 1.00, AST 18, ALT 15, Alkaline Phosphatase 53, Total Protein 6.8, Albumin 3.0 L, Globulin 3.8, Albumin/Globulin Ratio 0.8 L, TSH 1.19 09/10/21 06:23: POC Glucose 153 H 09/10/21 11:01: POC Glucose 230 H Radiography Diagnostic Testing: Radiology Impression Knee X-Ray 09/09/21 14:49 IMPRESSION: Moderate in degree of the 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 Electronically Signed: Shantanu Newell MD at 15:09 EDT , Service support , Brain CT 09/09/21 16:11 IMPRESSION: Chronic involutional changes of the brain. No acute hemorrhage Expansile lesion in the left frontal/temporal region with subtle scalloping. I suspect this is a benign bony lesion, not related to patient''s fall. Electronically Signed: Prince Saunders MD at 17:17 EDT , Service support , Pelvis X-Ray 09/09/21 16:11 IMPRESSION: Age consistent hip and SI joint arthrosis, no demonstrated fracture or suspicious osseous lesion. However, hip and pelvic fractures in patients of this age can be subtle, if there is strong clinical suspicion of a fracture, recommend further evaluation with CT Electronically Signed: Prince Saunders MD at 17:11 EDT , Service support , Foot X-Ray 09/09/21 16:35 IMPRESSION: Diffuse osteopenia with polyarticular arthrosis, no demonstrated fracture Vascular calcifications Pes planus Electronically Signed: Prince Saunders MD at 17:10 EDT , Service support , D/C Instructions Discharge Diet: No restrictions and 1800 Calorie Control Diet Discharge Activity: Return to Normal Activity Call your doctor if you observe: Fever of 101 or Higher, Shortness of breath, Fainting spells and Chest pain Meaningful Use Info Meaningful Use Diagnoses (Choose all that apply): None applicable Discharge Plan Admission Admit Date/Time: 09/09/21 19:35 Attending Provider: Mainor Zaidi Primary Care Provider: Efrain Corbin Discharge Orders/Prescriptions Prescriptions: New acetaminophen [Tylenol] 325 mg Tablet 650 mg PO Q4H PRN PRN (Reason: Fever, pain 1-08/31) Qty: 0 RF: 0 melatonin 3 mg Tablet 3 mg PO QHS PRN PRN (Reason: Insomnia) Qty: 0 RF: 0 Arthritis Pain Compound 0 click topical BID Qty: 0 RF: 0 bisacodyl 5 mg Tablet,Delayed Release (Dr/Ec) 5 mg PO DAILY PRN PRN (Reason: Constipation) Qty: 0 RF: 0 alum-mag hydroxide-simeth [Mag-Al Plus Extra Strength] 400-400-40 mg/5 mL Suspension 30 ml PO Q6H PRN PRN (Reason: Gastric Burning) Qty: 0 RF: 0 insulin lispro [Humalog KwikPen Insulin] 100 unit/mL Insulin Pen See Protocol unit subcut ACHS Qty: 0 RF: 0 oxycodone 5 mg capsule 5 mg PO Q6H PRN (Reason: pain) 2 Days Qty: 8 RF: 0 Continued djdqi-ftm-I-osgfm-enhn-bat [Joint Support Complex] 083-622-80-0.5 mg capsule 1 cap PO DAILY RF: 0 coenzyme Q10 [Co Q-10] 200 mg capsule 200 mg PO QDAY RF: 0 losartan-hydrochlorothiazide 50-12.5 mg tablet 1 tab PO DAILY RF: 0 Eliquis 2.5 mg tablet 2.5 mg PO DAILY RF: 0 cyanocobalamin (vitamin B-12) 500 MCG tablet 500 mcg PO DAILY RF: 0 cholecalciferol (vitamin D3) 1,000 UNIT capsule 1,000 unit PO DAILY RF: 0 levothyroxine 100 MCG tablet 100 mcg PO DAILY RF: 0 metformin 1,000 MG tablet 500 mg PO TID RF: 0 furosemide 20 mg tablet 20 mg PO DAILY RF: 0 Discontinued metoprolol tartrate 50 mg tablet 50 mg PO DAILY RF: 0 Referrals / Follow Up: Efrain Corbin MD [Primary Care Provider] - Within 2 Weeks Disposition Disposition (needs filled in before D/C Order can be placed): [facility] Charges/Coding Visit Charges OBSV E&M: 54783 Observation care discharge
--- NOTE | 2021-09-10 13:39 | TREXTCAR_ITS ---
Diet 09/09/21 20:57 Diet: Consistent Carb - Calorie Controlled Food consistency:: Regular Liquid Consistency:: Regular/Thin How many daily calories?: 1800 calorie Routine Orders/Code Status Code Status: DNRCC-A Therapies Physical Therapy: Eval and Treat Occupational Therapy: Eval and Treat Problem/Diagnosis (1) Fall: Status: Acute (2) Failure to thrive in adult: Status: Acute Allergies/Procedures Done in Hospital Allergies Penicillins Allergy (Severe, Verified 09/09/21 14:31) Unknown red dye Allergy (Severe, Verified 09/09/21 14:31) Unknown Type of Care/Length of Stay Estimated LOS: Convalescent Care Less Than 30 days Type of Care Needed: Skilled Rehab Potential: Good Prognosis: Good Additional Orders/Day of Discharge Day of Discharge: 09/10/21 Discharge Plan Admission Admit Date/Time: 09/09/21 19:35 Attending Provider: Mainor Zaidi Primary Care Provider: Efrain Corbin Discharge Orders/Prescriptions Prescriptions: New acetaminophen [Tylenol] 325 mg Tablet 650 mg PO Q4H PRN PRN (Reason: Fever, pain -08/31) Qty: 0 RF: 0 melatonin 3 mg Tablet 3 mg PO QHS PRN PRN (Reason: Insomnia) Qty: 0 RF: 0 Arthritis Pain Compound 0 click topical BID Qty: 0 RF: 0 bisacodyl 5 mg Tablet,Delayed Release (Dr/Ec) 5 mg PO DAILY PRN PRN (Reason: Constipation) Qty: 0 RF: 0 alum-mag hydroxide-simeth [Mag-Al Plus Extra Strength] 400-400-40 mg/5 mL Suspension 30 ml PO Q6H PRN PRN (Reason: Gastric Burning) Qty: 0 RF: 0 insulin lispro [Humalog KwikPen Insulin] 100 unit/mL Insulin Pen See Protocol unit subcut ACHS Qty: 0 RF: 0 oxycodone 5 mg capsule 5 mg PO Q6H PRN (Reason: pain) 2 Days Qty: 8 RF: 0 Continued auupe-kgu-G-lprch-xjjs-gjh [Joint Support Complex] 988-298-03-0.5 mg capsule 1 cap PO DAILY RF: 0 coenzyme Q10 [Co Q-10] 200 mg capsule 200 mg PO QDAY RF: 0 losartan-hydrochlorothiazide 50-12.5 mg tablet 1 tab PO DAILY RF: 0 Eliquis 2.5 mg tablet 2.5 mg PO DAILY RF: 0 cyanocobalamin (vitamin B-12) 500 MCG tablet 500 mcg PO DAILY RF: 0 cholecalciferol (vitamin D3) 1,000 UNIT capsule 1,000 unit PO DAILY RF: 0 levothyroxine 100 MCG tablet 100 mcg PO DAILY RF: 0 metformin 1,000 MG tablet 500 mg PO TID RF: 0 furosemide 20 mg tablet 20 mg PO DAILY RF: 0 Discontinued metoprolol tartrate 50 mg tablet 50 mg PO DAILY RF: 0 Referrals / Follow Up: Efrain Corbin MD [Primary Care Provider] - Within 2 Weeks Disposition Disposition (needs filled in before D/C Order can be placed): Senior Living Facility
--- NOTE | 2021-09-10 14:30 | CASEMGMT ---
Social Work [facility] does have a bed available. Referral faxed and [facility] is able to accept pt today. Physician notified and pt is ready for d/c today. SW notified pt and dgt of above. Dgt states pt has not been vaccinated and SW explained limitations of visitation at [facility] due to 14 day quarantine. Transportation arranged with [facility] ambulance for 1600 pickup via cot. Nursing, pt, pt dgt and [facility] at [facility] notified of d/c time. Orders faxed to [facility]. PassRR completed in the [employer] system. Plan: [facility] skilled care under convalescent stay. VINNY Boggs
[2021-09-10 14:33] VITALS: O2SAT 94
--- NOTE | 2021-09-10 15:55 | NURSING ---
report called to [facility] to nurse and no questions voiced. ecf packet completed and ready for transfer. daughter left and aware of transfer time.
== END 2021-09-10 16:13 | disposition skilled nursing facility (03) ==
LOC: ED 20:02 → MS2 20:31
PROVIDERS: Admitting Provider Family Medicine; Emergency Provider Emergency Medicine; PCP Family Medicine; Visit Provider Internal Medicine
DX: R62.7 Adult failure to thrive (principal); Z68.32 Body mass index [BMI] 32.0-32.9, adult; H91.90 Unspecified hearing loss, unspecified ear; E11.40 Type 2 diabetes mellitus with diabetic neuropathy, unspecified; E78.5 Hyperlipidemia, unspecified; E03.9 Hypothyroidism, unspecified; I11.0 Hypertensive heart disease with heart failure; I50.22 Chronic systolic (congestive) heart failure; R29.6 Repeated falls; I42.8 Other cardiomyopathies; M19.072 Primary osteoarthritis, left ankle and foot; D63.8 Anemia in other chronic diseases classified elsewhere; E66.9 Obesity, unspecified; I48.11 Longstanding persistent atrial fibrillation; I27.21 Secondary pulmonary arterial hypertension; R53.1 Weakness; F32.A Depression, unspecified; F41.9 Anxiety disorder, unspecified; Z79.899 Other long term (current) drug therapy; Z79.01 Long term (current) use of anticoagulants; Z79.84 Long term (current) use of oral hypoglycemic drugs; Z79.890 Hormone replacement therapy
CPT/HCPCS: 36415; 70450; 72170; 73564; 73630; 80053; 82962; 83735; 84443; 85025; 87426; 97162; 97166; 99218; 99251; 99285; A4216; G0378; G0463

== ENCOUNTER → 2021-10-06 14:33 | Outpatient (CLI) | payer MEDICARE, OTHER, SELFPAY ==
[2021-10-06 18:05] LABS: Absolute Lymphocyte Count 1.78 X10^3/uL (0.83-4.51); Absolute Neutrophil Count 4.7 X10^3/uL (2.0-7.7); Basophil# 0.04 X10^3/uL; Basophil% 0.5 % (0-1); Eosinophil# 0.18 X10^3/uL; Eosinophils% 2.4 % (0-5); Hematocrit 34.5 % (37-47); Hemoglobin 10.6 g/dL (12.0-15.0); Lymphocyte # 1.78 X10^3/ul (0.83-4.51); Mean Corp Hgb Conc 30.7 g/dL (32-36); Mean Corpuscular Hgb 28.4 pg (27.0-32.0); Mean Corpuscular Volume 92.5 fL (81-99); Mean Platelet Vol. 10.1 fl (6.2-12.0); Monocyte# 0.66 X10^3/uL; Monocyte% 8.9 % (0-10); NRBC Flagged by Analyzer 0 % (0-5); Neutrophil # 4.73 X10^3/uL (2.7-7.7); Neutrophil % 63.8 % (47-70); Platelet Count 247 K/mm3 (150-450); RBC Distribution Width SD 54.7 fl (35.1-43.9); Red Blood Count 3.73 M/mm3 (4.2-5.4); White Blood Count 7.4 K/mm3 (4.4-11.0)
[2021-10-06 18:45] LABS: ALB/GLOB Ratio 0.9 RATIO (0.9-2.4); AST(SGOT) 20 U/L (15-37); Alanine Aminotransfer ALT/SGPT 22 U/L (13-56); Albumin, Serum 3.7 g/dL (3.2-5.0); Alkaline Phosphatase 79 U/L (45-117); Anion Gap 5 (5-15); BUN 18 mg/dL (7-18); BUN/Creat Ratio 18.3 RATIO (10-20); Chloride 105 mmol/L (98-107); Creatinine, Serum 0.98 mg/dL (0.55-1.02); EST Glomerular Filtration Rate 57 mL/min (>60); Est Glom Filt Rate - Afr Amer 69 mL/min (>60); Globulin 4.2 g/dL (2.2-4.2); Glucose 106 mg/dL (74-106); Potassium 4.3 mmol/L (3.5-5.1); Protein, Total 7.9 g/dL (6.4-8.2); Sodium Level 140 mmol/L (136-145)
== END ==
PROVIDERS: PCP Family Medicine; Referring Provider Family Medicine; Visit Provider Family Medicine
DX: K92.2 Gastrointestinal hemorrhage, unspecified (principal)
CPT/HCPCS: 36415; 80053; 85025

== ENCOUNTER 2021-12-31 15:19 | Emergency (ER) | payer MEDICARE, OTHER, SELFPAY ==
[2021-12-31 15:20] VITALS: RESP 16; TEMP 37.1; BMI 27.8
[2021-12-31 15:27] VITALS: BP 114/35; PULSE 63; RESP 16; O2SAT 95
[2021-12-31 15:28] VITALS: BP 112/55; PULSE 61
--- NOTE | 2021-12-31 15:54 | RAD_ITS ---
STUDY: X-RAY - RIGHT SHOULDER REASON FOR EXAM: Female, 86 years old. shoulder pain LARGE AMOUNT OF BRUISING, NKI TECHNIQUE: 4 view(s) of the shoulder. COMPARISON: None. FINDINGS: There is severe degenerative arthrosis of the glenohumeral articulation. Normal acromioclavicular joint. Normal acromion. Normal humeral head and visualized proximal humerus. The soft tissue structures are unremarkable. There is no demonstrated fracture. Normal visualized pulmonary apex. RAD/Shoulder min 2 Views IMPRESSION: Degenerative changes of the shoulder. Electronically Signed: Dominik Cuello MD at 16:11 EST ,
--- NOTE | 2021-12-31 16:46 | EDS_ITS ---
HPI History of Present Illness Chief Complaint: Upper Extremity Injury Narrative Narrative: 86-year-old female presenting with nontraumatic arm pain and bruising. She states the pain is minimal and she was able to put on her shoes and socks today without any difficulty. She does state that she has noticed some catching in the right arm when she tries to flex her arm and she feels a catch at the distal area of the biceps this is where she points. Patient states that about a week ago she was reaching across her body and she felt something pop and now she has bruising in her arm extending from the right anterior part of her deltoid down into her arm circumferentially. She has noted that the bruising has descended down her upper arm. Patient is on Eliquis 2.5 mg p.o. twice daily for atrial fibrillation. [facility] Medical History Afib Cataracts, bilateral Essential (primary) hypertension Failure to thrive in adult Gallstones Hyperlipidemia Hypothyroid IBS (irritable bowel syndrome) Longstanding persistent atrial fibrillation Non-ischemic cardiomyopathy Non-rheumatic tricuspid valve insufficiency Nonrheumatic aortic (valve) stenosis Obesity Osteoarthritis Seasonal allergies Secondary pulmonary arterial hypertension Type 2 diabetes, controlled, with neuropathy Home Medications coenzyme Q10 200 mg capsule 200 mg PO QDAY 11/18/17 [History Last Taken 09/09/21] glucosamine 500 mg-msm 100 mg-vit C 20 wz-elwqp-tdob-primrose capsule 1 cap PO DAILY 11/18/17 [History Last Taken 09/09/21] cholecalciferol (vitamin D3) 1,000 unit PO DAILY 03/26/18 [History Last Taken 09/09/21] cyanocobalamin (vitamin B-12) 500 mcg PO DAILY 03/26/18 [History Last Taken 09/09/21] levothyroxine 100 mcg PO DAILY 05/20/19 [History Last Taken 09/09/21] metformin 500 mg PO TID 05/20/19 [History Last Taken 09/09/21] apixaban 2.5 mg tablet 2.5 mg PO DAILY 03/17/21 [History Last Taken 09/09/21] Arthritis Pain Compound 0 click TOPICAL BID #0 09/10/21 [Rx Last Taken Unknown] acetaminophen [Tylenol] 650 mg PO Q4H PRN PRN #0 tab 09/10/21 [Rx Last Taken Unknown] alum-mag hydroxide-simeth [Mag-Al Plus Extra Strength] 30 ml PO Q6H PRN PRN #0 ml 09/10/21 [Rx Last Taken Unknown] bisacodyl 5 mg PO DAILY PRN PRN #0 tab 09/10/21 [Rx Last Taken Unknown] insulin lispro [Humalog KwikPen Insulin] See Protocol SUBCUT ACHS #0 ml 09/10/21 [Rx Last Taken Unknown] melatonin 3 mg PO QHS PRN PRN #0 tab 09/10/21 [Rx Last Taken Unknown] oxycodone 5 mg PO Q6H PRN 2 Days #8 cap 09/10/21 [Rx Last Taken Unknown] metoprolol tartrate 50 mg tablet 50 mg PO DAILY tab 11/11/21 [History Last Taken Unknown] furosemide 40 mg tablet 40 mg PO DAILY #90 tab 11/12/21 [Rx Last Taken Unknown] losartan 100 mg-hydrochlorothiazide 25 mg tablet 1 tab PO DAILY #90 tab 11/12/21 [Rx Last Taken Unknown] Allergy/AdvReac Type Severity Reaction Status Date / Time Penicillins Allergy Severe Unknown Verified 12/31/21 15:20 red dye Allergy Severe Unknown Verified 12/31/21 15:20 Family History Grandmother Cancer CVA (cerebral vascular accident) Mother Diabetes Heart disease Father Heart disease Surgical History History of total abdominal hysterectomy Hx of cholecystectomy Social History household members: none Smoking Status: Never smoker second hand exposure: No alcohol intake: never substance use type: does not use ROS ROS ED Constitutional Constitutional ED: Denies chills or fever(s) Eyes Eyes: Denies blurry vision or change in vision ENT ENT ED: Denies rhinorrhea Cardiovascular Cardiovascular: Denies chest pain or palpitations Respiratory/Chest Respiratory/Chest: Denies cough or dyspnea Gastrointestinal Gastrointestinal: Denies abdominal pain Genitourinary Genitourinary ED: Denies dysuria or hematuria Musculoskeletal Musculoskeletal: Denies myalgias or neck pain Integumentary Reports other Details: Bruising to right arm ; Denies Abrasions or rash Neurologic Neurologic: Denies headache(s) EXAM Physical Exam Const Vital Signs: 12/31/21 15:20 12/31/21 15:27 12/31/21 15:28 Temperature 98.8 F Temperature Source Oral Pulse Rate 63 61 Respiratory Rate 16 16 Blood Pressure 114/35 L 112/55 L Blood Pressure Mean 61 74 Pulse Ox 95 Oxygen Delivery Method Room Air Room Air Positive well nourished General Appearance ED: NAD HEENT normocephalic and atraumatic Eyes PERRL and EOMs intact bilaterally Resp normal respiratory effort and clear to auscultation bilaterally Cardio regular rate and regular rhythm Extremity Extremity Narrative: Tenderness to palpation over the proximal biceps laterally. There is a small bulge in this region. Patient has maintained flexion and ex tension of the arm at the elbow. She has maintained pronation and supination. She is able to flex and extend her shoulder as well as Abduct and adduct. Neuro oriented x3, CN's II-XII intact bilaterally, moves all extremities, no focal motor deficits and no sensory deficits noted Sensorium / Orientation: alert Psych mental status grossly normal Skin Skin Narrative: Bruising noted circumferentially over the upper arm Rashes: no rashes MDM MDM MDM Narrative Medical decision making narrative: On examination the patient appears to have a biceps rupture which is distal. She has a bulge proximally adjacent to the deltoid. There is minimal tenderness she has maintained range of motion. I did obtain a right shoulder x-ray and on my interpretation there are no acute fractures or subluxations. Spoke with Dr. Martines regarding the patient and he recommended Tom wrap and follow-up with his office but did not think she would need surgical repair. This was discussed with the patient. She is discharged home in stable condition. Impression: 1. Biceps tendon rupture Radiography Diagnostic Testing: Clinical Impression(s) from Imaging Studies Shoulder X-Ray 12/31/21 15:54 IMPRESSION: Degenerative changes of the shoulder. Electronically Signed: Dominik Cuello MD at 16:11 EST Reading Location ID and State: [address] [place] [address] , Service support , Discharge Plan Triage Chief Complaint: Upper Extremity Injury Other Complaint: Wound Check ED Provider: Braulio,Chapito Dx/Rx/DC Orders Clinical Impression: Biceps rupture, distal Instructions: ED Muscle Strain, Extremity Prescriptions: No Action [id number] [Joint Support Complex] [id number] mg capsule 1 cap PO DAILY RF: 0 coenzyme Q10 [Co Q-10] 200 mg capsule 200 mg PO QDAY RF: 0 Eliquis 2.5 mg tablet 2.5 mg PO DAILY RF: 0 metoprolol tartrate 50 mg tablet 50 mg PO DAILY RF: 0 cyanocobalamin (vitamin B-12) 500 MCG tablet 500 mcg PO DAILY RF: 0 cholecalciferol (vitamin D3) 1,000 UNIT capsule 1,000 unit PO DAILY RF: 0 levothyroxine 100 MCG tablet 100 mcg PO DAILY RF: 0 metformin 1,000 MG tablet 500 mg PO TID RF: 0 acetaminophen [Tylenol] 325 mg Tablet 650 mg PO Q4H PRN PRN (Reason: Fever, pain -08/31) Qty: 0 RF: 0 melatonin 3 mg Tablet 3 mg PO QHS PRN PRN (Reason: Insomnia) Qty: 0 RF: 0 Arthritis Pain Compound 0 click topical BID Qty: 0 RF: 0 bisacodyl 5 mg Tablet,Delayed Release (Dr/Ec) 5 mg PO DAILY PRN PRN (Reason: Constipation) Qty: 0 RF: 0 alum-mag hydroxide-simeth [Mag-Al Plus Extra Strength] 400-400-40 mg/5 mL Suspension 30 ml PO Q6H PRN PRN (Reason: Gastric Burning) Qty: 0 RF: 0 insulin lispro [Humalog KwikPen Insulin] 100 unit/mL Insulin Pen See Protocol unit subcut ACHS Qty: 0 RF: 0 oxycodone 5 mg capsule 5 mg PO Q6H PRN (Reason: pain) 2 Days Qty: 8 RF: 0 losartan-hydrochlorothiazide 100-25 mg tablet 1 tab PO DAILY Qty: 90 RF: 3 furosemide 40 mg tablet 40 mg PO DAILY Qty: 90 RF: 3 Primary Care Provider: Efrain Corbin Referrals: Ortega Martines DO [STAFF PHYSICIAN] - Efrain Corbin MD [Primary Care Provider] - Disposition Disposition: Home, Self Care
== END 2021-12-31 16:55 | disposition home or self-care (01) ==
PROVIDERS: Emergency Provider Student in an Organized Health Care Education/Training Program; PCP Family Medicine; Visit Provider Student in an Organized Health Care Education/Training Program
DX: M66.821 Spontaneous rupture of other tendons, right upper arm (principal); I42.8 Other cardiomyopathies; I27.21 Secondary pulmonary arterial hypertension; E11.40 Type 2 diabetes mellitus with diabetic neuropathy, unspecified; I48.11 Longstanding persistent atrial fibrillation; Z79.4 Long term (current) use of insulin; I10 Essential (primary) hypertension; I08.2 Rheumatic disorders of both aortic and tricuspid valves; E78.5 Hyperlipidemia, unspecified; E03.9 Hypothyroidism, unspecified; M19.90 Unspecified osteoarthritis, unspecified site; E66.9 Obesity, unspecified; Z68.27 Body mass index [BMI] 27.0-27.9, adult; Z79.01 Long term (current) use of anticoagulants; Z79.84 Long term (current) use of oral hypoglycemic drugs; Z79.899 Other long term (current) drug therapy
CPT/HCPCS: 73030; 99285

== ENCOUNTER 2022-02-03 14:08 | Emergency (ER) | payer MEDICARE, OTHER, SELFPAY ==
[2022-02-03 14:09] VITALS: BP 129/89; PULSE 60; RESP 16; TEMP 37.1; O2SAT 98; BMI 29.5
--- NOTE | 2022-02-03 14:41 | RAD_ITS ---
INDICATION: pain EXAMINATION/TECHNIQUE: X-RAY - RIGHT XR Knee Complete 4 Views or More 4 VIEWS COMPARISON: None. FINDINGS/ RAD/Knee 4 or More Views IMPRESSION: Severe medial and lateral compartment osteoarthritis. Moderate to severe patellofemoral osteoarthritis. Soft tissue swelling overlying the medial aspect of the knee joint. Large joint effusion. However, no definite fracture is identified. No dislocation. Vascular calcifications. Electronically Signed: Kieran Guan, at 15:14 EDT ,
--- NOTE | 2022-02-03 14:41 | EDS_ITS ---
HPI History of Present Illness Chief Complaint: Lower Extremity Injury Detail of Chief Complaint: Right knee pain, no injury Informant: patient and family Onset/Context/Timing Onset: Today Current Severity: Mild Maximum Severity: Moderate Narrative Narrative: Patient presents via EMS secondary to right knee pain and inability to ambulate. Patient reportedly had physical therapy in her home yesterday which she does on a weekly basis. Today she was complaining of right knee pain. There was no reported fall. Patient states that she is able to stand on her leg however when trying to walk has severe right knee pain. She did take Tylenol prior to arrival. Patient does live alone. [facility] Medical History Afib Cataracts, bilateral Essential (primary) hypertension Failure to thrive in adult Gallstones Hyperlipidemia Hypothyroid IBS (irritable bowel syndrome) Longstanding persistent atrial fibrillation Non-ischemic cardiomyopathy Non-rheumatic tricuspid valve insufficiency Nonrheumatic aortic (valve) stenosis Obesity Osteoarthritis Seasonal allergies Secondary pulmonary arterial hypertension Type 2 diabetes, controlled, with neuropathy Home Medications coenzyme Q10 200 mg capsule 200 mg PO QDAY 11/18/17 [History Last Taken 09/09/21] glucosamine 500 mg-msm 100 mg-vit C 20 em-uucng-fwaq-primrose capsule 1 cap PO DAILY 11/18/17 [History Last Taken 09/09/21] cholecalciferol (vitamin D3) 1,000 unit PO DAILY 03/26/18 [History Last Taken 09/09/21] cyanocobalamin (vitamin B-12) 500 mcg PO DAILY 03/26/18 [History Last Taken 09/09/21] levothyroxine 100 mcg PO DAILY 05/20/19 [History Last Taken 09/09/21] metformin 500 mg PO TID 05/20/19 [History Last Taken 09/09/21] apixaban 2.5 mg tablet 2.5 mg PO DAILY 03/17/21 [History Last Taken 09/09/21] Arthritis Pain Compound 0 click TOPICAL BID #0 09/10/21 [Rx Last Taken Unknown] acetaminophen [Tylenol] 650 mg PO Q4H PRN PRN #0 tab 09/10/21 [Rx Last Taken Unknown] alum-mag hydroxide-simeth [Mag-Al Plus Extra Strength] 30 ml PO Q6H PRN PRN #0 ml 09/10/21 [Rx Last Taken Unknown] bisacodyl 5 mg PO DAILY PRN PRN #0 tab 09/10/21 [Rx Last Taken Unknown] insulin lispro [Humalog KwikPen Insulin] See Protocol SUBCUT ACHS #0 ml 09/10/21 [Rx Last Taken Unknown] melatonin 3 mg PO QHS PRN PRN #0 tab 09/10/21 [Rx Last Taken Unknown] oxycodone 5 mg PO Q6H PRN 2 Days #8 cap 09/10/21 [Rx Last Taken Unknown] furosemide 20 mg tablet 20 mg PO DAILY #30 tab 01/26/22 [Rx Last Taken Unknown] losartan 100 mg-hydrochlorothiazide 25 mg tablet 1 tab PO DAILY #30 tab 01/26/22 [Rx Last Taken Unknown] metoprolol tartrate 50 mg tablet 50 mg PO DAILY #30 tab 01/26/22 [Rx Last Taken Unknown] Allergy/AdvReac Type Severity Reaction Status Date / Time Penicillins Allergy Severe Unknown Verified 02/03/22 14:16 red dye Allergy Severe Unknown Verified 02/03/22 14:16 Family History Grandmother Cancer CVA (cerebral vascular accident) Mother Diabetes Heart disease Father Heart disease Surgical History History of total abdominal hysterectomy Hx of cholecystectomy Social History household members: none Smoking Status: Never smoker second hand exposure: No alcohol intake: never substance use type: does not use ROS ROS ED Constitutional Constitutional ED: Denies chills or fever(s) Eyes Eyes: Denies change in vision ENT ENT ED: Denies sore throat Cardiovascular Cardiovascular: Denies chest pain Respiratory/Chest Respiratory/Chest: Denies cough or dyspnea Gastrointestinal Gastrointestinal: Denies abdominal pain, nausea or vomiting Musculoskeletal Musculoskeletal: Reports arthralgias; Denies back pain Integumentary Denies rash Neurologic Neurologic: Denies headache(s) or weakness Allergic/Immunologic Allergic/Immunologic ED: Denies urticaria EXAM Physical Exam Const Vital Signs: 02/03/22 14:09 Temperature 98.8 F Temperature Source Oral Pulse Rate 60 Respiratory Rate 16 Blood Pressure 129/89 H Blood Pressure Mean 102 Pulse Ox 98 Oxygen Delivery Method Room Air Positive well nourished and well developed General Appearance ED: well developed HEENT Reports moist mucous membranes Eyes PERRL and EOMs intact bilaterally Neck supple Chest Wall inspection of chest normal and palpation of chest normal Resp normal respiratory effort and clear to auscultation bilaterally Cardio regular rate and regular rhythm GI non-tender Palpation: soft Extremity Extremity Narrative: No focal tenderness with palpation of the right lower extremity. No erythema or warmth over the knee. Patient able to flex and extend her knee as well as rotate at the hip without difficulty. Neuro oriented x3 Sensorium / Orientation: alert Psych mental status grossly normal Skin no rashes or lesions noted MDM MDM MDM Narrative Medical decision making narrative: Patient had taken Tylenol just prior to arrival. Right knee x-rays are obtained. Radiography Diagnostic Testing: Clinical Impression(s) from Imaging Studies Knee X-Ray 02/03/22 14:41 IMPRESSION: Severe medial and lateral compartment osteoarthritis. Moderate to severe patellofemoral osteoarthritis. Soft tissue swelling overlying the medial aspect of the knee joint. Large joint effusion. However, no definite fracture is identified. No dislocation. Vascular calcifications. Electronically Signed: Kieran Guan, at 15:14 EDT , Treatment and Re-Evaluation Narrative: Knee x-ray per my interpretation reveals severe arthritis. No obvious fracture. Radiology to rotation is reviewed and concurs. Nursing staff got the patient up. She was able to stand with a walker but was unable to walk. She does live alone and will require placement. I spoke with hospitalist as well as social work. They were able to arrange patient to go directly from the ED to the local halfway for therapy. Patient to be admitted for physical and occupational therapy evaluation and treatment. Discharge Plan Triage Chief Complaint: Lower Extremity Injury ED Provider: Jacqueline Prince Dx/Rx/DC Orders Clinical Impression: Right knee sprain, Unable to ambulate Instructions: ED Knee Sprain Prescriptions: No Action [id number]-[id number] [Joint Support Complex] [id number] mg capsule 1 cap PO DAILY RF: 0 coenzyme Q10 [Co Q-10] 200 mg capsule 200 mg PO QDAY RF: 0 Eliquis 2.5 mg tablet 2.5 mg PO DAILY RF: 0 cyanocobalamin (vitamin B-12) 500 MCG tablet 500 mcg PO DAILY RF: 0 cholecalciferol (vitamin D3) 1,000 UNIT capsule 1,000 unit PO DAILY RF: 0 levothyroxine 100 MCG tablet 100 mcg PO DAILY RF: 0 metformin 1,000 MG tablet 500 mg PO TID RF: 0 acetaminophen [Tylenol] 325 mg Tablet 650 mg PO Q4H PRN PRN (Reason: Fever, pain 1-08/31) Qty: 0 RF: 0 melatonin 3 mg Tablet 3 mg PO QHS PRN PRN (Reason: Insomnia) Qty: 0 RF: 0 Arthritis Pain Compound 0 click topical BID Qty: 0 RF: 0 bisacodyl 5 mg Tablet,Delayed Release (Dr/Ec) 5 mg PO DAILY PRN PRN (Reason: Constipation) Qty: 0 RF: 0 alum-mag hydroxide-simeth [Mag-Al Plus Extra Strength] 400-400-40 mg/5 mL Suspension 30 ml PO Q6H PRN PRN (Reason: Gastric Burning) Qty: 0 RF: 0 insulin lispro [Humalog KwikPen Insulin] 100 unit/mL Insulin Pen See Protocol unit subcut ACHS Qty: 0 RF: 0 oxycodone 5 mg capsule 5 mg PO Q6H PRN (Reason: pain) 2 Days Qty: 8 RF: 0 furosemide 20 mg tablet 20 mg PO DAILY Qty: 30 RF: 11 losartan-hydrochlorothiazide 100-25 mg tablet 1 tab PO DAILY Qty: 30 RF: 11 metoprolol tartrate 50 mg tablet 50 mg PO DAILY Qty: 30 RF: 11 Primary Care Provider: Efrain Corbin Referrals: Efrain Corbin MD [Primary Care Provider] - Disposition Disposition: Prison Facility Discharge Location: [facility]
--- NOTE | 2022-02-03 15:24 | ED.RN ---
PT. WAS ABLE TO BEAR WEIGHT, BUT UNABLE TO TAKE ANY STEPS WITH WALKER.
--- NOTE | 2022-02-03 16:03 | CM.ED ---
Social Work Consult: prison placement Referral source: Dr. Prince Met with patient and patient daughter in room. This social work job titles introduced self and social work job titles role. Patient agreeable to speak with this social work job titles. Patient is agreeable to senior living placement. Patient first choice is [facility], second is [facility] and third choice is [facility]. This social work job titles provided patient with list of in-network nursing facilities that are local to patient geographical region. Telephone call to [facility]. No open beds. [facility]. [facility] to [facility] reports to have open beds. Clinical information faxed. [facility] reports to be able to accept patient from ED. PLAN: prison placement. Will continue to follow. Jose L MAHAN, HUMBERTO
--- NOTE | 2022-02-03 17:27 | CM.ED ---
Social [facility]. This professor of social work updated patient on above information. Patient daughter no longer present. This professor of social work reviewed chart, patient grandsonCollins is HCPOA. Patient daughter information is not listed on chart. Telephone call to [facility]. This professor of social work updated [facility] on above information. [facility] states to not be able to provide transportation and will need ED to set up transportation. This professor of social work updated medical team on above information. [employer] to set up transportation for patient. PLAN: [facility]. Will continue to follow. Jose L MAHAN, HUMBERTO
--- NOTE | 2022-02-03 17:36 | NURSING ---
CALLED [facility], ETA IS 30 MIN
--- NOTE | 2022-02-03 17:45 | CM.ED ---
Social Work PASRR completed and faxed to [facility] along with discharge information and COVID-19 test results. PLAN: [facility]. No further services indicated or requested. Jose L MAHAN, DURGAS
[2022-02-03 18:15] VITALS: BP 128/58; PULSE 74; RESP 20; O2SAT 98
== END 2022-02-03 18:18 | disposition skilled nursing facility (03) ==
PROVIDERS: Emergency Provider Emergency Medicine; PCP Family Medicine; Visit Provider Emergency Medicine
DX: S83.91XA Sprain of unspecified site of right knee, initial encounter (principal); I42.8 Other cardiomyopathies; E11.40 Type 2 diabetes mellitus with diabetic neuropathy, unspecified; I48.11 Longstanding persistent atrial fibrillation; Z79.4 Long term (current) use of insulin; R26.2 Difficulty in walking, not elsewhere classified; R62.7 Adult failure to thrive; M17.11 Unilateral primary osteoarthritis, right knee; E78.5 Hyperlipidemia, unspecified; I10 Essential (primary) hypertension; E66.9 Obesity, unspecified; Z68.29 Body mass index [BMI] 29.0-29.9, adult; Z79.84 Long term (current) use of oral hypoglycemic drugs; Z79.899 Other long term (current) drug therapy
CPT/HCPCS: 73564; 87811; 99284

== ENCOUNTER → 2022-03-19 | Outpatient (CLI) | payer MEDICARE, OTHER, SELFPAY ==
[2022-03-19 12:13] LABS: Absolute Lymphocyte Count 1.53 X10^3/uL (0.83-4.51); Absolute Neutrophil Count 4.8 X10^3/uL (2.0-7.7); Basophil# 0.05 X10^3/uL; Basophil% 0.7 % (0-1); Eosinophils% 1.4 % (0-5); Hematocrit 32.9 % (37-47); Hemoglobin 10.4 g/dL (12.0-15.0); Lymphocyte # 1.53 X10^3/ul (0.83-4.51); Lymphocyte % 21.8 % (19-41); Mean Corp Hgb Conc 31.6 g/dL (32-36); Mean Corpuscular Hgb 30.2 pg (27.0-32.0); Mean Corpuscular Volume 95.6 fL (81-99); Mean Platelet Vol. 10.3 fl (6.2-12.0); Monocyte# 0.47 X10^3/uL; Monocyte% 6.7 % (0-10); NRBC Flagged by Analyzer 0 % (0-5); Neutrophil # 4.84 X10^3/uL (2.7-7.7); Neutrophil % 68.8 % (47-70); Platelet Count 233 K/mm3 (150-450); RBC Distribution Width CV 15.1 % (11.6-14.6); RBC Distribution Width SD 53.1 fl (35.1-43.9); Red Blood Count 3.44 M/mm3 (4.2-5.4)
[2022-03-19 12:45] LABS: Hemoglobin A1c 6.3 % (3.8-5.6)
[2022-03-19 13:09] LABS: Anion Gap 5 (5-15); BUN 31 mg/dL (7-18); BUN/Creat Ratio 19.6 RATIO (10-20); Calcium,Total 10.1 mg/dL (8.5-10.1); Chloride 102 mmol/L (98-107); Cholesterol 205 mg/dL (200); Creatinine, Serum 1.58 mg/dL (0.55-1.02); EST Glomerular Filtration Rate 33 mL/min (>60); Est Glom Filt Rate - Afr Amer 40 mL/min (>60); Free T3 4.6 pg/mL (2.18-3.98); Glucose 133 mg/dL (74-106); High Density Lipoprotein 74 mg/dL; Potassium 4.2 mmol/L (3.5-5.1); Sodium Level 138 mmol/L (136-145); T4 Free Direct 1.46 ng/dL (0.76-1.46); Thyroid Stim Hormone (TSH) 1.81 uIU/mL (0.358-3.74); Triglycerides 88 mg/dL; Very Low Density Lipoprotein 18 mg/dL (5-40)
== END | disposition home or self-care (01) ==
LOC: MFPLAB 10:09
PROVIDERS: PCP Family Medicine; Referring Provider Family Medicine; Visit Provider Family Medicine
DX: I48.91 Unspecified atrial fibrillation (principal); D64.9 Anemia, unspecified; E03.9 Hypothyroidism, unspecified
CPT/HCPCS: 36415; 80048; 80061; 83036; 84439; 84443; 84481; 85025

== ENCOUNTER → 2022-06-10 | Outpatient (CLI) | payer MEDICARE, OTHER, SELFPAY ==
[2022-06-10 17:55] LABS: Absolute Lymphocyte Count 1.07 X10^3/uL (0.83-4.51); Absolute Neutrophil Count 4.4 X10^3/uL (2.0-7.7); Basophil# 0.04 X10^3/uL; Basophil% 0.6 % (0-1); Eosinophil# 0.17 X10^3/uL; Eosinophils% 2.8 % (0-5); Hematocrit 33.9 % (37-47); Hemoglobin 10.3 g/dL (12.0-15.0); Lymphocyte # 1.07 X10^3/ul (0.83-4.51); Lymphocyte % 17.3 % (19-41); Mean Corp Hgb Conc 30.4 g/dL (32-36); Mean Corpuscular Hgb 28.8 pg (27.0-32.0); Mean Corpuscular Volume 94.7 fL (81-99); Mean Platelet Vol. 10.3 fl (6.2-12.0); Monocyte# 0.52 X10^3/uL; Monocyte% 8.4 % (0-10); NRBC Flagged by Analyzer 0 % (0-5); Neutrophil # 4.35 X10^3/uL (2.7-7.7); Neutrophil % 70.4 % (47-70); Platelet Count 240 K/mm3 (150-450); RBC Distribution Width CV 14.5 % (11.6-14.6); RBC Distribution Width SD 50.1 fl (35.1-43.9); Red Blood Count 3.58 M/mm3 (4.2-5.4); White Blood Count 6.2 K/mm3 (4.4-11.0)
[2022-06-10 17:58] LABS: Anion Gap 8 (5-15); BUN 27 mg/dL (7-18); BUN/Creat Ratio 19.4 RATIO (10-20); Calcium,Total 10.1 mg/dL (8.5-10.1); Chloride 100 mmol/L (98-107); Creatinine, Serum 1.39 mg/dL (0.55-1.02); EST Glomerular Filtration Rate 38 mL/min (>60); Est Glom Filt Rate - Afr Amer 46 mL/min (>60); Glucose 243 mg/dL (74-106); Potassium 3.9 mmol/L (3.5-5.1); Sodium Level 137 mmol/L (136-145)
[2022-06-10 18:07] LABS: Hemoglobin A1c 6.8 % (3.8-5.6)
== END | disposition home or self-care (01) ==
LOC: MFPLAB 14:54
PROVIDERS: PCP Family Medicine; Referring Provider Family Medicine; Visit Provider Family Medicine
DX: I50.9 Heart failure, unspecified (principal); E11.9 Type 2 diabetes mellitus without complications
CPT/HCPCS: 36415; 80048; 83036; 85025

== ENCOUNTER 2022-08-20 22:19 | Emergency (ER) | payer MEDICARE, OTHER, SELFPAY ==
[2022-08-20 22:20] VITALS: BP 131/69; PULSE 70; RESP 15; TEMP 36.8; O2SAT 99; BMI 27.3
--- NOTE | 2022-08-20 23:29 | EDS_ITS ---
HPI History of Present Illness Chief Complaint: Ear Problem Narrative Narrative: Patient is 87-year-old female with past medical history of hypertension hyperlipidemia and type 2 diabetes. She also has age-related hearing loss and requires hearing aids. She states she has been having sensation of buzzing in both ears intermittently. She reports she saw her family doctor who placed her on a antihistamine to help with congestion but she states that the symptoms have been persistent and she is worried she may have an infection and therefore comes in for evaluation. [facility] Medical History Afib Cataracts, bilateral Essential (primary) hypertension Failure to thrive in adult Gallstones Hyperlipidemia Hypothyroid IBS (irritable bowel syndrome) Longstanding persistent atrial fibrillation Non-ischemic cardiomyopathy Non-rheumatic tricuspid valve insufficiency Nonrheumatic aortic (valve) stenosis Obesity Osteoarthritis Seasonal allergies Secondary pulmonary arterial hypertension Type 2 diabetes, controlled, with neuropathy Home Medications coenzyme Q10 200 mg capsule (Co Q-10) 200 mg PO QDAY 11/18/17 [History Last Taken 09/09/21] glucosamine 500 mg-msm 100 mg-vit C 20 ow-ybmiy-akjk-primrose capsule (Joint Support Complex) 1 cap PO DAILY 11/18/17 [History Last Taken 09/09/21] cholecalciferol (vitamin D3) 25 mcg (1,000 unit) capsule 1,000 unit PO DAILY 03/26/18 [History Last Taken 09/09/21] cyanocobalamin (vitamin B-12) 500 mcg tablet 500 mcg PO DAILY supplement 03/26/18 [History Last Taken 09/09/21] levothyroxine 100 mcg tablet 100 mcg PO DAILY thyroid 05/20/19 [History Last Taken 09/09/21] metformin 1,000 mg tablet 500 mg PO TID diabetes 05/20/19 [History Last Taken 09/09/21] apixaban 2.5 mg tablet (Eliquis) 2.5 mg PO DAILY 03/17/21 [History Last Taken 09/09/21] Arthritis Pain Compound 0 click topical BID ##0 09/10/21 [Rx Last Taken Unknown] acetaminophen 325 mg tablet (Tylenol) 650 mg PO Q4H PRN PRN Fever, pain 1-08/31 #0 tabs 09/10/21 [Rx Last Taken Unknown] aluminum-mag hydroxide-simethicone 400 mg-400 mg-40 mg/5 mL oral susp (Mag-Al Plus Extra Strength) 30 ml PO Q6H PRN PRN Gastric Burning #0 mL 09/10/21 [Rx Last Taken Unknown] bisacodyl 5 mg tablet,delayed release 5 mg PO DAILY PRN PRN Constipation #0 tabs 09/10/21 [Rx Last Taken Unknown] insulin lispro 100 unit/mL subcutaneous pen (Humalog KwikPen (U-100) Insulin) See Protocol subcut ACHS #0 mL 09/10/21 [Rx Last Taken Unknown] melatonin 3 mg tablet 3 mg PO QHS PRN PRN Insomnia #0 tabs 09/10/21 [Rx Last Nguyễn en Unknown] oxycodone 5 mg capsule 5 mg PO Q6H PRN pain 2 days #8 caps 09/10/21 [Rx Last Taken Unknown] furosemide 20 mg tablet 20 mg PO DAILY this is a reduced dose #30 tabs 01/26/22 [Rx Last Taken Unknown] losartan 100 mg-hydrochlorothiazide 25 mg tablet 1 tab PO DAILY #30 tabs 01/26/22 [Rx Last Taken Unknown] metoprolol tartrate 50 mg tablet 50 mg PO DAILY #30 tabs 01/26/22 [Rx Last Taken Unknown] Allergy/AdvReac Type Severity Reaction Status Date / Time Penicillins Allergy Severe Unknown Verified 08/20/22 22:24 red dye Allergy Severe Unknown Verified 08/20/22 22:24 Family History Grandmother Cancer CVA (cerebral vascular accident) Mother Diabetes Heart disease Father Heart disease Surgical History History of total abdominal hysterectomy Hx of cholecystectomy Social History household members: none Smoking Status: Never smoker second hand exposure: No alcohol intake: never substance use type: does not use ROS ROS ED Constitutional Constitutional ED: Denies chills or fever(s) ENT ENT ED: Reports other Details: Bilateral tinnitus ; Denies ear pain or sore throat Cardiovascular Cardiovascular: Denies chest pain Respiratory/Chest Respiratory/Chest: Denies cough or dyspnea Gastrointestinal Gastrointestinal: Denies abdominal pain, diarrhea, nausea or vomiting Genitourinary Genitourinary ED: Denies dysuria Musculoskeletal Musculoskeletal: Denies myalgias or neck pain Integumentary Denies rash Neurologic Neurologic: Denies headache(s) Hematologic/Lymphatic Hematologic/Lymphatic: Reports easy bleeding and easy bruising EXAM Physical Exam Const Vital Signs: 08/20/22 22:20 08/20/22 23:51 Temperature 98.2 F Temperature Source Temporal Pulse Rate 70 78 Respiratory Rate 15 18 Blood Pressure 131/69 H 128/62 H Blood Pressure Mean 89 Pulse Ox 99 Oxygen Delivery Method Room Air Positive well nourished and well developed General Appearance ED: well developed HEENT Reports moist mucous membranes HEENT Narrative: Nasal mucosa is hyperemic and boggy with enlarged inferior nasal turbinates. Bilateral canals are normal as well as TMs without changes to suggest infection or cerumen impaction. No soft tissue changes to suggest malignant otitis externa. No pain with palpation over top the bilateral mastoids Eyes PERRL and EOMs intact bilaterally Neck supple Resp normal respiratory effort and clear to auscultation bilaterally Cardio Rate: other Other Details: Irregularly irregular rhythm with regular rate consistent with past medical history of chronic atrial fibrillation Extremity normal to inspection Neuro oriented x3 and CN's II-XII intact bilaterally Sensorium / Orientation: alert Psych mental status grossly normal Skin no rashes or lesions noted MDM MDM MDM Narrative Medical decision making narrative: Patient presented to the ER with stable vitals. She reported bilateral buzzing in her ears and on exam there is no signs of infection or cerumen impaction. I believe that the patient is experiencing tinnitus secondary to her age and medical comorbidities such as diabetes. However as there is no signs of infection there is no need for work-up or further treatment and she needs to follow-up with her ENT to discuss further treatment options. Discharge Plan Triage Chief Complaint: Ear Problem ED Provider: Fercho Craig Dx/Rx/DC Orders Clinical Impression: Presbycusis of both ears, Bilateral tinnitus, Longstanding persistent atrial fibrillation, Essential (primary) hypertension Instructions: Adjusting to Wearing a Hearing Aid, Tinnitus (Ringing in the Ears) Prescriptions: No Action [id number] [Joint Support Complex] [id number] mg capsule 1 cap PO DAILY coenzyme Q10 [Co Q-10] 200 mg capsule 200 mg PO QDAY Eliquis 2.5 mg tablet 2.5 mg PO DAILY cyanocobalamin (vitamin B-12) 500 MCG tablet 500 mcg PO DAILY cholecalciferol (vitamin D3) 1,000 UNIT capsule 1,000 unit PO DAILY levothyroxine 100 MCG tablet 100 mcg PO DAILY metformin 1,000 MG tablet 500 mg PO TID acetaminophen [Tylenol] 325 mg Tablet 650 mg PO Q4H PRN PRN (Reason: Fever, pain -08/31) Qty: 0 0RF melatonin 3 mg Tablet 3 mg PO QHS PRN PRN (Reason: Insomnia) Qty: 0 0RF Arthritis Pain Compound 0 click topical BID Qty: 0 0RF bisacodyl 5 mg Tablet,Delayed Release (Dr/Ec) 5 mg PO DAILY PRN PRN (Reason: Constipation) Qty: 0 0RF alum-mag hydroxide-simeth [Mag-Al Plus Extra Strength] 400-400-40 mg/5 mL Suspension 30 ml PO Q6H PRN PRN (Reason: Gastric Burning) Qty: 0 0RF insulin lispro [Humalog KwikPen Insulin] 100 unit/mL Insulin Pen See Protocol subcut ACHS Qty: 0 0RF Protocol: 3. Sliding Scale Insulin Med Dosing Condition: 150-189 mg/dl = 1 unit Condition: 190-229 mg/dl = 2 units Condition: 230-269 mg/dl = 3 units Condition: 270-309 mg/dl = 4 units Condition: 310-349 mg/dl = 5 units Condition: 350-399 mg/dl = 6 units Condition: 400-449 mg/dl = 7 units Condition: Greater than 449 call physician Protocol Text: - Use for Total Daily Dose of Insulin 37-55 units - Obsese, infected, or steroid patients MEDIUM DOSING ALGORITHIM oxycodone 5 mg capsule 5 mg PO Q6H PRN (Reason: pain) 2 Days Qty: 8 0RF furosemide 20 mg tablet 20 mg PO DAILY Qty: 30 11RF losartan-hydrochlorothiazide 100-25 mg tablet 1 tab PO DAILY Qty: 30 11RF metoprolol tartrate 50 mg tablet 50 mg PO DAILY Qty: 30 11RF Primary Care Provider: Efrain Corbin Referrals: Kal Craig MD [Med Staff - Active Staff] - 1 Week Efrain Corbin MD [Primary Care Provider] - Activity Restrictions/Additional Instructions: Please discuss with your ENT physician about hearing aids that produce an ambient noise to cancel out the sounds you are currently hearing. Disposition Disposition: Home, Self Care Discharge Date/Time: 08/20/22 23:52
[2022-08-20 23:51] VITALS: BP 128/62; PULSE 78; RESP 18
== END 2022-08-20 23:52 | disposition home or self-care (01) ==
LOC: ED 23:43
PROVIDERS: Emergency Provider Emergency Medicine; PCP Family Medicine; Visit Provider Emergency Medicine
DX: H91.13 Presbycusis, bilateral (principal); E11.40 Type 2 diabetes mellitus with diabetic neuropathy, unspecified; I48.11 Longstanding persistent atrial fibrillation; Z79.4 Long term (current) use of insulin; H93.13 Tinnitus, bilateral; I10 Essential (primary) hypertension; E78.5 Hyperlipidemia, unspecified; E66.9 Obesity, unspecified; Z68.27 Body mass index [BMI] 27.0-27.9, adult; Z79.84 Long term (current) use of oral hypoglycemic drugs; Z79.899 Other long term (current) drug therapy
CPT/HCPCS: 99282

== ENCOUNTER → 2022-12-11 | Outpatient (CLI) | payer MEDICARE, OTHER, SELFPAY ==
[2022-12-11 12:04] LABS: Absolute Neutrophil Count 4.1 X10^3/uL (2.0-7.7); Basophil# 0.04 X10^3/uL; Basophil% 0.6 % (0-1); Eosinophil# 0.15 X10^3/uL; Eosinophils% 2.3 % (0-5); Hematocrit 32.2 % (37-47); Hemoglobin 9.6 g/dL (12.0-15.0); Lymphocyte % 24.8 % (19-41); Mean Corp Hgb Conc 29.8 g/dL (32-36); Mean Corpuscular Hgb 28.7 pg (27.0-32.0); Mean Corpuscular Volume 96.1 fL (81-99); Mean Platelet Vol. 10.2 fl (6.2-12.0); Monocyte% 9.3 % (0-10); NRBC Flagged by Analyzer 0 % (0-5); Neutrophil # 4.05 X10^3/uL (2.7-7.7); Neutrophil % 62.7 % (47-70); Platelet Count 180 K/mm3 (150-450); RBC Distribution Width CV 14.6 % (11.6-14.6); RBC Distribution Width SD 51.6 fl (35.1-43.9); Red Blood Count 3.35 M/mm3 (4.2-5.4); White Blood Count 6.5 K/mm3 (4.4-11.0)
[2022-12-11 12:49] LABS: Anion Gap 9 (5-15); BUN 45 mg/dL (7-18); BUN/Creat Ratio 25.1 RATIO (10-20); Calcium,Total 9.7 mg/dL (8.5-10.1); Chloride 102 mmol/L (98-107); Cholesterol 192 mg/dL (200); Creatinine, Serum 1.79 mg/dL (0.55-1.02); EST Glomerular Filtration Rate 28 mL/min (>60); Est Glom Filt Rate - Afr Amer 34 mL/min (>60); Glucose 180 mg/dL (74-106); High Density Lipoprotein 85 mg/dL; Potassium 4.2 mmol/L (3.5-5.1); Sodium Level 140 mmol/L (136-145); T4 Free Direct 1.16 ng/dL (0.76-1.46); Thyroid Stim Hormone (TSH) 2.43 uIU/mL (0.358-3.74); Triglycerides 69 mg/dL; Very Low Density Lipoprotein 14 mg/dL (5-40)
== END | disposition home or self-care (01) ==
LOC: MFPLAB 11:32
PROVIDERS: PCP Family Medicine; Referring Provider Family Medicine; Visit Provider Family Medicine
DX: D64.9 Anemia, unspecified (principal); E03.9 Hypothyroidism, unspecified
CPT/HCPCS: 36415; 80048; 80061; 84439; 84443; 84481; 85025

== ENCOUNTER 2022-12-12 00:31 | Inpatient (IN) | payer MEDICARE, OTHER, SELFPAY ==
[2022-12-12] VITALS (7 sets, daily range): BP systolic 116–148; BP diastolic 60–105; PULSE 61–88; RESP 18–20; TEMP 35.9–37.1; O2SAT 92–98; BMI 32.3; BMI 30.4
--- NOTE | 2022-12-12 00:52 | CT_ITS ---
INDICATION: head injury EXAMINATION: CT BRAIN - CT Head or Brain W/O Contrast Injection TECHNIQUE: Multiple axial images were obtained of the head without intravenous contrast. A radiation dose optimization technique was used for this scan. IV Contrast dosage and agent: None. COMPARISON: 09/09/2021 FINDINGS: BRAIN PARENCHYMA: No intra- or extra-axial hemorrhage. No evidence of acute infarct. No intracranial mass or mass effect. There is a chronic microvascular periventricular white matter ischemic change. Posterior fossa structures are unremarkable. CSF SPACES: Appropriate for age. No hydrocephalus. Basal cisterns are patent. CALVARIUM, SKULL BASE, PARANASAL SINUSES AND MASTOID AIR CELLS: Clear. 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 There has been no significant change since 09/09/2021. ORBITS: Both globes, extraocular muscles, optic nerves and retrobulbar fat appear unremarkable. ASPECTS Score for Acute Strokes: 10 CT/Brain/Head without Contrast IMPRESSION: No acute intracranial abnormality. 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 There has been no significant change since 09/09/2021. Electronically Signed: Melba Larkin MD at 1:40 EST ,
--- NOTE | 2022-12-12 01:17 | EX.ED.DYSGE1 ---
HPI History of Present Illness Chief Complaint: Lower Extremity Injury Narrative Narrative: Patient is an 87-year-old female with past medical history of hypertension hyperlipidemia and persistent atrial fibrillation currently on Eliquis. She states around 11:00/11:30 this evening she went to stand up from her recliner chair. She states when she did she lost her balance and fell landing on her buttock/left hip. She denies striking her head or any loss of consciousness. She states that she was able to call her son who was able to help her up but she has pain in that left hip region and has concerned that she may have injured the hip and with this comes to the hospital for evaluation. She states she did not strike her head or have any loss of consciousness and she denies headache change in vision nausea or vomiting. [facility] Medical History Afib Cataracts, bilateral Essential (primary) hypertension Failure to thrive in adult Gallstones Hyperlipidemia Hypothyroid IBS (irritable bowel syndrome) Longstanding persistent atrial fibrillation Non-ischemic cardiomyopathy Non-rheumatic tricuspid valve insufficiency Nonrheumatic aortic (valve) stenosis Obesity Osteoarthritis Seasonal allergies Secondary pulmonary arterial hypertension Type 2 diabetes, controlled, with neuropathy Home Medications coenzyme Q10 200 mg capsule (Co Q-10) 200 mg PO QDAY 11/18/17 [History Last Taken 09/09/21] glucosamine 500 mg-msm 100 mg-vit C 20 id-vlnof-taup-primrose capsule (Joint Support Complex) 1 cap PO DAILY 11/18/17 [History Last Taken 09/09/21] cholecalciferol (vitamin D3) 25 mcg (1,000 unit) capsule 1,000 unit PO DAILY 03/26/18 [History Last Taken 09/09/21] cyanocobalamin (vitamin B-12) 500 mcg tablet 500 mcg PO DAILY supplement 03/26/18 [History Last Taken 09/09/21] levothyroxine 100 mcg tablet 100 mcg PO DAILY thyroid 05/20/19 [History Last Taken 09/09/21] metformin 1,000 mg tablet 500 mg PO TID diabetes 05/20/19 [History Last Taken 09/09/21] apixaban 2.5 mg tablet (Eliquis) 2.5 mg PO DAILY 03/17/21 [History Last Taken 09/09/21] Arthritis Pain Compound 0 click topical BID ##0 09/10/21 [Rx Last Taken Unknown] bisacodyl 5 mg tablet,delayed release 5 mg PO DAILY PRN PRN Constipation #0 tabs 09/10/21 [Rx Last Taken Unknown] insulin lispro 100 unit/mL subcutaneous pen (Humalog KwikPen (U-100) Insulin) See Protocol subcut ACHS #0 mL 09/10/21 [Rx Last Taken Unknown] melatonin 3 mg tablet 3 mg PO QHS PRN PRN Insomnia #0 tabs 09/10/21 [Rx Last Taken Unknown] oxycodone 5 mg capsule 5 mg PO Q6H PRN pain 2 days #8 caps 09/10/21 [Rx Last Taken Unknown] furosemide 20 mg tablet 20 mg PO DAILY this is a reduced dose #30 tabs 01/26/22 [Rx Last Taken Unknown] losartan 100 mg-hydrochlorothiazide 25 mg tablet 1 tab PO DAILY #30 tabs 01/26/22 [Rx Last Taken Unknown] metoprolol tartrate 50 mg tablet 50 mg PO DAILY #30 tabs 01/26/22 [Rx Last Taken Unknown] Allergy/AdvReac Type Severity Reaction Status Date / Time Penicillins Allergy Severe Unknown Verified 08/20/22 22:24 red dye Allergy Severe Unknown Verified 08/20/22 22:24 Family History Grandmother Cancer CVA (cerebral vascular accident) Mother Diabetes Heart disease Father Heart disease Surgical History History of total abdominal hysterectomy Hx of cholecystectomy Social History household members: none Smoking Status: Never smoker second hand exposure: No alcohol intake: never substance use type: does not use ROS ROS ED Constitutional Constitutional ED: Denies chills or fever(s) Eyes Eyes: Denies change in vision ENT ENT ED: Denies sore throat Cardiovascular Cardiovascular: Denies chest pain or racing heartbeat Respiratory/Chest Respiratory/Chest: Denies cough or dyspnea Gastrointestinal Gastrointestinal: Denies abdominal pain, diarrhea, nausea or vomiting Genitourinary Genitourinary ED: Denies dysuria Musculoskeletal Musculoskeletal: Reports other Details: Positive left hip pain ; Denies back pain or neck pain Integumentary Denies Abrasions Neurologic Neurologic: Denies headache(s) or weakness Hematologic/Lymphatic Hematologic/Lymphatic: Reports easy bleeding and easy bruising EXAM Physical Exam Const Vital Signs: 12/12/22 00:34 12/12/22 00:37 Temperature 96.6 F L 96.6 F L Temperature Source Temporal Temporal Pulse Rate 66 61 Respiratory Rate 18 18 Blood Pressure 148/105 H 148/102 H Blood Pressure Mean 119 117 Pulse Ox 95 97 Oxygen Delivery Method Room Air Room Air Positive well nourished and well developed General Appearance ED: well developed HEENT HEENT Narrative: Normocephalic atraumatic No signs of depressed or basilar skull fracture Eyes PERRL and EOMs intact bilaterally Neck supple Neck Narrative: No bony deformity or step-off of the cervical spine no midline pain on palpation Chest Wall palpation of chest normal Chest Narrative: No bony deformity or crepitance Resp normal respiratory effort and clear to auscultation bilaterally Cardio regular rate Rate: other Other Details: Irregularly irregular rhythm with regular rate consistent with history of persistent atrial fibrillation Patient also has a grade 4 out of 6 holosystolic murmur GI normal to inspection, nondistended, normoactive bowel sounds, non-tender, non-distended and no masses GI Narrative: No voluntary guarding or rigidity no pulsatile mass Auscultation: normoactive bowel sounds Palpation: soft Back/Spine Back/Spine Narrative: No bony deformity or step-off of the thoracic or lumbar spine no midline pain on palpation Extremity Extremity Narrative: Pelvis is stable there is no shortening or external rotation of either lower extremity. Patient has pain on palpation over top the greater trochanter region of the left hip. Active and passive range of motion is slightly decreased secondary to pain. Patient has chronic +2 pitting edema to the bilateral lower extremities. Otherwise no obvious bony deformities or joint effusions. Neuro oriented x3 and CN's II-XII intact bilaterally Sensorium / Orientation: alert Psych mental status grossly normal Skin no rashes or lesions noted Skin Narrative: No abrasions or ecchymosis noted MDM MDM MDM Narrative Medical decision making narrative: Patient presented to the ER awake and alert at her baseline mental status. She reported a mechanical fall and therefore I felt no need for cardiac or syncope work-up. However as she is on Eliquis because of persistent atrial fibrillation and had a fall there was concern for underlying brain bleed so a CT of the head was obtained. This revealed no acute fracture or bleed. There are chronic changes noted but these are stable from 2019 and therefore need no further evaluation. The left hip 1 view pelvis shows nondisplaced pubic rami fracture. Patient does not have pain in the pubic rami region but this is consistent with her fall and difficulty walking. This is a nonsurgical fracture and therefore orthopedics does not need to be contacted. The patient lives at home alone and therefore we attempted to ambulate the patient with a walker which she uses. The patient could stand but she could not ambulate. The fact that she can stand goes against a femoral neck fracture and is consistent with the pubic rami fracture. however as she lives alone and cannot ambulate is not safe for her to return home and she will need placement in either a rehab facility or detention until this heals. As it is a weekend I cannot place the patient directly from the ER. Therefore she will be admitted to the hospital on the medical service while awaiting social work consult for placement. Lab Data Attestation: I reviewed the patient's lab results. Labs: Laboratory Results - last 24 hr 12/12/22 12/12/22 02:53 02:53 WBC 12.3 H RBC 3.35 L Hgb 9.7 L Hct 31.7 L MCV 94.6 MCH 29.0 MCHC 30.6 L RDW Std Deviation 50.4 H RDW Coeff of Yane 14.6 Plt Count 172 MPV 10.1 Immature Gran % (Auto) 0.700 Neut % (Auto) 82.2 H Lymph % (Auto) 10.6 L [place] % (Auto) 5.4 Eos % (Auto) 0.8 Baso % (Auto) 0.3 Absolute Neuts (auto) 10.1 H Absolute Lymphs (auto) 1.30 Nucleated RBC % 0 Sodium 142 Potassium 4.4 Chloride 104 Carbon Dioxide 30.0 Anion Gap 8 BUN 50 H Creatinine 1.82 H Estim Creat Clear Calc 18.81 Est GFR (MDRD) Af Amer 34 L Est GFR (MDRD) Non-Af 28 L BUN/Creatinine Ratio 27.5 H Glucose 149 H Calcium 10.3 H Radiography Diagnostic Testing: Clinical Impression(s) from Imaging Studies Brain CT 12/12/22 00:52 IMPRESSION: No acute intracranial abnormality. 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 There has been no significant change since 09/09/2021. Electronically Signed: Melba Larkin MD at 1:40 EST , Hip/Pelvis X-Ray 12/12/22 01:20 IMPRESSION: Nondisplaced fractures of left superior and inferior pubic rami. Demineralization of the osseous structures consistent with osteoporosis. Electronically Signed: Melba Larkin MD at 1:44 EST , X-ray of the left hip with 1 view pelvis as interpreted by the emergency medicine physician reveals a nondisplaced left superior and inferior pubic rami fracture. Discharge Plan Triage Chief Complaint: Lower Extremity Injury ED Provider: Fercho Craig Dx/Rx/DC Orders Clinical Impression: Closed fracture of left inferior pubic ramus, Longstanding persistent atrial fibrillation, Closed fracture of left superior pubic ramus, Current use of fpc anticoagulation, Inability to walk, Accidental fall Primary Care Provider: Efrain Corbin Disposition Disposition: Acute Care [facility]
--- NOTE | 2022-12-12 01:20 | RAD_ITS ---
INDICATION: pain EXAMINATION/TECHNIQUE: X-RAY - LEFT XR Hip Unilateral with Pelvis when performed; 2-3 Views 3 VIEWS COMPARISON: None. FINDINGS: SOFT TISSUES: No soft tissue swelling or gas. No radiopaque foreign body. BONES/JOINTS: Nondisplaced fractures of left superior and inferior pubic rami. Demineralization of the osseous structures consistent with osteoporosis. RAD/HIP, UNI W/ Pelvis 2-3 Views IMPRESSION: Nondisplaced fractures of left superior and inferior pubic rami. Demineralization of the osseous structures consistent with osteoporosis. Electronically Signed: Melba Larkin MD at 1:44 EST ,
[2022-12-12] MEDS: HYDROcodone Bitartrate/Apap 5/325 Tablet PO (01:26)
--- NOTE | 2022-12-12 02:56 | PCM.HP.STD ---
HPI - General General Date of Admission: 12/12/22 Date of Service: 12/12/22 Chief Complaint: Fall HPI Narrative KHANH VANEGAS, is a 87 F with a significant history of hypertension; diabetes mellitus; hypothyroidism and bilateral leg edema who presents to the emergency department with a fall. Reportedly patient got up from her recliner she lost her balance and she fell. She landed at her left hip and reports pain at the left hip. She denies any other symptoms. At the emergency department attempt was made for patient to walk patient was unable to walk secondary to pain. [facility] Medical History Afib Cataracts, bilateral Essential (primary) hypertension Failure to thrive in adult Gallstones Hyperlipidemia Hypothyroid IBS (irritable bowel syndrome) Longstanding persistent atrial fibrillation Non-ischemic cardiomyopathy Non-rheumatic tricuspid valve insufficiency Nonrheumatic aortic (valve) stenosis Obesity Osteoarthritis Seasonal allergies Secondary pulmonary arterial hypertension Type 2 diabetes, controlled, with neuropathy Home Medications glucosamine 500 mg-msm 100 mg-vit C 20 ma-wacae-lnrm-primrose capsule (Joint Support Complex) 1 cap PO DAILY 11/18/17 [History Last Taken 09/09/21] cyanocobalamin (vitamin B-12) 500 mcg tablet 500 mcg PO DAILY supplement 03/26/18 [History Last Taken 09/09/21] levothyroxine 100 mcg tablet 100 mcg PO DAILY thyroid 05/20/19 [History Last Taken 09/09/21] metformin 1,000 mg tablet 500 mg PO TID diabetes 05/20/19 [History Last Taken 09/09/21] apixaban 2.5 mg tablet (Eliquis) 2.5 mg PO DAILY 03/17/21 [History Last Taken 09/09/21] furosemide 20 mg tablet 20 mg PO DAILY this is a reduced dose #30 tabs 01/26/22 [Rx Last Taken Unknown] losartan 100 mg-hydrochlorothiazide 25 mg tablet 1 tab PO DAILY #30 tabs 01/26/22 [Rx Last Taken Unknown] metoprolol tartrate 50 mg tablet 50 mg PO DAILY #30 tabs 01/26/22 [Rx Last Taken Unknown] calcium carbonate 600 mg calcium (1,500 mg) tablet (Calcium) 1,200 mg PO DAILY 12/12/22 [History Last Taken Unknown] loratadine 10 mg tablet 10 mg PO DAILY 12/12/22 [History Last Taken Unknown] potassium 99 mg tablet 99 mg PO DAILY 12/12/22 [History Last Taken Unknown] vitamin E 400 unit tablet 400 unit PO BID 12/12/22 [History Last Taken Unknown] Allergy/AdvReac Type Severity Reaction Status Date / Time Penicillins Allergy Severe Unknown Verified 08/20/22 22:24 red dye Allergy Severe Unknown Verified 08/20/22 22:24 Family History Grandmother Cancer CVA (cerebral vascular accident) Mother Diabetes Heart disease Father Heart disease Surgical History History of total abdominal hysterectomy Hx of cholecystectomy Social History household members: none Smoking Status: Never smoker second hand exposure: No alcohol intake: never substance use type: does not use ROS ROS Narrative Pertinent positives and pertinent negatives as noted in HPI. All other systems were reviewed and are negative Vital Signs Vital Signs Vital Signs: 12/12/22 00:34 12/12/22 00:37 Temperature 96.6 F L 96.6 F L Temperature Source Temporal Temporal Pulse Rate 66 61 Respiratory Rate 18 18 Blood Pressure 148/105 H 148/102 H Blood Pressure Mean 119 117 Pulse Ox 95 97 Oxygen Delivery Method Room Air Room Air Weight Weight: 85.5 kg Body Mass Index (BMI) 32.3 Physical Exam Narrative Physical exam: General: Well-nourished, well-developed. Head: Normocephalic, atraumatic, no tenderness Eyes: Vision is grossly intact. EOMI ENT: Loss of multiple teeth. no trauma, moist mucous membranes, no rhinorrhea Neck: Nontender, No thyromegaly. CVS: Regular rate and rhythm. S1-S2 present. No murmur, gallop or rub. Respiratory : clear to auscultation bilaterally, chest wall nontender, no wheezing Abdomen: Soft, nontender, nondistended, normal bowel sounds, no masses : Deferred Back: Nontender, no CVA tenderness, no midline spinal tenderness Extremities: Nontender; bilateral lower legs and feet edema. Skin: Normal color, no trauma, abrasions Neuro: Alert, oriented, cranial nerves II through XII grossly intact. Psychiatry: Normal mood. Normal affect. Not depressed. Not anxious. Results Lab / Micro Data Result Diagrams: 12/12/22 02:53 12/12/22 02:[address] 12/12/22 00:52 IMPRESSION: No acute intracranial abnormality. 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 There has been no significant change since 09/09/2021. Electronically Signed: Melba Larkin MD at 1:40 EST , Hip/Pelvis X-Ray 12/12/22 01:20 IMPRESSION: Nondisplaced fractures of left superior and inferior pubic rami. Demineralization of the osseous structures consistent with osteoporosis. Electronically Signed: Melba Larkin MD at 1:44 EST , Assessment & Plan Assessment/Plan (1) Pelvic fracture: (2) Closed fracture of left inferior pubic ramus: (3) Closed fracture of left superior pubic ramus: PLAN: Plan Closed fracture of left superior and inferior pubic rami Hip/pelvis x-ray: Impression of radiologist: Nondisplaced fractures of left superior and inferior pubic rami. Demineralization of the osseous structures consistent with osteoporosis. Hip and pelvis x-ray was independently interpreted and I agree with radiology interpretation. PT and OT consulted. Case management consult. Tylenol [id number]. Oxycodone as needed. Toe-touch weight bearing on left lower extremities. 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 Creatinine presentation was 1.82. Creatinine 12/11/2022 was 1.79. Creatinine on 06/10/2022 was 1.39 and on 03/19/2022 was 1.58. Unclear when her progression of CKD or CALISTA. Trend BMP. Diabetes mellitus Patient with mild hyperglycemia on presentation Declined to be on insulin Monitor Accu-Cheks Home metformin continued. Chronic heart failure with reduced ejection fraction Review of echocardiogram done at [facility] on 02/07/2021 showed estimated ejection fraction of 25 to 30%. Stable Home Lasix continued Tom wrap to bilateral lower extremities Leukocytosis White count 12.3 on presentation. Trended. Hypertension Blood pressure is not within goal Home blood pressure medication continued. Trend blood pressure and adjust blood pressure medications. DVT prophylaxis: Not indicated as patient has been restarted on her home Eliquis for A. fib. Charges/Coding Visit Charges Inpatient E&M: 50353 Init Hosp L2
[2022-12-12 02:57] LABS: Absolute Neutrophil Count 10.1 X10^3/uL (2.0-7.7); Basophil# 0.04 X10^3/uL; Basophil% 0.3 % (0-1); Eosinophils% 0.8 % (0-5); Hematocrit 31.7 % (37-47); Hemoglobin 9.7 g/dL (12.0-15.0); Lymphocyte % 10.6 % (19-41); Mean Corp Hgb Conc 30.6 g/dL (32-36); Mean Corpuscular Volume 94.6 fL (81-99); Mean Platelet Vol. 10.1 fl (6.2-12.0); Monocyte# 0.66 X10^3/uL; Monocyte% 5.4 % (0-10); NRBC Flagged by Analyzer 0 % (0-5); Neutrophil # 10.12 X10^3/uL (2.7-7.7); Neutrophil % 82.2 % (47-70); Platelet Count 172 K/mm3 (150-450); RBC Distribution Width CV 14.6 % (11.6-14.6); RBC Distribution Width SD 50.4 fl (35.1-43.9); Red Blood Count 3.35 M/mm3 (4.2-5.4); White Blood Count 12.3 K/mm3 (4.4-11.0)
[2022-12-12 03:10] LABS: Anion Gap 8 (5-15); BUN 50 mg/dL (7-18); BUN/Creat Ratio 27.5 RATIO (10-20); Calcium,Total 10.3 mg/dL (8.5-10.1); Chloride 104 mmol/L (98-107); Creatinine, Serum 1.82 mg/dL (0.55-1.02); EST Glomerular Filtration Rate 28 mL/min (>60); Est Glom Filt Rate - Afr Amer 34 mL/min (>60); Estimated Creatinine Clearance 18.81 ml/min; Glucose 149 mg/dL (74-106); Potassium 4.4 mmol/L (3.5-5.1); Sodium Level 142 mmol/L (136-145)
[2022-12-12] MEDS: Acetaminophen 500 MG Tablet PO ×3 (06:17→21:43)
[2022-12-12] MEDS: Levothyroxine 100 MCG Tablet PO (06:18)
[2022-12-12 06:40] LABS: Bedside Glucose 160 mg/dL (74-106)
[2022-12-12] MEDS: Cyanocobalamin 500 MCG Tablet PO (10:21)
[2022-12-12] MEDS: 0.9% Normal Saline 1,000 ML 75 ML IV ×2 (10:21→21:43)
[2022-12-12] MEDS: APIXABAN 2.5 MG TABLET (WCH) PO (10:21)
[2022-12-12] MEDS: metFORMIN HCl 500 MG Tablet PO ×3 (10:21→17:57)
--- NOTE | 2022-12-12 11:30 | CASEMGMT ---
Ivana is very [employer] and unable to complete assessment with patient. CHITO EUCEDA called Collins rao, for initial transition planning/care coordination assessment. CHITO EUCEDA introduced self and role at [facility]. Collins states he is HPOA and willing to participate in assessment and is able to answer all questions appropriately. Care providers, pharmacy, and demographics verified. Collins wishes for patient to discharge home but willing for patient to go to SNF if needed for additional therapy. CHITO EUCEDA reviewed with Collins patient's progress with therapy with recommendations for SNF. Collins is agreeable with SNF placement and will be in at 1300 today. CHITO EUCEDA arranged for SW to meet with family to discuss SNF referral. Collins states he has no further needs or concerns at this time. CM to follow for discharge planning needs that may arise. 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 Patient was independent at home. Landy lives next door and checks on patient. Transportation: son, grandson DME/HHC: Patient has shower chair, rasied toilet, cane, walker, and grab bars at home. Patient has been to [facility] and [facility] in the past. Patient has had [facility] in the past. Disposition Plan: Anticipate SNF for addition all therapy. Lola CUELLAR, RN, CM
--- NOTE | 2022-12-12 13:45 | CASEMGMT ---
Addendum entered by Ariadna Whiting 12/12/22 14:51: LINDA informed by RN Lacy iy's second SNF choice is [facility]. JAKE Dela Cruz Original Note: Mission Planner Note SW met with patient and patient's family and introduced herself and role as [facility] Mission Planner. SW requested permission to speak to patient with family present, patient agreed. Patient's grandson Collins, stated he was patient's HCPOA and wanted to review SNF options. LINDA provided Collins with local list of in network providers near [place] and assisted him in reviewing the list. Collins states patient's first choice is [facility] and will need to review the list if other choices are needed. LINDA explained Medicare coverage is typically covered at 100% for days 1-20, then 80% for days 21-100 and recommended they contact their insurance for further information regarding coverage. LINDA then reviewed referral process and verified patient was in agreement with [facility]. Patient agreed and patient's family agreeable to SW sending referral. LINDA will follow up Wednesday. LINDA sent referral to [facility] via [facility]. Plan: [facility] pending acceptance and medically ready. JAKE Dela Cruz
--- NOTE | 2022-12-12 13:54 | CASEMGMT ---
LINDA Note LINDA met with patient and patient's grandson, Collins. Collins states he is patient's HCPOA with two alternative agents identified and will bring in paperwork next time he is able. Collins also reports patient completed Living Will paperwork as well and will bring those documents in as well. Plan: Family will bring in AD paperwork. Ariadna Whiting MSW, JAKE
[2022-12-12] MEDS: 0.9% Saline Lock 10 ML Syringe IV (21:48)
[2022-12-12] MEDS: Menthol/Lanolin/Calamine/Znox 113 GM Tube 1 APPLIC TOPICAL (21:50)
[2022-12-12 22:36] LABS: Bedside Glucose 136 mg/dL (74-106)
[2022-12-13] VITALS (7 sets, daily range): BP systolic 124–142; BP diastolic 63–80; PULSE 61–88; RESP 16–22; TEMP 36.7–37.4; O2SAT 92–96
[2022-12-13] MEDS: Levothyroxine 100 MCG Tablet PO (05:44)
[2022-12-13] MEDS: Acetaminophen 500 MG Tablet 1000 MG PO ×3 (05:44→20:59)
[2022-12-13 06:10] LABS: Bedside Glucose 155 mg/dL (74-106)
[2022-12-13 06:19] LABS: Absolute Lymphocyte Count 1.33 X10^3/uL (0.83-4.51); Absolute Neutrophil Count 5.8 X10^3/uL (2.0-7.7); Basophil# 0.05 X10^3/uL; Basophil% 0.6 % (0-1); Eosinophil# 0.22 X10^3/uL; Eosinophils% 2.8 % (0-5); Hematocrit 30.2 % (37-47); Hemoglobin 9.2 g/dL (12.0-15.0); Lymphocyte # 1.33 X10^3/ul (0.83-4.51); Lymphocyte % 16.6 % (19-41); Mean Corp Hgb Conc 30.5 g/dL (32-36); Mean Corpuscular Hgb 28.8 pg (27.0-32.0); Mean Corpuscular Volume 94.4 fL (81-99); Mean Platelet Vol. 10.3 fl (6.2-12.0); Monocyte# 0.56 X10^3/uL; NRBC Flagged by Analyzer 0 % (0-5); Neutrophil # 5.79 X10^3/uL (2.7-7.7); Neutrophil % 72.5 % (47-70); Platelet Count 144 K/mm3 (150-450); RBC Distribution Width CV 14.6 % (11.6-14.6); RBC Distribution Width SD 50.5 fl (35.1-43.9)
[2022-12-13 06:58] LABS: Anion Gap 9 (5-15); BUN 45 mg/dL (7-18); BUN/Creat Ratio 27.1 RATIO (10-20); Calcium,Total 9.6 mg/dL (8.5-10.1); Chloride 106 mmol/L (98-107); Creatinine, Serum 1.66 mg/dL (0.55-1.02); EST Glomerular Filtration Rate 31 mL/min (>60); Est Glom Filt Rate - Afr Amer 38 mL/min (>60); Estimated Creatinine Clearance 20.62 ml/min; Glucose 148 mg/dL (74-106); Sodium Level 141 mmol/L (136-145)
[2022-12-13] MEDS: metFORMIN HCl 500 MG Tablet PO ×3 (08:44→17:00)
[2022-12-13] MEDS: Menthol/Lanolin/Calamine/Znox 113 GM Tube 1 APPLIC TOPICAL ×2 (08:44→20:59)
[2022-12-13] MEDS: Nystatin Powder 15gm Bottle 1 APPLIC TOPICAL ×2 (08:45→20:59)
[2022-12-13] MEDS: APIXABAN 2.5 MG TABLET (WCH) PO (08:45)
[2022-12-13] MEDS: Cyanocobalamin 500 MCG Tablet PO (08:45)
[2022-12-13] MEDS: 0.9% Normal Saline 1,000 ML 75 ML IV ×2 (08:47→23:58)
--- NOTE | 2022-12-13 09:54 | PCM.PN.HOSP ---
Subjective Subjective Doing well, no issues overnight. She demonstrated the need for SNF because of significant pain and was unable to ambulate Objective Data Objective Data Vital Signs: Vital Signs Temp Pulse Resp BP Pulse Ox O2 Del Method 99.3 F H 80 18 142/80 H 95 Room Air 12/13/22 05:40 12/13/22 08:56 12/13/22 05:40 12/13/22 05:40 12/13/22 05:40 12/13/22 05:40 Oxygen Delivery Method Room Air Weight: 177 lb 8 oz Body Mass Index (BMI) 30.4 Intake & Output: Intake and Output for Last 24 Hours 12/12/22 12/13/22 12/14/22 03:59 03:59 03:59 Intake Total 2069.5 / 2069.5 830 / 830 Output Total 150 / 150 250 / 250 Balance 1919.5 / 1919.5 580 / 580 Lab / Micro Data Result Diagrams: 12/13/22 04:49 12/13/22 04:49 Labs: Laboratory Results - last 24 hr 12/12/22 21:46: POC Glucose 136 H 12/13/22 04:49: WBC 8.0, RBC 3.20 L, Hgb 9.2 L, Hct 30.2 L, MCV 94.4, MCH 28.8, MCHC 30.5 L, RDW Std Deviation 50.5 H, RDW Coeff of Yane 14.6, Plt Count 144 L, MPV 10.3, Immature Gran % (Auto) 0.500, Neut % (Auto) 72.5 H, Lymph % (Auto) 16.6 L, Nicholas % (Auto) 7.0, Eos % (Auto) 2.8, Baso % (Auto) 0.6, Absolute Neuts (auto) 5.8, Absolute Lymphs (auto) 1.33, Nucleated RBC % 0 12/13/22 04:49: Sodium 141, Potassium 4.0, Chloride 106, Carbon Dioxide 26.0, Anion Gap 9, BUN 45 H, Creatinine 1.66 H, Estim Creat Clear Calc 20.62, Est GFR (MDRD) Af Amer 38 L, Est GFR (MDRD) Non-Af 31 L, BUN/Creatinine Ratio 27.1 H, Glucose 148 H, Calcium 9.6 12/13/22 05:49: POC Glucose 155 H Physical Exam Narrative General: Alert, Oriented x3, Cooperative, No apparent distress HEENT: Atraumatic, PERRLA, EOMI, Normocephalic, hard of hearing Oral: Moist Mucosa Neck: Supple, No JVD Lungs: Clear to auscultation, Normal air movement, No rhonchi, No wheeze, No rales Cardiovascular: Regular rate, Regular Rhythm, Normal S1, Normal S2, No murmurs Abdomen: Soft, Non Tender, Non-Distended, No Hepato-splenomegaly Extremities: Edema, Capillary Refill Less than 3 Seconds Skin: No rashes, No breakdown Musculoskeletal: No Tenderness to Palpation of Joints or Extremities Neurological: Cranial nerves II-XII grossly intact, Motor Exam 5/5 strength throughout, Sensory exam intact to light touch and pain Psych/Mental Status: Normal Affect, Appropriate Assessment & Plan Assessment/Plan (1) Pelvic fracture: (2) Closed fracture of left inferior pubic ramus: (3) Closed fracture of left superior pubic ramus: PLAN: Plan 1. Debility status post mechanical fall with closed fracture of the left superior and inferior pubic rami with significant pain on ambulation/CALISTA on CKD 3B ? PT/OT ? Pain management ? Plan for SNF placement ? Creatinine peaked at 1.8, will start her on IV fluids and monitor renal function 2. Chronic systolic CHF/HTN/HLD/A. fib blood pressures are stable ? She does have a little bit of edema ? Continue with Eliquis ? We will hold her Lasix secondary to her CALISTA ? We will hold her losartan hydrochlorothiazide pending continued improvement in her renal function 3. DM2 ? She was continued on her metformin as she refuses insulin, will be cautious and discontinue if any further imaging studies with contrast need to be obtained ? Accu-Cheks AC at bedtime ? We will make adjustments as necessary 4. Hypothyroidism ? Stable ? Continue with Synthroid DVT: Eliquis Charges/Coding Visit Charges Inpatient E&M: 60942 Subs Hosp L2
[2022-12-13] MEDS: 0.9% Saline Lock 10 ML Syringe IV (20:59)
[2022-12-13 21:35] LABS: Bedside Glucose 211 mg/dL (74-106)
[2022-12-14] MEDS: Acetaminophen 500 MG Tablet 1000 MG PO ×2 (04:36→14:56)
[2022-12-14] MEDS: Levothyroxine 100 MCG Tablet PO (04:37)
[2022-12-14 04:44] VITALS: BP 146/75; PULSE 83; RESP 20; TEMP 37; O2SAT 93
[2022-12-14 06:10] LABS: Anion Gap 7 (5-15); BUN 43 mg/dL (7-18); BUN/Creat Ratio 27.9 RATIO (10-20); Calcium,Total 9.6 mg/dL (8.5-10.1); Chloride 108 mmol/L (98-107); Creatinine, Serum 1.54 mg/dL (0.55-1.02); EST Glomerular Filtration Rate 34 mL/min (>60); Est Glom Filt Rate - Afr Amer 41 mL/min (>60); Estimated Creatinine Clearance 22.22 ml/min; Glucose 164 mg/dL (74-106); Potassium 3.8 mmol/L (3.5-5.1); Sodium Level 140 mmol/L (136-145)
[2022-12-14 07:11] LABS: Bedside Glucose 179 mg/dL (74-106)
[2022-12-14 08:44] VITALS: BP 136/75; PULSE 83; RESP 18; TEMP 36.6; O2SAT 95
[2022-12-14] MEDS: metFORMIN HCl 500 MG Tablet PO ×2 (08:49→12:20)
[2022-12-14] MEDS: APIXABAN 2.5 MG TABLET (WCH) PO (10:03)
[2022-12-14] MEDS: Nystatin Powder 15gm Bottle 1 APPLIC TOPICAL (10:03)
[2022-12-14] MEDS: Cyanocobalamin 500 MCG Tablet PO (10:04)
[2022-12-14] MEDS: Menthol/Lanolin/Calamine/Znox 113 GM Tube 1 APPLIC TOPICAL (10:04)
[2022-12-14] MEDS: oxyCODONE 5 MG Tablet PO (11:36)
[2022-12-14 11:51] LABS: Bedside Glucose 226 mg/dL (74-106)
--- NOTE | 2022-12-14 12:53 | CASEMGMT ---
Social Work Wilfrido Yoder reached out via [facility]. Pt has been accepted. [facility] asked that pt not be transported until after 3pm. MD Haines notified of pt acceptance. MD Haines shared intent to d/c pt today. SW in to notify pt of acceptance and discharge to [facility] today. Pt voiced understanding. Pt family member in the room, stated would call other family to inform them of discharge plan. PLAN: [facility] VINNY Helton
--- NOTE | 2022-12-14 12:57 | TREXTCAR_ITS ---
Diet Diet Order/Speech Therapy: 12/12/22 04:14 Diet: Consistent Carb - Calorie Controlled Food consistency:: Regular Liquid Consistency:: Regular/Thin Is pt able to select menu?: No Diet Comments: please send soft foods, coffee for b fast, iced tea w/sweetener for other 2 How many daily calories?: 1800 calorie Routine Orders/Code Status Suppository Frequency: Daily PRN O2 Frequency: PRN Keep PO Greater than or Equal to (%): 92 Code Status: Full Code Therapies Weight Bearing: Weight bearing as tolerated Extremity Affected:: Left Lower Physical Therapy: Eval and Treat Occupational Therapy: Eval and Treat Problem/Diagnosis (1) Pelvic fracture: Status: Acute Code(s): S32.9XXA - Fracture of unspecified parts of lumbosacral spine and pelvis, ini tial encounter for closed fracture (2) Closed fracture of left inferior pubic ramus: Status: Acute Code(s): S32.592A - Other specified fracture of left pubis, initial encounter for closed fracture (3) Closed fracture of left superior pubic ramus: Status: Acute Code(s): S32.512A - Fracture of superior rim of left pubis, initial encounter for closed fracture Allergies/Procedures Done in Hospital Allergies Penicillins Allergy (Severe, Verified 08/20/22 22:24) Unknown red dye Allergy (Severe, Verified 08/20/22 22:24) Unknown Procedures: None Type of Care/Length of Stay Estimated LOS: Convalescent Care Less Than 30 days Type of Care Needed: Skilled Rehab Potential: Good Prognosis: Fair Additional Orders/Day of Discharge Day of Discharge: 12/14/22 Discharge Plan Admission Admit Date/Time: 12/12/22 15:12 Attending Provider: Gabrielle Haines Primary Care Provider: Efrain Corbin Consulting Providers: Brayden Veloz ; Ortega Herrera Discharge Orders/Prescriptions Prescriptions: No Action [id number] [Joint Support Complex] 469-922-59-0.5 mg capsule 1 cap PO DAILY Eliquis 2.5 mg tablet 2.5 mg PO DAILY cyanocobalamin (vitamin B-12) 500 MCG tablet 500 mcg PO DAILY levothyroxine 100 MCG tablet 100 mcg PO DAILY metformin 1,000 MG tablet 500 mg PO TID calcium carbonate [Calcium 600] 600 mg calcium (1,500 mg) Tablet 1,200 mg PO DAILY potassium 99 mg Tablet 99 mg PO DAILY vitamin E 400 unit Tablet 400 unit PO BID loratadine 10 mg Tablet 10 mg PO DAILY furosemide 20 mg tablet 20 mg PO DAILY Qty: 30 11RF losartan-hydrochlorothiazide 100-25 mg tablet 1 tab PO DAILY Qty: 30 11RF metoprolol tartrate 50 mg tablet 50 mg PO DAILY Qty: 30 11RF Referrals / Follow Up: Efrain Corbin MD [Primary Care Provider] -
--- NOTE | 2022-12-14 13:01 | DS.PCM_ITS ---
Providers Date of Admission: 12/12/22 Date of Discharge: 12/14/22 Primary Care Physician: Dr. Efrain Corbin MD Reason For Visit: NONDISPLACED FRACTURES OF LEFT SUPERIOR AND Diagnosis Discharge Diagnosis (1) Pelvic fracture: Status: Acute Code(s): S32.9XXA - Fracture of unspecified parts of lumbosacral spine and pelvis, initial encounter for closed fracture (2) Closed fracture of left inferior pubic ramus: Status: Acute Code(s): S32.592A - Other specified fracture of left pubis, initial encounter for closed fracture (3) Closed fracture of left superior pubic ramus: Status: Acute Code(s): S32.512A - Fracture of superior rim of left pubis, initial encounter for closed fracture Medications at Discharge Home Medications glucosamine 500 mg-msm 100 mg-vit C 20 ua-vglxc-xmcy-primrose capsule (Joint Support Complex) 1 cap PO DAILY 11/18/17 cyanocobalamin (vitamin B-12) 500 mcg tablet 500 mcg PO DAILY supplement levothyroxine 100 mcg tablet 100 mcg PO DAILY thyroid 05/20/19 metformin 1,000 mg tablet 500 mg PO TID diabetes 05/20/19 apixaban 2.5 mg tablet (Eliquis) 2.5 mg PO DAILY 03/17/21 furosemide 20 mg tablet 20 mg PO DAILY this is a reduced dose #30 tabs 01/26/22 losartan 100 mg-hydrochlorothiazide 25 mg tablet 1 tab PO DAILY #30 tabs 01/26/22 metoprolol tartrate 50 mg tablet 50 mg PO DAILY #30 tabs 01/26/22 calcium carbonate 600 mg calcium (1,500 mg) tablet (Calcium) 1,200 mg PO DAILY 12/12/22 loratadine 10 mg tablet 10 mg PO DAILY 12/12/22 potassium 99 mg tablet 99 mg PO DAILY 12/12/22 vitamin E 400 unit tablet 400 unit PO BID 12/12/22 menthol 0.44 %-zinc oxide 20.6 % topical ointment (Calmoseptine) 1 applic topical BID #0 grams 12/14/22 nystatin 100,000 unit/gram topical powder (Nyamyc) 1 applic topical BID #0 grams 12/14/22 oxycodone 5 mg tablet 5 mg PO Q6H PRN pain 1 day #4 tabs 12/14/22 sennosides 8.6 mg-docusate sodium 50 mg tablet (Stool Softener-Stimulant Laxat breanna) 2 tab PO BID PRN PRN Constipation #0 tabs 12/14/22 Hospital Course Operations None Procedures None and - (Head/hip/pelvic x-rays) Summary of Care Provided Minutes Spent on Discharge: 37 Hospital Course: Mrs. Clayton is an 87-year-old white female who presented from home after suffering a mechanical fall on 12/12/2022. She evidently had gotten up from a recliner lost her balance and fell and landed on her left hip. That occurred at about 11-11 30 on the evening of presentation. She indicated she just lost her balance and fell to her left side. She did not strike her head or have any loss of consciousness. She is able to call her son who came over to help her but was unable to ambulate secondary to her pain therefore she came the emergency department. Vital signs at the time of presentation were unremarkable. She is on Eliquis at baseline for paroxysmal atrial fibrillation and therefore a CT of her head was performed and was negative for any acute bleeding. Chronic changes were noted. Given her pain x-rays of her hip and pelvis were performed and showed a nondisplaced left-sided inferior and superior pubic ramus fracture. Given the fact that she lives at home alone and was unable to ambulate with a walker she was admitted to hospital for placement. She was evaluated the emergency department and was able to stand but only to walk independently. She was admitted the hospital for placement purposes. Her labs were stable throughout her hospital course. And she was evaluated by Physical and Occupatio nal Therapy. She was able to be discharged to [facility] on 12/14/2022 in stable condition. 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 DM-2 Physical Exam Const alert, oriented x3, no apparent distress and well nourished Constitutional Narrative: Elderly, pleasant, obese, white female sitting up in bed, extremely hard of hearing, nontoxic General Appearance: cooperative, comfortable, well kempt and well developed Orientation / Consciousness: awake, oriented to person, oriented to place and oriented to time Exam Limitations: no limitations Nutritional Appearance: obese HEENT normocephalic, head/scalp atraumatic and moist oral mucous membranes; Negative for hearing grossly normal bilaterally HEENT Narrative: Marked hearing loss Eyes PERRL and EOMs intact bilaterally Eyes Narrative: Mildly pale conjunctiva bilaterally, no scleral icterus Neck no lymphadenopathy and supple Neck Narrative: Trachea midline, no thyroid enlargement Resp normal respiratory effort, no retractions and no use of accessory muscles Auscultation: Negative for crackles, rhonchi or wheezes Cardio regular rate, S1 normal heart sound, S2 normal heart sound, no rub, no gallops and no clicks; Negative for regular rhythm or no murmurs Cardio Narrative: Irregularly irregular rhythm with normal rate, 4 out of 6 systolic murmur loudest at right upper sternal border GI normal to inspection, nondistended, normoactive bowel sounds, soft to palpation and non-tender Extremity no clubbing, cyanosis or edema Extremity Narrative: 2+ pedal pulses Skin no rashes or lesions noted, skin turgor normal and no jaundice Neuro oriented x3, CN's II-XII intact bilaterally, moves all extremities and no focal motor deficits Sensorium / Orientation: awake, alert, oriented to person, oriented to place and oriented to time Speech: speech normal Psych affect normal Psych Narrative: Very pleasant Weight / BMI Weight Weight: 80.513 kg Body Mass Index (BMI) 30.4 ABG / Lab / Microbiology Data Result Diagrams: 12/13/22 04:49 12/14/22 04:53 Laboratory: Laboratory Results - last 24 hr 12/13/22 20:56: POC Glucose 211 H 12/14/22 04:53: Sodium 140, Potassium 3.8, Chloride 108 H, Carbon Dioxide 25.0, Anion Gap 7, BUN 43 H, Creatinine 1.54 H, Estim Creat Clear Calc 22.22, Est GFR (MDRD) Af Amer 41 L, Est GFR (MDRD) Non-Af 34 L, BUN/Creatinine Ratio 27.9 H, Glucose 164 H, Calcium 9.6 12/14/22 06:48: POC Glucose 179 H 12/14/22 11:27: POC Glucose 226 H D/C Instructions Discharge Diet: Low fat / Low cholesterol and 1800 Calorie Control Diet Meaningful Use Info Meaningful Use Diagnoses (Choose all that apply): None applicable Discharge Plan Admission Admit Date/Time: 12/12/22 15:12 Primary Reason for Your Visit: Mechanical Fall with L Hip pain Attending Provider: Gabrielle Haines Primary Care Provider: Efrain Corbin Consulting Providers: Brayden Veloz ; Ortega Herrera Discharge Orders/Prescriptions Prescriptions: New oxycodone 5 mg Tablet 5 mg PO Q6H PRN (Reason: pain) 1 Days Qty: 4 0RF sennosides-docusate sodium [Stool Softener-Stimulant Laxat] 8.6-50 mg Tablet 2 tab PO BID PRN PRN (Reason: Constipation) Qty: 0 0RF nystatin [Nyamyc] 100,000 unit/gram Powder 1 applic topical BID Qty: 0 0RF Protocol: *Topical Application Instructions APPLICATION INSTRUCTIONS: abdominal folds and groin menthol-zinc oxide [Calmoseptine] 0.44-20.6 % Ointment 1 applic topical BID Qty: 0 0RF Protocol: *Topical Application Instructions APPLICATION INSTRUCTIONS: buttocks Continued aloeu-krf-G-aecxp-qkce-nhw [Joint Support Complex] [id number] mg capsule 1 cap PO DAILY Eliquis 2.5 mg tablet 2.5 mg PO DAILY cyanocobalamin (vitamin B-12) 500 MCG tablet 500 mcg PO DAILY levothyroxine 100 MCG tablet 100 mcg PO DAILY metformin 1,000 MG tablet 500 mg PO TID calcium carbonate [Calcium 600] 600 mg calcium (1,500 mg) Tablet 1,200 mg PO DAILY potassium 99 mg Tablet 99 mg PO DAILY vitamin E 400 unit Tablet 400 unit PO BID loratadine 10 mg Tablet 10 mg PO DAILY furosemide 20 mg tablet 20 mg PO DAILY Qty: 30 11RF losartan-hydrochlorothiazide 100-25 mg tablet 1 tab PO DAILY Qty: 30 11RF metoprolol tartrate 50 mg tablet 50 mg PO DAILY Qty: 30 11RF Referrals / Follow Up: Efrain Corbin MD [Primary Care Provider] - Within 2 Weeks Disposition Disposition (needs filled in before D/C Order can be placed): Long Term Facility Charges/Coding Visit Charges Inpatient E&M: 02945 SNF Disch >30 Min
--- NOTE | 2022-12-14 14:26 | CASEMGMT ---
Social Work? LINDA completed 7000 convalescent form in [employer] [facility]. Set up cot transportation [facility] for 4:00 pm. LINDA faxed all discharge orders to [facility] via [facility] and notified of discharge time. LINDA notified pt nurse of transport time. LINDA made copies of discharge orders and placed on pt chart. Sent original orders in envelope with pt upon discharge.??Pt and family made aware of d/c previously this day. Disposition: [facility], skilled, convalescent, level of care? [facility]
--- NOTE | 2022-12-14 14:41 | CHAPLAIN ---
Type of Pastoral Visit _x__ Initial Visit ___ Follow-up Visit ___ On-call Visit ___ General Patient Visit ___ Spiritual Assessment ___ Family Conference ___ Bereavement ___ Rapid Response ___ Code Blue ___ Other (describe below) Pastoral Care Referral From _x__ Patient ___ Family ___ Nurse ___ Physician ___ Paper Coating Supervisor ___ Environmental Sampler ___ Other (describe below) Sacrament/Intervention _x__ Active listening ___ Anointing ___ Adventism ___ Bereavement ___ Communion _x__ Tiffany exploration ___ ___ Life review _x__ Prayer ___ Reconciliation ___ Sacrament of Sick _x__ Supportive presence ___ Wedding ___ Other (describe below) Pastoral Comments patient is hard of hearing and legally blind; pt is able to converse with the help of her daughter who is in the room and by speaking directly into her ear; pt explains her pain and her living situation with a fall; family members are close by to assist her; patient used to attend jainism locally but not in recent years; pt states her concern which is for her children and grandchildren and for them to be Christians; pt welcomed prayer and presence for support
[2022-12-14 15:27] VITALS: BP 121/64; PULSE 82; RESP 18; TEMP 36.7; O2SAT 95
--- NOTE | 2022-12-14 15:49 | PHA.DC.MR ---
Pharmacy Service has performed discharge medication reconciliation for this patient prior to discharge to [facility]. Home Medications glucosamine 500 mg-msm 100 mg-vit C 20 nd-invjo-nfqn-primrose capsule (Joint Support Complex) 1 cap PO DAILY 11/18/17 cyanocobalamin (vitamin B-12) 500 mcg tablet 500 mcg PO DAILY supplement 03/26/18 levothyroxine 100 mcg tablet 100 mcg PO DAILY thyroid 05/20/19 metformin 1,000 mg tablet 500 mg PO TID diabetes 05/20/19 apixaban 2.5 mg tablet (Eliquis) 2.5 mg PO DAILY 03/17/21 furosemide 20 mg tablet 20 mg PO DAILY this is a reduced dose #30 tabs 01/26/22 losartan 100 mg-hydrochlorothiazide 25 mg tablet 1 tab PO DAILY #30 tabs 01/26/22 metoprolol tartrate 50 mg tablet 50 mg PO DAILY #30 tabs 01/26/22 calcium carbonate 600 mg calcium (1,500 mg) tablet (Calcium) 1,200 mg PO DAILY 12/12/22 loratadine 10 mg tablet 10 mg PO DAILY 12/12/22 potassium 99 mg tablet 99 mg PO DAILY 12/12/22 vitamin E 400 unit tablet 400 unit PO BID 12/12/22 menthol 0.44 %-zinc oxide 20.6 % topical ointment (Calmoseptine) 1 applic topical BID #0 grams 12/14/22 nystatin 100,000 unit/gram topical powder (Nyamyc) 1 applic topical BID #0 grams 12/14/22 oxycodone 5 mg tablet 5 mg PO Q6H PRN pain 1 day #4 tabs 12/14/22 sennosides 8.6 mg-docusate sodium 50 mg tablet (Stool Softener-Stimulant Laxative) 2 tab PO BID PRN PRN Constipation #0 tabs 12/14/22 The patient's discharge medication list was reviewed for discrepancies and discrepancies were resolved.
--- NOTE | 2022-12-14 15:52 | NURSING ---
report called to [facility] and gave report to Patricia felix
== END 2022-12-14 15:57 | disposition skilled nursing facility (03) | DRG 536 ==
LOC: ED 01:40 → MS3 03:19
PROVIDERS: Family Medicine; Admitting Provider Hospitalist; Emergency Provider Emergency Medicine; PCP Family Medicine; Visit Provider Internal Medicine
DX: S32.512A Fracture of superior rim of left pubis, initial encounter for closed fracture (principal); I13.0 Hypertensive heart and chronic kidney disease with heart failure and stage 1 through stage 4 chronic kidney disease, or unspecified chronic kidney disease; N17.9 Acute kidney failure, unspecified; I50.22 Chronic systolic (congestive) heart failure; I42.8 Other cardiomyopathies; I48.20 Chronic atrial fibrillation, unspecified; I27.22 Pulmonary hypertension due to left heart disease; D69.6 Thrombocytopenia, unspecified; D63.1 Anemia in chronic kidney disease; E11.40 Type 2 diabetes mellitus with diabetic neuropathy, unspecified; E11.21 Type 2 diabetes mellitus with diabetic nephropathy; S32.592A Other specified fracture of left pubis, initial encounter for closed fracture; N18.32 Chronic kidney disease, stage 3b; E11.22 Type 2 diabetes mellitus with diabetic chronic kidney disease; E11.65 Type 2 diabetes mellitus with hyperglycemia; E78.5 Hyperlipidemia, unspecified; E03.9 Hypothyroidism, unspecified; W18.39XA Other fall on same level, initial encounter; R26.2 Difficulty in walking, not elsewhere classified; K58.9 Irritable bowel syndrome, unspecified; I35.0 Nonrheumatic aortic (valve) stenosis; M19.90 Unspecified osteoarthritis, unspecified site; E66.9 Obesity, unspecified; R53.81 Other malaise; Z68.30 Body mass index [BMI] 30.0-30.9, adult; Z60.2 Problems related to living alone; Z79.01 Long term (current) use of anticoagulants; Z79.84 Long term (current) use of oral hypoglycemic drugs; Z79.899 Other long term (current) drug therapy
CPT/HCPCS: 36415; 70450; 73502; 80048; 80061; 82962; 84439; 84443; 84481; 85025; 87426; 97110; 97162; 97166; 97530; 97535; 99285; J7030; A4216